=== PATIENT | male | born 1970 | race Caucasian/White ===

== ENCOUNTER 2017-04-02 14:18 | Inpatient (IN) | payer MEDICARE, OTHER ==
[~2017-04-02] VITALS: Ht 190.5 cm; Wt 115.1 kg
--- NOTE | ~2017-04-02 | HEMODYNAMI ---
PATIENT:FLO KAMARA MEDICAL RECORD: [id number] : 72 LOCATION:[address] ADMISSION DATE: 04/02/17 Generatedon:04/04/201712:53 Patient name: FLO KAMARA Patient #: [id number] SSN: : 1970 Date of study: 04/04/2017 Page: Of Hemodynamic Procedure Report Patient Data Patient Demographics Procedure consent was obtained First Name: FLO Gender: Male Last Name: ASAD : 1970 Middle Initial: P Age: 46 year(s) Patient #: [id number] Race: Unknown Additional ID: [id number] Contact details Address: [address] [place] [address] State: [place] City: [place] Zip code: [address] Admission Admission Data Admission Date: 04/02/2017 Admission Time: 18:48 Room #: D.2136 Procedure Procedure Types Cath Procedure Peripheral Cath Diagnostic Procedure Miscellaneous Procedure Description Procedure Date Procedure Date: 04/04/2017 Procedure Start Time: 11:53 Procedure Staff Name Function Mukund Johnson MD Performing Physician Yusuf Mari RT Scrub Mahogany Barnett RN Nurse Keren Campos RT Monitor Procedure Medications Medication Administration Route Dosage Versed I.V. 1 mg Fentanyl I.V. 50 mcg Versed I.V. 1 mg Fentanyl I.V. 50 mcg Hemodynamics Rest Heart Rate: 85 (bpm) Snapshots Pre Cath Intra NCS Post Cath Vital Signs Time Heart Resp SPO2 etCO2 NIBP (mmHg) Rhythm Pain Sedation Rate (ipm) (%) (mmHg) Status Level (bpm) 11:39:57 84 19 98 33.4 145/75(100) NSR 0 (11) 10(A) , No pain 11:44:15 84 15 97 38 138/77(99) NSR 0 (11) 10(A) , No pain 11:48:35 83 15 98 37.2 131/71(99) NSR 0 (11) 10(A) , No pain 11:52:54 84 19 96 35.6 129/73(103) NSR 0 (11) 10(A) , No pain 11:57:12 85 17 95 37.2 141/76(101) NSR 0 (11) 10(A) , No pain 12:01:30 86 24 94 36.4 131/78(105) NSR 0 (11) 10(A) , No pain 12:05:50 83 14 97 19.7 136/68(99) NSR 0 (11) 10(A) , No pain 12:10:08 83 13 98 15.9 137/64(98) NSR 0 (11) 10(A) , No pain 12:14:24 81 14 98 15.1 127/65(95) NSR 0 (11) 10(A) , No pain 12:18:38 81 12 98 38.6 122/58(82) NSR 0 (11) 10(A) , No pain 12:22:52 82 11 98 34.1 115/58(84) NSR 0 (11) 10(A) , No pain 12:27:06 84 12 98 38.7 119/56(78) NSR 0 (11) 10(A) , No pain 12:31:20 85 13 99 39.4 119/54(82) NSR 0 (11) 10(A) , No pain 12:35:32 85 11 99 37.2 108/55(78) NSR 0 (11) 10(A) , No pain 12:39:46 86 13 99 26.5 112/53(80) NSR 0 (11) 10(A) , No pain 12:44:02 85 11 99 26.5 114/56(76) NSR 0 (11) 10(A) , No pain 12:48:16 85 16 99 22 112/54(83) NSR 0 (11) 10(A) , No pain 12:52:30 86 13 99 30.3 119/58(85) NSR 0 (11) 10(A) , No pain Medications Time Medication Route Dose Verified Delivered Reason Notes Effectivene ss by by 11:55:42 Versed I.V. 1 mg Mukund Vides for Anibal Johnson RN sedation 11:55:54 Fentanyl I.V. 50 Mukund Vides for Anibal Parra RN sedation 12:09:08 Versed I.V. 1 mg Mukund Vides for Anibal Johnson RN sedation 12:09:17 Fentanyl I.V. 50 Mukund Vides for Anibal Parra RN sedation Procedure Log Time Note 11:30:22 Yusuf Mari RT (R) (CV) sent for patient. Start room use. 11:30:34 Time tracking: Regular hours 11:30:38 Plan of Care:Hemodynamics will remain stable., Cardiac rhythm will remain stable., Comfort level will be maintained., Respiratory function will remain adequate., Patient/ family verbilizes understanding of procedure., Procedure tolerated without complication., Recovers from procedure without complications.. 11:30:46 Patient arrived from Med II to IR. Patient remains on bed/stretcher for procedure. 11:30:51 Correct patient and procedure confirmed by team. 11:30:52 Signed procedure consent form obtained from patient. 11:30:53 ECG and BP/O2 sat monitors applied to patient. 11:30:54 Full Disclosure recording started 11:30:56 - 11:30:59 H&P Date Dictated: 04/04/2017 Within 30 days and on chart.. 11:38:43 Vital chart was started 11:38:44 Baseline sample Acquired. 11:38:48 - 11:38:51 Pre-procedure instructions explained to patient. 11:38:52 Pre-op teaching completed and patient verbalized understanding. 11:38:56 Family unavailable. 11:38:59 Patient NPO since Midnight. 11:39:07 Is patient on blood thinner?No 11:39:14 Patient diabetic? No. 11:39:18 - 11:39:22 ----Pre-sedation anethsthesia assessment.---- 11:39:25 Previous problem with sedation/anesthesia? No ? 11:39:32 Snore? Yes 11:39:35 Sleep apnea? No 11:39:38 Deviated septum? No 11:39:44 Opens mouth fully? Yes 11:39:48 Sticks out tongue? Yes 11:39:53 Airway obstruction? No ? 11:39:57 Dentures? No ? 11:39:59 - 11:40:12 IV patent on arrival in right wrist with 0.9% NaCl at O. 11:40:24 Right abdomen area was prepped with chlora-prep and draped in sterile fashion 11:40:26 Alarms reviewed by Nanci Schmid 11:40:27 Sharps counted by scrub and verified by Lesli 11:40:28 - 11:42:18 CONNECTING TUBE FOR DRAINAGE BAG opened to sterile field. 11:42:19 [id number] 8FR CATH DRAIN TRAY opened to sterile field. 11:51:44 Physician arrived 11:52:10 --------ALL STOP TIME OUT------ 11:52:11 Final Timeout: patient, procedure, and site verified with staff and physician. All members of the team are in agreement. 11:52:19 Physical assessment completed. ASA score P 3 - A patient with severe systemic disease as per Mukund Johnson MD. 11:52:27 Sedation plan: IV Moderate Sedation Versed, Fentanyl 11:52:42 Procedure started. 11:53:18 Local anesthetic to Abdominal area with Lidocaine 1% by Mukund Johnson MD.INITIAL ACCESS ONLY 11:55:42 Versed 1 mg I.V. was administered by Mahogany Barnett RN; for sedation; 11:55:54 Fentanyl 50 mcg I.V. was administered by Mahogany Barnett RN; for sedation ; 12:09:08 Versed 1 mg I.V. was administered by Mahogany Barnett RN; for sedation; 12:09:17 Fentanyl 50 mcg I.V. was administered by Mahogany Barnett RN; for sedation ; 12:49:45 17.6 fluid drained from abdomen 12:50:40 Procedure ended.(Physican Out) 12:53:57 Vital chart was stopped Device Usage Item Name Manufacture Quantity Catalog Hospital Part Current Mini mal Lot# / Number Charge Number Stock Stock Serial# Code CONNECTING TUBE [place] 1 [id number] [id number] [id number] 5 FOR DRAINAGE Scientific BAG [id number] CareFusion 1 [id number] 242955 5 8FR CATH DRAIN TRAY Signature Audit [place] Stage Time Signature Unsigned Intra-Procedure 04/04/2017 Keren Campos 12:53:53 PM RT(R) Signatures Monitor : Keren Campos RT Signature : Date : Time : [address] [address]
--- NOTE | ~2017-04-02 | HEMODYNAMI ---
PATIENT:FLO KAMARA MEDICAL RECORD: [id number] : 72 LOCATION:[place] [address] ADMISSION DATE: 04/02/17 Generatedon:04/07/201714:49 Patient name: FLO KAMARA Patient #: [id number] SSN: : 1970 Date of study: 04/07/2017 Page: Of Hemodynamic Procedure Report Patient Data Patient Demographics Procedure consent was obtained First Name: FLO Gender: Male Last Name: ASAD : 1970 Middle Initial: P Age: 46 year(s) Patient #: [id number] Race: Unknown Additional ID: [id number] Contact details Address: [address] [place] [address] State: [place] City: [place] Zip code: [address] Admission Admission Data Admission Date: 04/02/2017 Admission Time: 18:48 Room #: 2136 Height (in.): 75 BSA: 2.44 (m2) Height (cm.): 190.5 BMI: 32.22 (kg/m2) Weight (lbs.): 257.79 Weight (kg.): 116.93 Procedure Procedure Types Cath Procedure Diagnostic Procedure Right Heart RHC and LHC w/Coronaries Miscellaneous Procedures Moderate Sedation up to 45 minutes Procedure Description Procedure Date Procedure Date: 04/07/2017 Procedure Start Time: 14:00 Procedure End Time: 14:49 Procedure Staff Name Function Stanton Hollingsworth MD Performing Physician Nicanor Mckenna RN Nurse Gavin Griffiths RT Monitor Merry Graham RT Scrub Procedure Data Cath Procedure Fluoroscopy Diagnostic fluoroscopy Total fluoroscopy Time: time: 11.1 min 11.1 min Diagnostic fluoroscopy Total fluoroscopy dose: 835 dose: 835 mGy mGy Contrast Material Contrast Material Type Amount (ml) Isovue 300 59 Entry Location Entry Primary Successful Side Size Upsize Upsize Entry Closure Presley ccessful Closure Location (Fr) 1 (Fr) 2 (Fr) Remarks Device Remarks Femoral Right 5 Fr Exoseal artery Femoral Right 7 Fr Manual vein Short Compression Estimated blood loss: 10 ml Diagnostic catheters Device Type Used For End Catheter Placement Conti Lifesciences 7Fr Procedure Bartlett Thermodilution teresa Cordis 5Fr Pigtail Procedure Catheter (MP) Diagnostic Infinity 5Fr Procedure AL 1 catheter Cordis 5Fr Pigtail Procedure Catheter (MP) Cordis 5Fr JL 4.0 Procedure Catheter (MP) Cordis 5Fr 3DRC Catheter Procedure (MP) Procedure Complications No complications Procedure Medications Medication Administration Route Dosage 0.9% NaCl I.V. 100 ml/hr Heparin Flush Bag added to field 2 bags (1000units/500ml NS) Lidocaine 2% added to field 20 Versed I.V. 1 mg Fentanyl I.V. 25 mcg Hemodynamics Rest BSA: 2.44 (m2) O2 Consumption: Estimated: 314.43 (ml/min) O2 Consumption indexed : Estimated:128.86 (ml/min/m) Heart Rate: 91 (bpm) Oxygen Saturations Time Location Saturations Hgb (g/dl) O2 Content Use (%) (ml/L) 14:07 PCW 69.4 14:22 PA 73.7 14:23 AO 96.5 14:28 RV 73.9 14:29 RA 77.2 Pressure Samples Time Site Value (mmHg) Purpose Heart Use Rate(bpm) 14:07 PA (-6) Snapshot 90 14:07 PCW 24/25(23) Snapshot 90 14:19 LV 197/-9,17 Snapshot 92 14:19 PCW 35/36(29) Snapshot 92 14:19 LV 192/2,9 Snapshot 99 14:19 PCW 27/32(27) Snapshot 99 14:19 LV 200/-9,16 Snapshot 93 14:19 PCW 32/36(26) Snapshot 93 14:20 AO 164/70(106) Pullback 96 14:20 LV 223/-5,27 Pullback 96 14:21 PA 99/23(51) Snapshot 90 14:27 RV 93/21,20 Snapshot 91 14:28 RA 23/25(22) Snapshot 90 14:32 AO 161/77(112) Snapshot 89 Gradients Valve Time Site 1 Site 2 Mean SEP/DFP Peak To Heart Use (mmHg) (sec/min) Peak Rate (mmHg) (bpm) Aortic 14:20 LV AO 65 18 59 96 223/-5,27 164/70(106) Thermodilution Cardiac Output Time Cardiac Output (l/min) Use 14:25 11.02 l/m 14:26 13.83 l/m 14:27 12.73 l/m Calculations Vascular Value Indexed CO SV CO CI Resistance (dyne) values (ml/beat) (l/min) (l/(min*m)) TSVR 712.48 1738.45 Thermal 138.67 12.53 5.1 SVR 574.77 1402.44 TPVR 325.51 794.24 PVR 157.26 383.71 PVR/SVR 0.27 Systolic Diastolic Ejection Regurgitation SW SW I TPVR/TSVR 0.46 Vol. Vol. (%) (%) Source Thermal Left 16 3.88 67.16 Right 55.06 22.57 Source Thermal Valve P-P Mean Valve Index Valve Source Name Gradient Area Flow (cm2) Aortic 59 65 1.94 0.8 693.23 Thermal 59 65 Snapshots Thermal Samples Pre Cath Intra NCS Post Cath Vital Signs Time Heart Resp SPO2 etCO2 NIBP (mmHg) Rhythm Pain Sedation Rate (ipm) (%) (mmHg) Status Level (bpm) 13:32:57 89 20 95 30.9 175/89(127) NSR 0 (11) 10(A) , No pain 13:37:50 93 17 93 30.2 174/89(132) NSR 0 (11) 10(A) , No pain 13:42:46 91 20 95 29.4 169/90(126) NSR 0 (11) 10(A) , No pain 13:47:38 94 26 94 19.6 175/93(139) NSR 0 (11) 10(A) , No pain 13:52:35 92 22 93 18.1 165/81(124) NSR 0 (11) 10(A) , No pain 13:57:28 91 25 92 20.3 161/81(116) NSR 0 (11) 9(A) , No pain 14:02:17 91 21 91 16.6 151/82(117) NSR 0 (11) 9(A) , No pain 14:07:04 89 21 96 30 150/79(109) NSR 0 (11) 9(A) , No pain 14:11:50 90 22 96 20 147/75(113) NSR 0 (11) 9(A) , No pain 14:16:29 89 22 97 0 118/72(89) NSR 0 (11) 9(A) , No pain 14:21:55 90 21 97 0 162/80(118) NSR 0 (11) 9(A) , No pain 14:26:43 90 22 97 0 154/80(113) NSR 0 (11) 9(A) , No pain 14:31:34 92 22 97 0 162/80(120) NSR 0 (11) 10(A) , No pain 14:36:27 91 23 97 2.2 165/85(124) NSR 0 (11) 10(A) , No pain 14:41:18 91 22 98 3.7 168/82(112) NSR 0 (11) 10(A) , No pain 14:46:07 92 25 97 3 164/88(124) NSR 0 (11) 10(A) , No pain Medications Time Medication Route Dose Verified Delivered Reason Notes Effe ctiveness by by 13:26:03 0.9% NaCl I.V. 100 Nicanor Nicanor Per ml/hr Bala Mckenna physician RN RN 13:26:19 Heparin Flush added 2 Nicanor Nicanor used for Bag to bags Lorigan Lorigan procedure (1000units/500ml [facility] RN RN NS) 13:26:33 Lidocaine 2% added 20ml Nicanor Nicanor for local to vial Lorigan Lorigan anesthetic field RN RN 13:48:15 Versed I.V. 1 mg Nicanor Nicanor for Lorigan Lorigan sedation RN RN 13:48:37 Fentanyl I.V. 25 Nicanor Nicanor for mcg Lorigan Lorigan sedation RN esthetician Log Time Note 12:55:25 Gavin Griffiths RT(R) sent for patient. Start room use. 12:55:26 Time tracking: Regular hours 12:55:31 Plan of Care:Hemodynamics will remain stable., Cardiac rhythm will remain stable., Comfort level will be maintained., Respiratory function will remain adequate., Patient/ family verbilizes understanding of procedure., Procedure tolerated without complication., Recovers from procedure without complications.. 13:16:29 Patient received from PCU to CCL 1 Alert and oriented. Tansferred to table in Supine position. 13:16:30 Warm blankets applied, and theodora hugger turned on for patient comfort. 13:16:31 Correct patient and procedure confirmed by team. 13:16:32 Signed procedure consent form obtained from patient. 13:16:32 ECG and BP/O2 sat monitors applied to patient. 13:26:03 0.9% NaCl 100 ml/hr I.V. was administered by Nicanor Mckenna RN; Per physician; 13:26:19 Heparin Flush Bag (1000units/500ml NS) 2 bags added to field was administered by Nicanor Mckenna RN; used for procedure; 13:26:33 Lidocaine 2% 20ml vial added to field was administered by Nicanor Mckenna RN; for local anesthetic; 13:31:55 Vital chart was started 13:31:57 Baseline sample Acquired. 13:32:03 Rhythm: sinus rhythm 13:32:04 Full Disclosure recording started 13:32:11 H&P Date Dictated: 04/06/2017 Within 30 days and on chart.. 13:32:13 Pre-procedure instructions explained to patient. 13:32:13 Pre-op teaching completed and patient verbalized understanding. 13:32:18 Family in patients room. 13:32:19 Patient NPO since Midnight. 13:32:21 Is the patient allergic to Iodine/contrast media? No. 13:32:26 Is patient on blood thinner?No 13:32:31 Patient diabetic? No. 13:32:47 Previous problem with sedation/anesthesia? No ? 13:32:49 Snore? Yes 13:32:50 Sleep apnea? No 13:32:51 Deviated septum? No 13:32:52 Opens mouth fully? Yes 13:32:52 Sticks out tongue? Yes 13:32:54 Airway obstruction? No ? 13:32:55 Dentures? No ? 13:32:58 Pre procedure: right dorsailis pedis pulse 1+ Palpable, but thready & weak; easily obliterated 13:33:08 RESERVE LEFT ARM 13:33:16 Patient pain scale 0/10 ?. 13:33:20 IV patent on arrival in right forearm with 0.9% NaCl at KVO. 13:33:22 Lab results completed and on chart. 13:33:24 Right groin area was prepped with chlora-prep and draped in sterile fashion 13:33:25 Alarms reviewed by R. N. 13:33:25 Sharps counted by scrub and verified by R.N. 13:33:29 Use device set Femoral Dx 13:33:31 Tegaderm 4 x 4 opened to sterile field. 13:33:31 Acist Manifold opened to sterile field. 13:33:32 Acist Hand Control opened to sterile field. 13:33:34 Acist Syringe opened to sterile field. 13:33:34 Bag Decanter opened to sterile field. 13:33:35 Medline Cath Pack opened to sterile field. 13:33:35 Terumo 5Fr [place] Sheath opened to sterile field. 13:33:35 St [place] 260cm J .035 wire opened to sterile field. 13:33:36 Diagnostic Infinity 5Fr Multipack catheter opened to sterile field. 13:43:02 Cook 4Fr Micropuncture (L83339) opened to sterile field. 13:43:02 Terumo 7Fr [place] Sheath opened to sterile field. 13:48:15 Versed 1 mg I.V. was administered by Nicanor Mckenna RN; for sedation; 13:48:37 Fentanyl 25 mcg I.V. was administered by Nicanor Mckenna RN; for sedation; 13:49:27 Zero performed for pressure channel P1 13:49:27 Zero performed for pressure channel P2 13:52:33 Zero performed for pressure channel P2 13:52:33 Zero performed for pressure channel P1 13:52:37 Zero performed for pressure channel P1 13:52:37 Zero performed for pressure channel P2 13:55:59 Zero performed for pressure channel P1 13:55:59 Zero performed for pressure channel P2 13:56:00 Zero performed for pressure channel P1 13:56:00 Zero performed for pressure channel P2 13:56:12 Zero performed for pressure channel P2 13:56:15 Zero performed for pressure channel P2 13:59:01 Zero performed for pressure channel P2 13:59:03 Zero performed for pressure channel P2 13:59:06 Zero performed for pressure channel P2 13:59:09 Zero performed for pressure channel P2 13:59:45 Case delayed due to problem with secondary pressure transducer, problem resolved. 13:59:55 --------ALL STOP TIME OUT------ 13:59:55 Final Timeout: patient, procedure, and site verified with staff and physician. All members of the team are in agreement. 13:59:58 Right groin site verified by team. 14:00:01 Physical assessment completed. ASA score P 2 - A patient with mild systemic disease as per Stanton Hollingsworth MD. 14:00:04 Sedation plan: IV Moderate Sedation Versed, Fentanyl 14:00:21 Procedure started. 14:00:24 Local anesthetic to right femoral artery with Lidocaine 2% by Stanton Hollingsworth MD.INITIAL ACCESS ONLY 14:00:34 Access obtained with 4Fr micropunture. 14:00:45 A 5 Fr sheath was inserted into the Right Femoral artery 14:00:55 Zero performed for pressure channel P2 14:01:15 Access obtained with 4Fr micropunture. 14:01:26 A 7 Fr Short sheath was inserted into the Right Femoral vein 14:01:56 Acist Hand Control opened to sterile field. 14:02:54 Second Acist Hand Controls opened to use with second transducer to measure simultanious pressures. 14:03:28 A Conti [employer] International 7Fr Bartlett Thermodilution teresa was advanced over the wire and used for Procedure. 14:05:38 St [place] 150cm J .025 wire opened to sterile field. 14:05:54 Wire used to advance swan. 14:07:14 PCW saturation: 69.4% 14:07:41 A Cordis 5Fr Pigtail Catheter (MP) was advanced over the wire and used for Procedure. 14:09:38 Terumo ANGLE 260cm glide wire opened to sterile field. 14:10:01 [place] wire advanced to assist in crossing the aortic valve. 14:13:15 [place] [address] 260 .035 glide wire opened to sterile field. 14:13:26 Catheter exchanged over wire. 14:13:38 A Diagnostic Infinity 5Fr AL 1 catheter was advanced over the wire and used for Procedure. 14:14:20 [place] exchange for [place]. 14:14:55 Wire advanced across valve. 14:15:04 Catheter exchanged over wire. 14:15:12 A Cordis 5Fr Pigtail Catheter (MP) was advanced over the wire and used for Procedure. 14:20:26 LV hemodynamics recorded. 14:21:11 Catheter removed. 14:22:38 PA saturation: 73.7% 14:23:32 AO saturation: 96.5% 14:25:48 Thermodilution performed using a Conti 131F7 7.0 Fr 19-22C 10.00 mL. Injectate temperature was 15.95 C, CO: 11.02 L/min, average CO: 12.53 L/min 14:26:31 Thermodilution performed using a Conti 131F7 7.0 Fr 19-22C 10.00 mL. Injectate temperature was 15.81 C, CO: 13.83 L/min, average CO: 12.53 L/min 14:27:05 Thermodilution performed using a Conti 131F7 7.0 Fr 19-22C 10.00 mL. Injectate temperature was 15.73 C, CO: 12.73 L/min, average CO: 12.53 L/min 14:28:26 RV saturation: 73.9% 14:29:00 RA saturation: 77.2% 14:31:07 Bartlett-Lakshmi removed. 14:31:33 A Cordis 5Fr JL 4.0 Catheter (MP) was advanced over the wire and used for Procedure. 14:32:15 LCA angiography performed. 14:34:50 Catheter exchanged over wire. 14:35:08 A Cordis 5Fr 3DRC Catheter (MP) was advanced over the wire and used for Procedure. 14:36:13 RCA angiography performed. 14:36:37 Catheter removed. 14:36:54 Cordis 5Fr Exoseal opened to sterile field. 14:37:11 Sheath removed intact; hemostasis achieved with Exoseal to the Right Femoral artery. 14:37:34 Procedure ended.(Physican Out) 14:39:25 Patient Height : 75 inches 14:39:28 Patient Weight : 257.79 lbs 14:41:01 Sheath removed intact; hemostasis achieved with Manual Compression to the Right Femoral vein. 14:45:24 Fluoroscopy time 11.10 minutes. 14:45:28 Fluoroscopy dose: 835 mGy 14:45:28 Flurop Dose total: 835 14:45:32 Contrast amount:Isovue 300 59ml. 14:45:34 Sharps counted by scrub and verified by R.N. 14:45:35 Insertion/operative site no bleeding no hematoma. 14:45:39 Post-op/insertion site Right Femoral artery dressed using a 4 x 4 and Tegaderm. 14:45:47 Post Procedure Pulses reassessed and unchanged 14:45:51 Post-procedure physical assessment completed. ASA score P 2 - A patient with mild systemic disease as per Stanton Hollingsworth MD. 14:45:54 Post procedure rhythm: unchanged. 14:46:00 Estimated blood loss: 10 ml 14:46:02 Post procedure instruction explained to patient.Patient verbalizes understanding. 14:46:03 Patient needs reinforcement of post procedure teaching. 14:46:18 Procedure type changed to Cath procedure, Diagnostic procedure, Right Heart, RHC and LHC w/Coronaries, Miscellaneous Procedures, Moderate Sedation up to 45 minutes 14:46:19 Procedure and supply charges have been captured, reviewed, submitted and are correct. 14:46:22 Procedure Complication : No complications 14:49:09 Vital chart was stopped 14:49:09 See physician's report for complete and final results. 14:49:16 Report given to PCU. 14:49:19 Patient transfered to PCU with Bed. 14:49:22 Procedure ended. 14:49:22 Full Disclosure recording stopped 14:49:28 End room use (Document Last) Device Usage Item Name Manufacture Quantity Catalog Hospital Part Current Minima l Lot# / Number Charge Number Stock Stock Serial# Code Tegaderm 4 x 4 3M 1 [id number] 908924 079495 5 Acist Manifold Acist 1 19908 551264 757055 589639 5 [employer] Inc Acist Hand Acist 2 80051 229992 231330 887148 5 Control Medical Systems Inc Acist Syringe Acist 1 06960 627902 068842 295390 20 Medical Systems Inc Bag Decanter Microtek 1 2002S 645190 24487 165270 5 Medical Inc. Medline Cath Cardinal 1 [id number] 875417 75838 831711 5 Pack Health Terumo 5Fr Terumo 1 [id number] 827147 436910 188973 [address] [place] [address] [place] 1 984390 972474 727759 379996 30 J .035 wire Diagnostic Cardinal 1 DE1353 217241 69428 445364 30 Infinity 5Fr Health Multipack catheter Cook 4Fr Screen 1 O59668 579829 471955 543110 5 Micropuncture (P66137) Terumo 7Fr Terumo 1 JRG062 599057 682683 882722 5 [place] Sheath Conti Cnoti 1 131F7P 691465 21214 394252 3 Lifesciences Lifesciences 7Fr Bartlett Thermodilution teresa [facility] [place] 150cm [facility] [place] 1 609194 172605 389960 120140 2 J .025 wire Cordis 5Fr Cardinal 1 239446 5 Pigtail Health Catheter (MP) Terumo ANGLE Terumo 1 KG1459 621740 836003 221689 5 260cm glide wire [facility] 1 H98837 850601 279384 397840 5 [address] 260 .035 glide wire Diagnostic Cardinal 1 [id number] 843267 672900 162203 15 Infinity 5Fr Health AL 1 catheter Cordis 5Fr JL Cardinal 1 796323 5 4.0 Catheter Health (MP) Cordis 5Fr Cardinal 1 026357 5 3DRC Catheter Health (MP) Cordis 5Fr Cardinal 1 EX500 202424 863545 931909 10 [facility] Health Signature Audit [place] Stage Time Signature Unsigned Intra-Procedure 04/07/2017 Gavin Griffiths 2:49:45 PM RT(R) Signatures Monitor : Gavin Griffiths RT Signature : Date : Time : [facility] [address] [place] [address]
[~2017-04-02 14:18] MED LIST: CATAPRES0.2 MG PO; COZAAR50 MG PO; FISH OIL 1,0001 CA1 PO; LASIX80 MG PO; LEVAQUIN250 MG PO; ZOFRAN4 MG PO
[2017-04-02 16:21] LABS: BASOPHILS 0.6 % (0-2); EOSINOPHILS 2.7 % (0-7); HEMATOCRIT 24.8 % (42.0-54.0); HEMOGLOBIN 8.7 g/dL (13.5-17.5); IMMATURE GRANULOCYTES 0.2 % (0-5); LYMPHOCYTES 7.8 % (15-50); MCH 29.3 pg (26.0-34.0); MCHC 35.1 g/dL (31.0-37.0); MCV 83.5 fL (80.0-100.0); MEAN PLATELET VOLUME 9.3 fL (7.4-10.4); MONOCYTES 8.2 % (2-11); NEUTROPHILS 80.5 % (40-80); PLATELET COUNT 189 10x3/uL (130-400); RBC 2.97 10x6/uL (4.20-6.10); RDW 12.3 % (11.5-14.5); WBC 5.2 10x3/uL (4.8-10.8)
[2017-04-02 16:26] LABS: ANION GAP 19.9 mmol/L (8-16); CALCIUM 9.2 mg/dL (8.5-10.1); CARBON DIOXIDE 23.7 mmol/L (21.0-32.0); CREATININE - SERUM 10.6 mg/dL (0.6-1.3); POTASSIUM - SERUM 4.6 mmol/L (3.5-5.1)
[2017-04-02 17:05] LABS: INR 1.21 (0.85-1.17); PROTIME 15.2 SECONDS (11.6-15.0)
[2017-04-02 17:11] LABS: ALBUMIN 3.2 g/dL (3.4-5.0); BILIRUBIN - DIRECT 0.2 mg/dL (0.00-0.30); BILIRUBIN - INDIRECT 0.48 mg/dL (0.00-1.00); BILIRUBIN - TOTAL 0.68 mg/dL (0.2-1.3); PROTEIN - SERUM 7.8 g/dL (6.4-8.2)
[2017-04-02 19:00] VITALS: BP 114/63
[2017-04-02] MEDS ORDERED: LONITEN10 MG PO (20:06)
[2017-04-02] MEDS ORDERED: LOPRESSOR25 MG PO (20:07)
[2017-04-02] MEDS ORDERED: NORMODYNE / TR200 MG PO (20:08)
[2017-04-03] VITALS: BP 102/47
--- NOTE | 2017-04-03 00:19 | NUR ---
PT SLEEPING, BED IS LOW, SRX2, CALL LIGHT IN REACH, WILL CONTINUE PLAN OF CARE
[2017-04-03 04:03] VITALS: BP 112/47
[2017-04-03 06:19] VITALS: BMI 36.9
--- NOTE | 2017-04-03 07:45 | NUR ---
AM ROUNDS COMPLETED AND SHIFT ASSESSMENT DONE. PT A&O SITTING UP IN BED RESTING QUIETLY. PTS ABDOMEN VERY TIGHT AND DISTENDED, BOWEL SOUNDS VERY DISTANT BUT HEARD OR COULD BE FLUID MOVING. PT ALSO HAS SWELLING TO HIS LOWER BACK AND A KNOT THAT IS RED AND PAINFUL, PT DENIES FALLING OR KNOWING SOURCE BUT STATES IT STARTED THUMBSIZE AND IS NOW ABOUT 10CM BIG DID NOT MEASURE THOUGH. CT DID NOT SHOW A HEMATOMA OR ANY OTHER ISSUE THOUGH. WILL NOTIFY DOCTOR OF IT. BILAT LE SWOLLEN, RIGHT CALF IS BIGGER THOUGH AND HAS REDDNESS TO THE INTERIOR SIDE THAT APPEARS TO BE CELLULITIS HOWEVER PT DOES STATE HE HAS HX OF STAPH INFECTION AT THAT LOCATION. PERIPHERAL PULSES WNL BILAT LE AND PT STATES HIS R.LEG WAS DOPPLERED FOR POSSIBLE CLOT BUT RESULT WAS NEGATIVE AT [facility], WILL TRY TO GET REPORT. PT DENIES ANY CURRENT NEEDS WILL CONTACT PRIMARY ABOUT HOME MEDS AND FURTHER ORDERS. CL IN REACH, BED IN LOWEST, SIDE RAILS X2. WILL CPOC.
[2017-04-03 08:00] VITALS: BP 128/58
--- NOTE | 2017-04-03 09:20 | NUR ---
CALLED RADIOLOGY ABOUT CONSULT FOR POSSIBLE PARACENTESIS AND THEY ARE AWARE OF CONSULT AND WILL CONTACT ON-CALL PHYSICIAN.
--- NOTE | 2017-04-03 11:30 | NUR ---
CRISTIAN WITH RADIOLOGY CALLED TO MAKE SURE PT IS NPO AFTER MIDNIGHT AND ORDERS TO OBTAIN CONSENT FOR CT GUIDED PARACENTESIS TOMORROW MORNING HOPEFULLY ABLE TO PLAN AND SCHEDULE. RENAL STEAM BOX HAND AT BEDSIDE ASSESSING PT NO CURRENT NEEDS AT THIS TIME. WILL CPOC.
[2017-04-03 12:00] VITALS: BP 131/57
[2017-04-03] MEDS ORDERED: SENSIPAR90 MG PO (12:07)
[2017-04-03] MEDS ORDERED: FERRIC CITRATE210 MG PO (12:08)
[2017-04-03] MEDS ORDERED: PEPCID20 MG PO (12:09)
[2017-04-03] MEDS ORDERED: NEPHRO-VITE RX1 TAB PO (12:10)
--- NOTE | 2017-04-03 13:32 | NUR ---
PROVIDED PT WITH PRN PAIN MEDICATION AND ORDERED MEDICATIONS. PT RESTING WITH FAMILY AT BEDSIDE AND DENIES ANY FURTHER NEEDS AT THIS TIME. STOOL SPECIMEN NEEDED FOR OCCULT PT STATES HX OF GI BLEED AND LOW BLOOD LEVELS, WILL COLLECT WHEN AVAILABLE.
--- NOTE | 2017-04-03 14:45 | NUR ---
INTIATED PTS IV IRON NOW THAT PHARMACY BROUGHT IT UP. PT STATES BUPRENEX DID HELP RELIEVE SOME PAIN AND VOICED THANKS. PT SITTING UP IN BED RESTING QUIETLY AND DENIES ANY CURRENT NEEDS. CL IN REACH, BED IN LOWEST, SIDE RAILS X2. WILL CPOC.
[2017-04-03 16:00] VITALS: BP 128/59
--- NOTE | 2017-04-03 16:12 | NUR ---
IRON INFUSION COMPLETED. FLUSHED PIV AND SL.
--- NOTE | 2017-04-03 17:11 | NUR ---
PT REFUSED HIS RENAGEL AND STATES HE IS WORRIED ABOUT BEING CONSTIPATED AND THAT HE RARELY TAKES IT AT HOME FOR THAT REASON BUT HE WATCHES HOW MUCH PHOSPHORUS HE EATS CLOSELY. PT SITTING UP IN BED EATING DINNER, DENIES ANY FURTHER NEEDS AT THIS TIME. CL IN REACH, BED IN LOWEST, SIDE RAILS X2, WILL CPOC.
--- NOTE | 2017-04-03 19:10 | NUR ---
RECEIVED REPORT, WILL ASSUME CARE OF PT, PT ALERT & ORIENTATED, WATCHING TV, DENIES ANY NEEDS AT THIS TIME, BED IS LOW, SR2, CALL LIGHT IN REACH, WILL CONTINUE PLAN OF CARE
--- NOTE | 2017-04-03 19:23 | NUR ---
CALLED [facility]EN TO GET MIRALAX AND PROTONIX THAT IS TO BE GIVEN AT 191
--- NOTE | 2017-04-03 20:15 | NUR ---
PT PULLED IV OUT
[2017-04-03 20:26] VITALS: BP 141/60
[2017-04-04] VITALS (13 sets, daily range): BP systolic 105–197; BP diastolic 38–86
--- NOTE | 2017-04-04 03:53 | NUR ---
ASSESSMENT COMPLETE, SEE FLOW SHEET, IV -RESITED TO RFA, CONSENT SIGNED, BEEN NPO SINCE MIDNIGHT, PT NOW SLEEPING, BED IS LOW, SR2, CALL LIGHT IN REACH, WILL CONTINUE PLAN OF CARE
[2017-04-04 05:12] LABS: BASOPHILS 0.8 % (0-2); EOSINOPHILS 2.4 % (0-7); HEMATOCRIT 22.3 % (42.0-54.0); HEMOGLOBIN 7.8 g/dL (13.5-17.5); IMMATURE GRANULOCYTES 0.2 % (0-5); LYMPHOCYTES 10.3 % (15-50); MCH 29.5 pg (26.0-34.0); MCV 84.5 fL (80.0-100.0); MEAN PLATELET VOLUME 8.7 fL (7.4-10.4); MONOCYTES 7.7 % (2-11); NEUTROPHILS 78.6 % (40-80); PLATELET COUNT 179 10x3/uL (130-400); RBC 2.64 10x6/uL (4.20-6.10); RDW 12.6 % (11.5-14.5)
[2017-04-04 05:23] LABS: INR 1.2 (0.85-1.17); PROTIME 15.1 SECONDS (11.6-15.0)
[2017-04-04 05:31] LABS: % SATURATION 28 % (15-55); IRON 67 ug/dl (35-150); TOTAL IRON BIND CAPACITY 232 ug/dl (260-445); UNSAT IRON BIND CAPACITY 165 ug/dl (150-375)
[2017-04-04 05:48] LABS: ALBUMIN 3.3 g/dL (3.4-5.0); ANION GAP 22.3 mmol/L (8-16); BILIRUBIN - DIRECT 0.19 mg/dL (0.00-0.30); BILIRUBIN - TOTAL 0.7 mg/dL (0.2-1.3); CALCIUM 9.1 mg/dL (8.5-10.1); CARBON DIOXIDE 20.3 mmol/L (21.0-32.0); CHOL - HDL RATIO 3.4 ratio (2.3-4.9); CREATININE - SERUM 11.9 mg/dL (0.6-1.3); LDL-HDL RATIO 2.2 ratio (1.5-3.5); PRE-ALBUMIN 12.1 mg/dL (18.0-35.7); PROTEIN - SERUM 7.3 g/dL (6.4-8.2)
[2017-04-04 05:49] LABS: PHOSPHOROUS 11.4 mg/dL (2.5-4.9)
[2017-04-04 05:50] LABS: POTASSIUM - SERUM 5.6 mmol/L (3.5-5.1)
--- NOTE | 2017-04-04 07:38 | NUR ---
AM ROUNDS - PT IS IN BED AND AWAKE AT THIS TIME. PT IS HAVING AN U/S OF ABD AT BEDSIDE. PT IS A LEFT ARM RESERVE. IV TO RIGHT FA, SL. UP AD ELLIS. NON SKID SOCKS ON. CALL RAINES IN USE/REACH. SIDE RAILS UP 2. NO NEEDS AT THIS TIME. WILL CONTINUE TO MONITOR
--- NOTE | 2017-04-04 11:15 | NUR ---
PT LEFT FLOOR VIA BED WITH STAFF MEMBER FOR PROCEDURE
--- NOTE | 2017-04-04 14:13 | NUR ---
UNABLE TO HANG FERRLECIT AT THIS TIME. DO NOT HAVE IT ON THE FLOOR. PHARMACY AWARE.
--- NOTE | 2017-04-04 15:14 | NUR ---
PT IN BED WITH NO NEEDS AT THIS TIME. FAMILY AT BEDSIDE. WILL CONTINUE TO MONITOR
[2017-04-04 17:18] LABS: NEUT - BF 3 %
[2017-04-04 17:19] LABS: MACROPHAGES BF 2 %; MESOTHELIALS BF 19 %
--- NOTE | 2017-04-04 19:45 | NUR ---
PT RESTING IN BED. FAMILY AT BEDSIDE. DIALYSIS CALLED FOR PT. PT TAKING DOWN TO DIALYSIS. VS STABLE. PT DENIES ANY NEEDS. NO S/S OF DISTRESS. WILL CPOC
--- NOTE | 2017-04-04 23:44 | NUR ---
PT BACK TO ROOM. C/O LOWER BACK PAIN 11/27. PRN PAIN MED GIVEN. PT RESTING IN BED. DENIES ANY NEEDS. WILL CPOC
--- NOTE | 2017-04-05 02:59 | NUR ---
PT ASLEEP, AROUSES TO VERBAL STIMULI. PT STATES PAIN IN BACK IS STILL THERE BUT NO BAD. DENIES ANY NEEDS AT THIS TIME. NO S/S OF DISTRESS. BED LOW AND CALL LIGHT IN REACH. WILL CPOC
[2017-04-05 05:07] VITALS: BP 104/33
[2017-04-05 05:09] LABS: BASOPHILS 0.7 % (0-2); HEMOGLOBIN 7.6 g/dL (13.5-17.5); IMMATURE GRANULOCYTES 0.2 % (0-5); LYMPHOCYTES 7.7 % (15-50); MCH 29.2 pg (26.0-34.0); MCHC 34.5 g/dL (31.0-37.0); MCV 84.6 fL (80.0-100.0); MEAN PLATELET VOLUME 9.2 fL (7.4-10.4); MONOCYTES 8.9 % (2-11); NEUTROPHILS 80.5 % (40-80); PLATELET COUNT 175 10x3/uL (130-400); RDW 12.6 % (11.5-14.5); WBC 4.4 10x3/uL (4.8-10.8)
[2017-04-05 05:49] LABS: ALBUMIN 3.1 g/dL (3.4-5.0); BILIRUBIN - DIRECT 0.21 mg/dL (0.00-0.30); BILIRUBIN - INDIRECT 0.49 mg/dL (0.00-1.00); BILIRUBIN - TOTAL 0.7 mg/dL (0.2-1.3); CARBON DIOXIDE 24.4 mmol/L (21.0-32.0); PROTEIN - SERUM 6.6 g/dL (6.4-8.2)
[2017-04-05 05:51] LABS: CREATININE - SERUM 8.4 mg/dL (0.6-1.3); PHOSPHOROUS 8.1 mg/dL (2.5-4.9); POTASSIUM - SERUM 4.4 mmol/L (3.5-5.1)
--- NOTE | 2017-04-05 06:50 | NUR ---
PT RESTING IN BED. DENIES ANY NEEDS STATES HE IS WAITING FOR BREAKFAST NETTIED JAIDEN THE MEDICAL APPOINTMENT SCHEDULER LOAN SERVICING SPECIALIST REGARDING HIS H&H, AND ORDERS PUT IN TO HAVE PRBC WITH DIALYSIS TODAY BUT ALSO AN ORDER IN FOR DIALYSIS ,. PT DENIES ANY PAIN, DENIES ANY NEEDS. WILL CPOC
[2017-04-05 08:13] VITALS: BP 115/45
[2017-04-05 08:20] LABS: FOLATE (FOLIC ACID) - SERUM 10.2 ng/mL (>3.0)
[2017-04-05 10:36] VITALS: Ht 190.5 cm; Wt 115.1 kg
[2017-04-05 11:16] LABS: HEPATITIS C ANTIBODY <0.1 (0.0-0.9)
[2017-04-05 12:14] VITALS: BP 125/46
[2017-04-05 12:18] LABS: ALPHA FETOPROTEIN -(TUMOR MRK) 2.3 ng/mL (0.0-8.3); ANA REFLEX - DIRECT Negative (Negative)
[2017-04-05 13:14] LABS: EBV - EARLY ANTIGEN AB IGG <9.0 U/mL (0.0-8.9); EBV VIRAL CAPSID AB IGG <18.0 U/mL (0.0-17.9); EBV VIRAL CAPSID AB IGM <36.0 U/mL (0.0-35.9)
[2017-04-05 17:13] VITALS: BP 134/52
--- NOTE | 2017-04-05 19:03 | NUR ---
ALERT AND ORIENTED X4. SITTING UP IN BED. WAITING FOR DIALYSIS. CONSENTS FOR FABRICATION MIG WELDER SIGNED ON CHART. DENIES ANY NEEDS. CONTINUE PLAN OF CARE AND SAFETY PRECAUTIONS.
[2017-04-05 20:47] VITALS: BP 147/61
--- NOTE | 2017-04-05 23:09 | NUR ---
PT SITTING ON SIDE OF BED WITH HIS BACK GUNNER'S MATE G, SPEAKING WITH HIS NURSE, HEATHER. PT IS ASKING ABOUT TAKING A SHOWER IN THE MORNING PRIOR TO HIS PROCEDURE. PT DENIES ANY NEEDS. CONTINUE TO MONITOR CLOSELY.
[2017-04-06 00:52] VITALS: BP 166/70
[2017-04-06 04:37] VITALS: BP 179/71
[2017-04-06 05:51] LABS: BASOPHILS 0.7 % (0-2); EOSINOPHILS 5.8 % (0-7); HEMATOCRIT 25.7 % (42.0-54.0); HEMOGLOBIN 8.7 g/dL (13.5-17.5); LYMPHOCYTES 11.4 % (15-50); MCH 29.2 pg (26.0-34.0); MCHC 33.9 g/dL (31.0-37.0); MCV 86.2 fL (80.0-100.0); MEAN PLATELET VOLUME 9.3 fL (7.4-10.4); MONOCYTES 9.1 % (2-11); PLATELET COUNT 188 10x3/uL (130-400); RBC 2.98 10x6/uL (4.20-6.10); RDW 12.7 % (11.5-14.5); WBC 4.3 10x3/uL (4.8-10.8)
[2017-04-06 06:11] LABS: ANION GAP 17.9 mmol/L (8-16); BILIRUBIN - TOTAL 1.04 mg/dL (0.2-1.3); CALCIUM 8.9 mg/dL (8.5-10.1); CARBON DIOXIDE 24.3 mmol/L (21.0-32.0); CREATININE - SERUM 8.1 mg/dL (0.6-1.3); POTASSIUM - SERUM 4.2 mmol/L (3.5-5.1); PROTEIN - SERUM 6.9 g/dL (6.4-8.2)
--- NOTE | 2017-04-06 08:00 | NUR ---
JEFF BARTHOLOMEW APN FOR CARDIO IN ROOM AND NOT WANTING TO DO CATH WITH HGB LOW AT 8.7 AND WOULD LIKE IT AT 9 OR HIGHER BEFORE CATH. WILL ORDER PT A TRAY AND CONTACT RENAL TO SEE IF PT NEEDS ANY PRBCS SO CATH CAN BE DONE TOMORROW. WAITING GASTROINTESTINAL TECHNICIAN BACK.
[2017-04-06 08:19] VITALS: BP 132/64
--- NOTE | 2017-04-06 11:19 | NUR ---
CALLED [facility] AND WAITING ON PTS KPAD TO APPLY TO R.LEG ORDERED BY RENAL. PT CURRENTLY AMBULATING AROUND THE NURSES STATION WITH SAFE GAIT. DENIES ANY CURRENT PAIN OR NEEDS. WILL CPOC.
[2017-04-06 12:10] VITALS: BP 137/56
[2017-04-06 14:22] LABS: MITOCHONDRIAL ANTIBODY 6.4 Units (0.0-20.0); SMOOTH MUSCLE ABS (ACTIN) 11 Units (0-19)
--- NOTE | 2017-04-06 14:39 | NUR ---
JUST INFORMED PER OFFICE HELPER CLERICAL MITCHELL THAT RENAL CHIEF CONTROLLER STATION IS NOT SECURITIES RESEARCH ANALYST TODAY. SPOKE TO ROUNDING RENAL DOCTOR AND HE IS AWARE CATH WILL NOT BE DONE R/T HGB OF 8.7 AND DOES NOT WISH TO TRANSFUSE AT THIS TIME, WILL WAIT FOR PRIMARY RENAL IN AM.
[2017-04-06 15:43] VITALS: BP 121/53
[2017-04-06 19:00] VITALS: BP 148/61
--- NOTE | 2017-04-06 20:02 | NUR ---
RESUMED CARE OF PT, LYING IN BED WITH EYES CLOSED RESPIRATIONS EVEN AND UNLABORED ON ROOM AIR. RIGHT FOREARM SALINE LOCKED. PLACED ON TELEMETRY 73 SR. CALL LIGHT INR EACH. WILL CONTINUE TO MONITOR. SEE NURSE ASSESSMENT.
[2017-04-07] VITALS (11 sets, daily range): BP systolic 122–178; BP diastolic 50–83
[2017-04-07 05:09] LABS: BASOPHILS 0.4 % (0-2); EOSINOPHILS 6.9 % (0-7); HEMATOCRIT 24.1 % (42.0-54.0); HEMOGLOBIN 8.3 g/dL (13.5-17.5); IMMATURE GRANULOCYTES 0.2 % (0-5); LYMPHOCYTES 10.1 % (15-50); MCH 29.6 pg (26.0-34.0); MCHC 34.4 g/dL (31.0-37.0); MCV 86.1 fL (80.0-100.0); MONOCYTES 8.9 % (2-11); NEUTROPHILS 73.5 % (40-80); PLATELET COUNT 185 10x3/uL (130-400); RDW 12.6 % (11.5-14.5)
[2017-04-07 05:30] LABS: ALBUMIN 2.7 g/dL (3.4-5.0); BILIRUBIN - TOTAL 0.59 mg/dL (0.2-1.3); CALCIUM 8.5 mg/dL (8.5-10.1); CARBON DIOXIDE 23.6 mmol/L (21.0-32.0); CREATININE - SERUM 9.5 mg/dL (0.6-1.3); POTASSIUM - SERUM 4.6 mmol/L (3.5-5.1); PROTEIN - SERUM 6.4 g/dL (6.4-8.2)
[2017-04-07 05:31] LABS: PHOSPHOROUS 9.2 mg/dL (2.5-4.9)
--- NOTE | 2017-04-07 06:44 | NUR ---
NO CHANGES FROM PREVIOUS ASSESSMENT, CALL LIGHT IN REACH.
--- NOTE | 2017-04-07 07:48 | NUR ---
PTS HGB STILL BELOW 9 TODAY. CURRENTLY 8.3, CATH TEAM STILL PLANNING ON CATH LATER TODAY, PT CURRENTLY NPO AND VERBALIZED UNDERSTANDING. CL IN REACH, BED IN LOWEST, SIDE RAILS X2 NO CURRENT NEEDS AT THIS TIME. WILL CPOC.
--- NOTE | 2017-04-07 09:35 | NUR ---
KPAD REORDERED IT NEVER ARRIVED YESTERDAY AND IS TO BE APPLIED TO R.CALF AT ALL TIMES.
--- NOTE | 2017-04-07 11:58 | NUR ---
PT ASKING ABOUT WHEN HEART CATH WILL BE. CALLED CATH AND HAS 3 IN FRONT OF PT. DISCUSSED WITH PT AND FAMILY AND THEY VERBALIZED UNDERSTANDING AND WILL CONTINUE TO WAIT. CL IN REACH, NO FURTHER NEEDS AT THIS TIME.
--- NOTE | 2017-04-07 12:38 | NUR ---
* Is the patient Alert and Oriented? Yes 0 * How many steps to enter\exit or inside your home? 0 0 * PCP Dr. Italo Hays Anderstayo Winters 0 * Pharmacy [facility] in [facility] in [place] 0 * Preadmission Environment Home with Family 0 * ADLs Independent 0 * Equipment Other 0 * Other Equipment Home HD supplies 0 * List name and contact numbers for known caregivers / representatives who currently or will assist patient after discharge: Spouse - Vickie [phone] 0 * Additional services required to return to the preadmission environment? No 0 * Can the patient safely return to the preadmission environment? Yes Patient Name: FLO KAMARA Admission Status: ER Accout number: [id number] Admission Date: 04-02-2017 : 1970 Admission Diagnosis:OTHER ASCITES Attending: SYLWIA GONZALES Current LOS: 5 Planned Disposition: Home Primary Insurance: MEDICARE A & B Discharge Planning Comments: CM met with patient to assess dc plans/needs. Patient states he lives at home with his , Vickie. He reports he is independent with all ADL's & AIDL's. He does his own HD at home. He denies using any assistive devices for mobility. At dc, he will return home with his . He does not think he will need home health at this time. CM will follow. Tan Room Supervisor: Ritika Ferreira
--- NOTE | 2017-04-07 12:42 | NUR ---
CATH CALLED TO PRE-OP PT. PRE-OP MEDS GIVEN AND PT WAITING WITH FAMILY AT BEDSIDE. WILL CPOC.
--- NOTE | 2017-04-07 13:14 | NUR ---
PT LEAVING FOR CATH NOW.
--- NOTE | 2017-04-07 14:19 | NUR ---
Nutrition Follow Up: Pt is eating 96% meal avg on a renal diet. No BM since admit. Wt loss noted - likely r/t fluid loss. Meds and labs reviewed. Rec continue current diet. RD following.
--- NOTE | 2017-04-07 15:23 | NUR ---
PT BACK FROM REBAR WORKER. VSS AND BEING MONITERED [id number] PER POST PROCEDURE PROTOCOL. PT AWAKE AND ALERT AND STATES "IM HUNGRY" WILL GET TRAY ORDERED. PT IS TO LAY FLAT X2 HOURS AND VERBALIZED UNDERSTANDING. HORACIO SCHWARZG CDI NO S/S OF BLEEDING OR HEMATOMA NOTED. PERIPHERAL PULSES INTACT. FAMILY AT BEDSIDE AND IN ROOM DISCUSSING PROCEDURE WITH FAMILY AND PT. NO FURTHER NEEDS AT THIS TIME, CL IN REACH, BED IN LOWEST, SIDE RAILS X2. WILL CPOC.
--- NOTE | 2017-04-07 17:07 | NUR ---
PTS 2 HOUR LAY COMPLETED. ASSISTED PT UP IN BED AND WITH HIS FOOD TRAY. VSS AND STILL BEING MONITERED. R.JAIRON DRSG CDI NO S/S OF BLEEDING OR HEMATOMA NOTED. PERIPHERAL PULSES INTACT AND NORMAL. WILL CTM.
--- NOTE | 2017-04-07 17:58 | NUR ---
PT FINALLY ABLE TO HAVE A BOWEL MOVEMENT. SPECIMEN COLLECTED AND SENT TO LAB. PT SITTING UP IN BED RESTING QUIETLY AND DENIES ANY FURTHER NEEDS AT THIS TIME. CL IN REACH. WILL CPOC.
--- NOTE | 2017-04-07 20:29 | NUR ---
EGD CANCELLED. DISCUSSED WITH PT. PT VERBALIZED UNDERSTANDING. WILL CPOC.
[2017-04-08 01:53] VITALS: BP 130/56
--- NOTE | 2017-04-08 02:51 | NUR ---
NURSE ROUNDS 23:00 04/07/17 - PT LYING IN BED, AWAKE, ALERT, ORIENTED, HOB 35-40 DEGREES. DURING IV PUSH ADMINISTRATION OF PROTONIX, PTS IV INFILTRATED, THEREFORE PTS IVP PROTONIX AND IV ROCEPHIN WERE UNABLE TO BE GIVEN AT THIS TIME. BREE LUCIO RESITED PTS IV TO HIS RIGHT OUTER FOREARM. IVP PROTONIX GIVEN AT 01:45 04/08/17, THEN IV WAS FLUSHED, AND IV ROCEPHIN WAS INFUSED WITHOUT DIFFICULTY. I HAVE RETIMED THESE MEDICATIONS TO REFLECT THE LATEST ADMINISTRATIONS. PT IS NOW CURRENTLY RESTING COMFORTABLY, K-PAD IS WRAPPED AROUND PTS RLE ORDERED. PT DENIES ANY NEEDS. CONTINUE TO MONITOR CLOSELY.
[2017-04-08 04:16] VITALS: BP 143/66
[2017-04-08 05:37] LABS: BASOPHILS 0.7 % (0-2); EOSINOPHILS 7.1 % (0-7); HEMATOCRIT 25.4 % (42.0-54.0); HEMOGLOBIN 8.7 g/dL (13.5-17.5); IMMATURE GRANULOCYTES 0.2 % (0-5); LYMPHOCYTES 10.6 % (15-50); MCH 29.6 pg (26.0-34.0); MCHC 34.3 g/dL (31.0-37.0); MCV 86.4 fL (80.0-100.0); MEAN PLATELET VOLUME 9.1 fL (7.4-10.4); MONOCYTES 9.3 % (2-11); NEUTROPHILS 72.1 % (40-80); PLATELET COUNT 209 10x3/uL (130-400); RBC 2.94 10x6/uL (4.20-6.10); RDW 12.5 % (11.5-14.5); WBC 5.4 10x3/uL (4.8-10.8)
[2017-04-08 05:47] LABS: INR 1.26 (0.85-1.17); PROTIME 15.7 SECONDS (11.6-15.0)
[2017-04-08 05:56] LABS: ALBUMIN 2.8 g/dL (3.4-5.0); ANION GAP 17.9 mmol/L (8-16); BILIRUBIN - TOTAL 0.6 mg/dL (0.2-1.3); CALCIUM 8.8 mg/dL (8.5-10.1); CARBON DIOXIDE 22.1 mmol/L (21.0-32.0); CREATININE - SERUM 10.5 mg/dL (0.6-1.3); PROTEIN - SERUM 6.7 g/dL (6.4-8.2)
[2017-04-08 05:57] LABS: PHOSPHOROUS 9.6 mg/dL (2.5-4.9)
--- NOTE | 2017-04-08 07:33 | NUR ---
AM ROUNDS - PT IS IN BED AND AWAKE AT THIS TIME. NON SKID SOCKS ON. NO YELLOW BAND. MONITOR SHOWING SR, HR 86. RESERVE LEFT ARM, AVF. IV TO RIGHT FA, SL. BED AT LOWEST POSITION. CALL RAINES IN USE/REACH. SIDE RAILS UP X2. NO NEEDS AT THIS TIME. WILL CONTINUE TO MONITOR
[2017-04-08 08:46] VITALS: BP 141/61
[2017-04-08 11:59] VITALS: BP 145/64
--- NOTE | 2017-04-08 16:44 | NUR ---
PT IN BED WITH NO NEEDS AT THIS TIME. BED AT LOWEST POSITION. CALL RAINES IN USE/REACH. SIDE RAILS UP X2. WILL CONTINUE TO MONITOR
[2017-04-08 19:00] VITALS: BP 168/72
--- NOTE | 2017-04-08 19:41 | NUR ---
ALERT/AWAKE READING PAPER. DENIES ANY NEEDS. IV IN RT FA INTACT SL. LEFT AVF HAS POSITIVE BRUIT/THRILL. RT LOWER LEG ON KPAD. REDNESS ASSESSED BELOW LINES DRAWN. ORIENTED TO CALL LIGHT FOR ANY NEEDS.
[2017-04-09] VITALS: BP 167/70
--- NOTE | 2017-04-09 00:30 | NUR ---
STAFF ATTORNEY TAKING VS. DENIES ANY NEEDS.
--- NOTE | 2017-04-09 03:44 | NUR ---
RESTING ON RIGHT SIDE WITH EYES CLOSED. RR EVEN U/L. NO S/S OF DISCOMFORT. RIGHT LEG ON KPAD. CALL LIGHT IN REACH.
[2017-04-09 04:00] VITALS: BP 172/79
[2017-04-09 04:39] LABS: BASOPHILS 0.5 % (0-2); EOSINOPHILS 4.6 % (0-7); HEMATOCRIT 29.8 % (42.0-54.0); HEMOGLOBIN 10.1 g/dL (13.5-17.5); IMMATURE GRANULOCYTES 0.4 % (0-5); LYMPHOCYTES 8.7 % (15-50); MCH 29.3 pg (26.0-34.0); MCHC 33.9 g/dL (31.0-37.0); MCV 86.4 fL (80.0-100.0); MEAN PLATELET VOLUME 8.9 fL (7.4-10.4); MONOCYTES 9.6 % (2-11); NEUTROPHILS 76.2 % (40-80); PLATELET COUNT 179 10x3/uL (130-400); RBC 3.45 10x6/uL (4.20-6.10); WBC 5.6 10x3/uL (4.8-10.8)
[2017-04-09 04:53] LABS: ALBUMIN 2.9 g/dL (3.4-5.0); ANION GAP 18.8 mmol/L (8-16); BILIRUBIN - TOTAL 0.74 mg/dL (0.2-1.3); CALCIUM 9.2 mg/dL (8.5-10.1); CARBON DIOXIDE 24.5 mmol/L (21.0-32.0); CREATININE - SERUM 9.1 mg/dL (0.6-1.3); PHOSPHOROUS 7.7 mg/dL (2.5-4.9); POTASSIUM - SERUM 4.3 mmol/L (3.5-5.1); PROTEIN - SERUM 7.1 g/dL (6.4-8.2)
[2017-04-09 04:55] LABS: INR 1.27 (0.85-1.17); PROTIME 15.8 SECONDS (11.6-15.0)
[2017-04-09 08:00] VITALS: BP 160/74
--- NOTE | 2017-04-09 08:15 | NUR ---
AM ROUNDS - PT IS IN BED AND AWAKE AT THIS TIME. MONITOR SHOWING SR, HR 97. IV TO RIGHT FA, SL. LEFT AVF. PT IS A&O. K PAD TO RIGHT LEG. BED AT LOWEST POSITION. CALL RAINES IN USE/REACH. SIDE RAILS UP X2. NO NEEDS AT THIS TIME. WILL CONTINUE TO MONITOR
--- NOTE | 2017-04-09 19:28 | NUR ---
PT RESTING IN BED. AAO SITTING WITH HOB AT 45. PT VERBALIZES UNDERSTANDING ABOUT FLUID RESTRICTION. PT HAS CALL LIGHT IN REACH. BED LOW. PT DENIES ANY NEEDS. NO S/S OF DISTRESS. WILL CPOC
[2017-04-09 23:08] VITALS: BP 163/76
--- NOTE | 2017-04-10 00:37 | NUR ---
PT ASLEEP. LAYING ON RIGHT SIDE. RESPIRATIONS EVEN AND UNLABORED. NO S/S OF DISTRESS. WILL CPOC
[2017-04-10 01:46] VITALS: BP 155/69
--- NOTE | 2017-04-10 01:46 | NUR ---
PT ASLEEP LAYING ON LEFT SIDE. AROUSES TO VERBAL STIMULI. PT DENIES ANY NEEDS. NO S/S OF DISTRESS. WILL CPOC
[2017-04-10 05:34] LABS: ALBUMIN 2.8 g/dL (3.4-5.0); ANION GAP 15.6 mmol/L (8-16); BILIRUBIN - TOTAL 0.5 mg/dL (0.2-1.3); CALCIUM 8.9 mg/dL (8.5-10.1); CARBON DIOXIDE 23.3 mmol/L (21.0-32.0); CREATININE - SERUM 9.9 mg/dL (0.6-1.3); POTASSIUM - SERUM 3.9 mmol/L (3.5-5.1); PROTEIN - SERUM 6.3 g/dL (6.4-8.2)
[2017-04-10 05:56] VITALS: BP 154/66
[2017-04-10 08:00] VITALS: BP 167/82
--- NOTE | 2017-04-10 08:13 | NUR ---
DUE TO RETAINED BARIUM FROM UGI AND NO PREP WE WERE UNABLE TO PERFORM THE BE STUDY WITH AIR PER DR. DELATORRE. ANKITA RT(R)
[2017-04-10 12:00] VITALS: BP 154/72
[2017-04-10 16:00] VITALS: BP 167/73
--- NOTE | 2017-04-10 18:00 | NUR ---
ALERT AND ORIENTED X4. SITTING UP IN BED. DRINKING PREP FOR ABDOMINAL SCAN 04/11/17. KPAD ON RT LEG PER ORDER. DENIES SOB OR PAIN. SINUS RHTHYM ON TELEMETY. CONTINUE PLAN OF CARE AND SAFETY PRECAUTIONS.
[2017-04-10 20:25] VITALS: BP 142/65
[2017-04-11 00:51] VITALS: BP 134/61
[2017-04-11 05:13] LABS: BASOPHILS 0.6 % (0-2); EOSINOPHILS 7.2 % (0-7); HEMATOCRIT 28.7 % (42.0-54.0); HEMOGLOBIN 9.6 g/dL (13.5-17.5); IMMATURE GRANULOCYTES 0.2 % (0-5); MCH 29.4 pg (26.0-34.0); MCHC 33.4 g/dL (31.0-37.0); MCV 87.8 fL (80.0-100.0); MEAN PLATELET VOLUME 9.1 fL (7.4-10.4); MONOCYTES 9.5 % (2-11); NEUTROPHILS 70.5 % (40-80); PLATELET COUNT 186 10x3/uL (130-400); RBC 3.27 10x6/uL (4.20-6.10); WBC 5.2 10x3/uL (4.8-10.8)
[2017-04-11 05:19] VITALS: BP 117/50
--- NOTE | 2017-04-11 05:56 | NUR ---
PT COMPLETED HIS GOLYTELY PREPARATION BY 0100, HE RECEIVED HIS SCHEDULED ANTIBIOTICS AT 0200, & HE HAS BEEN SLEEPING THE REST OF THE SHIFT. PT DENIED ANY NEEDS. WILL CONT TO MONITOR.
[2017-04-11 08:21] VITALS: BP 131/68
--- NOTE | 2017-04-11 10:00 | NUR ---
ALERT AND ORIENTED X4. KUB SHOWS BARIUM IN ASCENDING COLON AND CECUM. UNABLE TO DO BARIUM ENEMA TODAY. PLAN TO DO TOMORROW. CALL TO INFORM. MALOU PLAN OF CARE AND SAFETY PRECAUTIONS.
[2017-04-11 12:09] LABS: % SATURATION 18 % (15-55); IRON 55 ug/dl (35-150); TOTAL IRON BIND CAPACITY 300 ug/dl (260-445); UNSAT IRON BIND CAPACITY 245 ug/dl (150-375)
[2017-04-11 15:58] VITALS: BP 169/79
[2017-04-11 19:32] VITALS: BP 149/71
--- NOTE | 2017-04-11 19:39 | NUR ---
PT AMBULATING AROUND ROOM. BREATHING EVEN AND UNLABORED. DENIES ANY PAIN OR NEEDS AT THIS TIME.
[2017-04-12] VITALS: BP 117/50
--- NOTE | 2017-04-12 02:51 | NUR ---
PT IN BED RESTING QUIETLY. DENIES ANY PAIN OR NEEDS AT THIS TIME. BED RAILS UP X2. BED IN LOW POSITION, CALL LIGHT WITHIN REACH. WILL CTM.
[2017-04-12 04:04] VITALS: BP 151/64
[2017-04-12 04:23] LABS: BASOPHILS 0.8 % (0-2); EOSINOPHILS 7.1 % (0-7); HEMATOCRIT 29.7 % (42.0-54.0); HEMOGLOBIN 9.9 g/dL (13.5-17.5); LYMPHOCYTES 13.3 % (15-50); MCH 29.4 pg (26.0-34.0); MCHC 33.3 g/dL (31.0-37.0); MCV 88.1 fL (80.0-100.0); MEAN PLATELET VOLUME 9.1 fL (7.4-10.4); MONOCYTES 9.3 % (2-11); NEUTROPHILS 69.5 % (40-80); PLATELET COUNT 178 10x3/uL (130-400); RBC 3.37 10x6/uL (4.20-6.10); RDW 13.3 % (11.5-14.5)
[2017-04-12 04:54] LABS: ALBUMIN 2.8 g/dL (3.4-5.0); ANION GAP 16.6 mmol/L (8-16); BILIRUBIN - TOTAL 0.5 mg/dL (0.2-1.3); CARBON DIOXIDE 25.1 mmol/L (21.0-32.0); CREATININE - SERUM 7.2 mg/dL (0.6-1.3); PHOSPHOROUS 6.2 mg/dL (2.5-4.9); POTASSIUM - SERUM 3.7 mmol/L (3.5-5.1); PROTEIN - SERUM 6.8 g/dL (6.4-8.2)
--- NOTE | 2017-04-12 06:41 | NUR ---
IV INFILTRATED. NEW IV STARTED. R LOWER FOREARM. 20G. SALINE LOCKED. 2 ATTEMPTS.
--- NOTE | 2017-04-12 07:26 | NUR ---
AM ROUNDING- RECEIVED REPORT FROM VARNISH INSPECTOR NURSE. PT IS CURRENTLY IN BATHROOM. PT COMES OUT AND STATES HE IS AWAITING TO HAVE A BARIUM ENEMA. I INFORMED PT THAT I WILL LOOK AT PTS CHART AND SEE WHAT PLAN OF CARE HE HAS TODAY. PT IS ALERT AND ORIENTED. UP AD ELLIS. ON ROOM AIR. ON MONITOR SHOWING ST, HR 104. IV SEEN TO RIGHT FOREARM THAT IS CURRENTLY SALINE LOCKED. RESERVE LEFT ARM FOR AVF. KPAD SEEN PLACED TO PTS RIGHT LOWER LEG AREA WHERE PT PLACED ON AFTER GETTING BACK IN BED. PT IS ON 1,000CC FLUID RESTRICTION AND IS AWARE OF THIS. NO FURTHER NEED AT THIS TIME. WILL CONTINUE TO MONITOR AND CONTINUE WITH PLAN OF CARE.
--- NOTE | 2017-04-12 07:48 | NUR ---
PT TO XRAY VIA WHEELCHAIR.
[2017-04-12 08:11] VITALS: BP 133/61
--- NOTE | 2017-04-12 08:25 | NUR ---
THE BARIUM ENEMA WAS NOT PERFORMED DUE TO THE FACT THAT PATIENT STILL HAS CONTRAST IN HIS COLON.
--- NOTE | 2017-04-12 08:53 | NUR ---
RECEIVED CALL FROM DR. ANDERS. DR. ANDERS STATES TO ORDER PT 4L OF GOLYTELY TO HELP SECRETE CONTRAST. DR. ANDERS STATES TO MAKE SURE PT ATLEAST DRINKS 2L BUT ORDER 4L AND ENCOURAGE IT TOLERATED.
--- NOTE | 2017-04-12 10:39 | NUR ---
Nutrition Follow Up: Chart reviewed. Pt is now on renal clear liquid diet. Prior to this pt was eating 100% meal avg on a renal diet. +BM 04/11/17. Wt stable. Meds and labs noted. Rec resuming renal diet as tolerated when medically feasible. RD following.
[2017-04-12 11:55] VITALS: BP 142/70
--- NOTE | 2017-04-12 12:49 | NUR ---
PT IS SITTING UP IN BED WITH EYES OPEN RESTING. PT IS CONTINUING AND IS BEING ENCOURAGED TO DRINK GOLYTELY. PT STATES HE HAS HAD APPROX 5 BMS THAT ARE CLEAR IN COLOR WITH BROWN RESIDUE. NO NEED AT THIS CURRENT TIME. WILL CONTINUE TO MONITOR.
--- NOTE | 2017-04-12 13:37 | NUR ---
PT HAS DRANK 4L OF GOLPomogatelLY ORDERED.
--- NOTE | 2017-04-12 16:16 | NUR ---
PT IS CURRENTLY SITTING UP IN BED WITH EYES OPEN RESTING. PT GIVEN SCHEDULED MEDICATION ORDERED. PT GIVEN CUP OF ICE REQUESTED. NO FURTHER NEED AT THIS TIME. WILL CONTINUE TO MONITOR.
--- NOTE | 2017-04-12 17:59 | NUR ---
I WAS CHECKING ON PT AND GATHERING I&O'S. PT SPOKE TO ME ABOUT HIS CONCERNS REGARDING BEING IN THE HOSPITAL AND HIM SITTING FOR A FEW DAYS HARDLY EATING AND DRINKING GOLYLETY TO GET RID OF CONTRAST THAT IS STILL IN HIS BODY. PT STATES "THEY COULD HAVE SENT ME HOME FOR A FEW DAYS AND I COULD HAVE DRANK GOLYLETY AT HOME AND THEN CAME BACK FOR THE BARIUM ENEMA". PT IS UPSET AND DOES NOT UNDERSTAND WHY "TIME IS BEING WASTED". SHARDA, PAINT ROLLER COVER MACHINE SETTER IS PAGING DR. GUEVARA NOW. WILL AWAIT CALLBACK AND VOICE CONCERNS PER PT TO DR. GUEVARA.
--- NOTE | 2017-04-12 18:14 | NUR ---
RECEIVED CALLBACK FROM DR. GUEVARA. VOICED CONCERNS TO DR. GUEVARA PER PT. DR. GUEVARA STATES SHE WILL SEE PT LUIZA. WILL RELAY THIS TO PT.
[2017-04-12 19:00] VITALS: BP 170/76
--- NOTE | 2017-04-12 19:42 | NUR ---
PT IN BED AT BEDSIDE. DENIES NEEDS AT THIS TIME.
[2017-04-13] VITALS: BP 143/71
[2017-04-13 04:00] VITALS: BP 164/83
--- NOTE | 2017-04-13 05:11 | NUR ---
PT AWAKE, ALERT, ORIENTED, LYING IN BED LOOKING AT TV. PT DENIES ANY NEEDS, STATES HE IS NPO FOR UPCOMING GI PROCEDURE LATER THIS AM. PT TO CALL WITH ANY NEEDS. CONTINUE TO MONITOR CLOSELY.
[2017-04-13 05:47] LABS: BASOPHILS 1.2 % (0-2); EOSINOPHILS 6.4 % (0-7); HEMATOCRIT 31.6 % (42.0-54.0); HEMOGLOBIN 10.7 g/dL (13.5-17.5); IMMATURE GRANULOCYTES 0.2 % (0-5); MCHC 33.9 g/dL (31.0-37.0); MCV 88.5 fL (80.0-100.0); MEAN PLATELET VOLUME 9.3 fL (7.4-10.4); MONOCYTES 8.7 % (2-11); NEUTROPHILS 69.5 % (40-80); RBC 3.57 10x6/uL (4.20-6.10); RDW 13.3 % (11.5-14.5); WBC 4.8 10x3/uL (4.8-10.8)
[2017-04-13 05:49] LABS: PLATELET COUNT 222 10x3/uL (130-400)
--- NOTE | 2017-04-13 05:59 | NUR ---
PT IN BED WATCHING TELEVISION. INFORMED PT THAT HE IS NPO FOR HIS PROCEDURE. PT SIGNED CONSENTS. DENIES NEEDS AT THIS TIME.
[2017-04-13 06:08] LABS: ANION GAP 17.4 mmol/L (8-16); BILIRUBIN - TOTAL 0.5 mg/dL (0.2-1.3); CALCIUM 9.2 mg/dL (8.5-10.1); CARBON DIOXIDE 25.4 mmol/L (21.0-32.0); CREATININE - SERUM 7.9 mg/dL (0.6-1.3); POTASSIUM - SERUM 3.8 mmol/L (3.5-5.1); PROTEIN - SERUM 7.3 g/dL (6.4-8.2)
[2017-04-13 06:38] LABS: INR 1.22 (0.85-1.17); PROTIME 15.3 SECONDS (11.6-15.0)
[2017-04-13 07:45] VITALS: BP 117/79
--- NOTE | 2017-04-13 07:45 | NUR ---
AM ROUNDING- RECEIVED REPORT FROM DELINQUENT TAX COLLECTOR ASSISTANT NURSE HEATHER. PT IS CURRENTLY LAYING IN BED ON RIGHT SIDE WITH EYES OPEN RESTING. PT IS NPO ORDERED FOR EGD WITH TIVA THIS MORNING. CONSENTS ARE SIGNED AND IN CHART. JEREMY IN DIALYSIS IS AWARE THAT PT CANNOT GO TO DIALYSIS UNTIL PT HAS EGD DONE (SPOKE WITH JEREMY HE WAS PASSING THROUGH UNIT). ON ROOM AIR. ON MONITOR SHOWING SR, HR 80. IV SEEN TO RIGHT FOREARM THAT IS CURRENTLY SALINE LOCKED. RESERVE LEFT ARM FOR AVF. NO NEED AT THIS CURRENT TIME. PT STATES HIS ARM IS SORE FROM WHERE HE HAD PREVIOUS IV. IV IS NOW OUT. WILL CONTINUE TO MONITOR AND CONTINUE WITH PLAN OF CARE.
--- NOTE | 2017-04-13 09:27 | NUR ---
AM MEDICATION (EPOGEN VIA SUB-Q) GIVEN. PT IS NPO SO PO MEDICATIONS WERE NOT GIVEN. PT IS AWAITING COLONOSCOPY THIS AM. WILL AWAIT FOR GI TO CALL TO PRE-OP PT. WILL CONTINUE TO MONITOR.
--- NOTE | 2017-04-13 11:09 | NUR ---
I WAS WALKING INTO HALLWAY, I NOTICED GI LAB WAS GETTING PT. I INFORMED GI THAT I WAS NOT CALLED TO GIVE PT PRE-OP MEDICATIONS. GI STATES HE DIDN'T KNOW THEY DIDN'T CALL ME. THIS NURSE WENT AND GOT PRE-OP MEDICATIONS ORDERED AND GAVE THEM TO PT. IV FLUIDS HUNG AND TUBING PRIMED. THIS NURSE INFORMED GI THAT EKG HAS NOT BEEN DONE ON PT YET. PT TO GI LAB VIA BED.
--- NOTE | 2017-04-13 11:37 | NUR ---
ABLATED RECTAL POLYP.
--- NOTE | 2017-04-13 11:43 | NUR ---
DR. GUEVARA ADDED AN EGD .
--- NOTE | 2017-04-13 12:10 | NUR ---
RECEIVED REPORT FROM JOSE LUIS VILLALOBOS RN IN GI LAB. KHADIJAH AMAYA GAVE REPORT. AWAITING PT ARRIVAL TO FLOOR.
--- NOTE | 2017-04-13 12:17 | NUR ---
JEREMY WITH DIALYSIS CALLED AND STATES PT WILL HAVE DIALYSIS TOMORROW.
--- NOTE | 2017-04-13 13:02 | NUR ---
PT BACK FROM PROCEDURE VIA BED. PT IS ALERT AND ORIENTED. PT IS ANXIOUSLY AWAITING TO BE D/C.
[2017-04-13 16:07] VITALS: BP 159/82
[2017-04-13 19:00] VITALS: BP 158/74
--- NOTE | 2017-04-13 19:40 | NUR ---
PT IN BED WITH HOB UP FOR COMFORT. WATCHING TV. NO O2. RIGHT FA SL. TELEMETRY. RESERVE LEFT ARM. UP ADLIB. RIGHT LEG CELLULITIS. BED IN LOWEST POSITION AND CALL LIGHT WITHIN REACH.
--- NOTE | 2017-04-13 19:48 | NUR ---
PT IS CURRENTLY LAYING IN BED ON RIGHT SIDE WITH EYES OPEN RESTING. PT DENIES ANY NEED AT THIS TIME.
--- NOTE | 2017-04-13 23:50 | NUR ---
PT IN BED WITH HOB UP FOR COMFORT. WATCHING TV. BED IN LOWEST POSITION AND CALL LIGHT WITHIN REACH.
[2017-04-14] VITALS: BP 146/64
--- NOTE | 2017-04-14 02:49 | NUR ---
PT LYING IN BED WITH HOB UP FOR COMFORT. EYES CLOSED. CHEST RISING AND FALLING. BED IN LOWEST POSITION AND CALL LIGHT WITHIN REACH.
--- NOTE | 2017-04-14 05:18 | NUR ---
CALL LIGHT IN REACH, WILL CONTINUE WITH PLAN OF CARE.
[2017-04-14 05:24] VITALS: BP 151/76
--- NOTE | 2017-04-14 06:00 | NUR ---
PT IN BED WITH HOB UP FOR COMFORT. WATCHING TV. BED IN LOWEST POSITION AND CALL LIGHT WITHIN REACH.
[2017-04-14 06:01] LABS: BASOPHILS 1.2 % (0-2); EOSINOPHILS 4.8 % (0-7); HEMATOCRIT 30.9 % (42.0-54.0); HEMOGLOBIN 10.2 g/dL (13.5-17.5); IMMATURE GRANULOCYTES 0.2 % (0-5); MCH 29.2 pg (26.0-34.0); MCV 88.5 fL (80.0-100.0); MEAN PLATELET VOLUME 9.3 fL (7.4-10.4); MONOCYTES 10.1 % (2-11); NEUTROPHILS 69.7 % (40-80); PLATELET COUNT 189 10x3/uL (130-400); RBC 3.49 10x6/uL (4.20-6.10); RDW 13.5 % (11.5-14.5); WBC 4.8 10x3/uL (4.8-10.8)
[2017-04-14 06:18] LABS: ANION GAP 18.6 mmol/L (8-16); CALCIUM 8.7 mg/dL (8.5-10.1); CARBON DIOXIDE 24.3 mmol/L (21.0-32.0); CREATININE - SERUM 8.7 mg/dL (0.6-1.3); PHOSPHOROUS 6.3 mg/dL (2.5-4.9); POTASSIUM - SERUM 3.9 mmol/L (3.5-5.1)
--- NOTE | 2017-04-14 07:46 | NUR ---
SITTING UP IN BED EATING BREAKFAST. DENIES NEEDS EXCEPT WANTING TO GO HOME. AT THIS TIME THERE ARE NO D/C ORDERS. RIGHT FA WITH SALINE LOCK SEEN. ON HEART MONITOR SHOWING SR, HR 79. RESERVE LEFT ARM WITH AVF. WILLMONITOR.
[2017-04-14 08:07] VITALS: BP 160/76
--- NOTE | 2017-04-14 08:48 | NUR ---
INFORMED PATIENT THAT DIALYSIS IS READY FOR THE PATIENT AND HE SAYS THAT HE WILL NOT HAVE IT DONE UNTIL HE IS HOME. THIS IS CALLED TO TOBIN IN DIALYSIS.
[2017-04-14] MEDS ORDERED: KEFLEX250 MG PO (09:37)
[2017-04-14] MEDS ORDERED: LONITEN2.5 MG PO (09:41)
[2017-04-14] MEDS ORDERED: PROTONIX40 MG PO (09:41)
--- NOTE | 2017-04-14 10:58 | NUR ---
SALINE LOCK REMOVED WITH CATH TIP INTACT.
--- NOTE | 2017-04-14 11:43 | NUR ---
VERBAL AND WRITTEN DISCHARGE INSTRUCTIONS GIVEN TO PATIENT AND . DISCHARGED HOME VIA WHEELCHAIR.
--- NOTE | 2017-04-14 16:50 | NUR ---
Patient Name: FLO KAMARA Encounter No: [id number] : 1970 Primary Insurance: MEDICARE A & B Anticipated DC Date: 04-14-2017 Planned Disposition: Home DCP follow-up note: CM MET WITH PT IN ROOM TO DISCUSS DISCHARGE NEEDS AND PLANNING. CM DISCUSSED AVAILABILITY OF HOME HEALTH, REHAB SERVICES AND MEDICAL EQUIPMENT. PT DENIES DISCHARGE NEEDS. SPOUSE TO TRANSPORT HOME AT DISCHARGE. IMPORTANT MESSAGE FROM MEDICARE PROVIDED AND EXPLAINED. Michael Wong, CASE MANAGEMENT
--- NOTE | 2017-04-15 07:25 | DS ---
PATIENT:FLO CAT :[birth year] MEDICAL RECORD: [id number] DISCHARGE SUMMARY ADMISSION DATE: 04/02/17 DISCHARGE DATE: 04/14/17 HISTORY OF PRESENT ILLNESS: Mr. Cat is a 46-year-old white male with end-stage renal disease, on home hemodialysis. He has been stable with no hospitalization, seen by me monthly and has been stable. Admitted with the development of increasing abdominal girth and shortness of breath and found to have ascites on examination in the Emergency Room. I admitted for the above. HOSPITAL COURSE: The patient was found to have multiple problems during his hospitalization. On initial examination, he was found to have cellulitis of his right calf and Doppler had been negative as an outpatient CT revealed no evidence of abscess. He was begun on Rocephin therapy and received a full course of that and will be discharged on Keflex with improvement in the leg. His ascites was a new onset, had a paracentesis done of 17 liters and this revealed primarily a transudate with no infectious etiology noted, cultures were negative. He had an echocardiogram done that revealed possible severe valvular disease. Consequently, he was taken to clinical laboratory aides teacher by Dr. Rivas with the finding of severe aortic stenosis, mitral regurg, pulmonary artery hypertension, and 80% LAD lesion. Seen by Dr. Bermeo who agreed that he would need surgery when his overall condition improved. During this time, he required intermittent transfusion, had positive stools for blood, eventually underwent endoscopy by Dr. Delgado after CT abdomen was negative and small bowel follow-through was negative. Colonoscopy revealed some rectal polyps and hemorrhoids, otherwise negative. His EGD revealed gastritis, otherwise negative. He was treated with intensive PPI and antihistamine antagonist therapy, and his hemoglobin was stable at the time of discharge. At the time of discharge, he was to resume his home dialysis and follow up with Dr. Bermeo in the office. DISCHARGE DIAGNOSES: 1. Severe valvular heart disease with chronic aortic stenosis, mitral regurgitation. 2. Coronary artery disease with 80% LAD lesion, on catheterization. 3. Pulmonary artery hypertension resulting in recurrent ascites. 4. Cellulitis, right leg, resolved on antibiotic therapy. 5. Gastrointestinal bleed due to chronic gastritis, improved. 6. End-stage renal disease, chronic dialysis. 7. Chronic smoking. 8. Erythropoietin-dependent anemia. PLAN: The patient will be discharged today. He will see Dr. Bermeo in 1-2 weeks. He will see me in 2-3 weeks. We will plan his surgery sometime in April or May. He will resume his home hemodialysis schedule. He will refrain from smoking. DISCHARGE MEDICATIONS: Will be Nephro-Josefina 1 daily, Cozaar 25 b.i.d., minoxidil 2.5 b.i.d., Protonix 40 b.i.d. p.o., Renvela 3200 q.i.d., Colace 100 b.i.d., MiraLax p.r.n., clonidine 0.2 t.i.d., metoprolol 25 daily, nicotine patch 14 mg daily, and Epogen 6000 on a t.i.w. basis. TRANSINT:[id number] Voice Confirmation ID: [id number] DOCUMENT ID: [id number] DISCHARGE SUMMARY REPORT [id number] FLO CAT, ERICK FLYNN at 0725 CC: [id number] DICTATION DATE: 04/14/17808 CRATE OPENER: 04/14/17 09 DIS IN 04/14/17 [id number] [place] [id number]
--- NOTE | 2017-04-15 16:56 | EC ---
PATIENT:FLO KAMARA DATE OF SERVICE: 04/02/17 SEX: M MEDICAL RECORD: [id number] DATE OF : 72 LOCATION:D. D.213 AGE OF PATIENT: 46 ADMISSION DATE: 04/02/17 REFERRING PHYSICIAN: INTERPRETING PHYSICIAN: NEEL RIVAS MD ECHOCARDIOGRAM REPORT ECHO CHARGES 4 ECHO COMPLETE CLINICAL DIAGNOSIS: MURMUR,ACITES ON MINOXIDIL ECHOCARDIOGRAPHIC MEASUREMENTS (adult normal given) AC root (d.<3.7cm) 3.7 cm LV Septum d (<1.2 cm> 1.4 cm Valve Excursion 1.6 cm LV Septum (systole) 1.6 cm Left Atria (s.<4.0cm> 5.4 cm LVPW d(<1.2cm) 1.4 cm RV (d.<2.3cm) 7.4 cm LVPW (sytole) 1.8 cm LV diastole(<5.6CM) 6.6 cm MV E-F(>70mm/sec) cm LV systole 4.6 cm LVOT Diameter 1.4 cm MV exc.(>10mm) 1.7 cm Est.ejection fraction (50-75%) % Pericardial Effusion N DOPPLER: LVIT cm/sec A 160 cm/sec E 157 cm/sec LA cm/sec RVSP 77 mmHg LVOT 149 cm/sec AOP1/2T m/s Asc. Ao 335 cm/sec RVOT 84 cm/sec RA cm/sec PA 189 cm/sec AV Gradient Peak 44.82mmHg AV Mean 23.81mmHg AV Area 0.80 cm MV Gradient Peak 16.92mmHg MV Mean 7.18 mmHg MV Area cm COMMENTS: Ware Cleaner: 2 KITTY CORDON Diesel Engine Specialist: 1 Dr. Rivas TAPE# PACS DATE OF SERVICE: 04/03/2017 Echocardiogram FINDINGS: 1. Left ventricular chamber size is dilated. Left ventricular systolic function is preserved. Overall ejection fraction estimated at 50%. 2. Left atrium, right atrium, and right ventricular chamber sizes are moderately dilated. Left atrium measures 5.4 cm. 3. Valvular structures: Aortic valve demonstrates arhbiiru-gs-ryppvo aortic ECHOCARDIOGRAM REPORT [id number] FLO KAMARA stenosis, valve area calculates to 0.8 cm-squared and there is a gradient of 45 mm across the valve. The mitral valve as well is stenotic with a gradient of 17 mm across the mitral valve. Both valves are heavily calcified. 4. Doppler interrogation elsewise reveals mild mitral regurgitation, severe tricuspid regurgitation, no other valvular insufficiency or stenosis. Pulmonary systolic pressure is markedly elevated, estimated at 77 mmHg. 5. No evidence of pericardial effusion or left ventricular thrombus. TRANSINT:[id number] Voice Confirmation ID: [id number] DOCUMENT ID: [id number] 04/11/2017 Edited to correct date of service, dm. NEEL RIVAS MD at 1656 CC: [id number] DICTATION DATE: 04/04/17 0924 BRUSH MATERIAL PREPARER: 04/04/17 1136 DIS IN 04/14/17 [facility] [address] [place] [address]
--- NOTE | 2017-05-09 09:15 | EC ---
PATIENT:FLO KAMARA DATE OF SERVICE: 04/02/17 SEX: M MEDICAL RECORD: [id number] DATE OF : 72 LOCATION:D. D.213 AGE OF PATIENT: 46 ADMISSION DATE: 04/02/17 REFERRING PHYSICIAN: INTERPRETING PHYSICIAN: PARUL CHAN MD ECHOCARDIOGRAM REPORT ECHO CHARGES 4 ECHO COMPLETE CLINICAL DIAGNOSIS: MURMUR,ACITES ON MINOXIDIL ECHOCARDIOGRAPHIC MEASUREMENTS (adult normal given) AC root (d.<3.7cm) 3.9 cm LV Septum d (<1.2 cm> 3.2 cm Valve Excursion 0.8 cm LV Septum (systole) 3.7 cm Left Atria (s.<4.0cm> 5.4 cm LVPW d(<1.2cm) 2.1 cm RV (d.<2.3cm) 3.9 cm LVPW (sytole) 3.1 cm LV diastole(<5.6CM) 5.5 cm MV E-F(>70mm/sec) cm LV systole 2.8 cm LVOT Diameter 2.1 cm MV exc.(>10mm) 1.7 cm Est.ejection fraction (50-75%) % Pericardial Effusion N DOPPLER: LVIT cm/sec A 181 cm/sec E 230 cm/sec LA cm/sec RVSP 71.0 mmHg LVOT 109 cm/sec AOP1/2T m/s Asc. Ao 355 cm/sec RVOT 74.0 cm/sec RA cm/sec PA 167 cm/sec AV Gradient Peak 51.0 mmHg AV Mean 27.3 mmHg AV Area 1.1 cm MV Gradient Peak 22.0 mmHg MV Mean 9.8 mmHg MV Area 1.5 cm COMMENTS: Stove Cleaner: Shade STILLOE Aircraft Air Conditioning Mechanic: Valentine Chan TAPE# PACS DATE OF SERVICE: 04/13/2017 PROCEDURE: Transthoracic echocardiogram. FINDINGS: 1. Left ventricle shows severe concentric left ventricular hypertrophy. Inflow characteristics show an early restrictive pattern. The overall ejection fraction is 55%. There are no distinct regional wall motion abnormalities. 2. The left atrium is severely dilated. 3. The tricuspid valve is shown to have qogtpfbl-ym-tnxgya tricuspid ECHOCARDIOGRAM REPORT [id number] FLO KAMARA regurgitation. Right ventricular systolic pressures are estimated at 70-75 mmHg. 4. The aortic valve is trileaflet and heavy thickening seen on all leaflets. There is restrictive opening. There is an elevated pressure gradient and the valve surface area appears to be in the 1 to 1.1 cm-squared range. 5. The mitral valve is shown to be thickened with inflow characteristics across the valve demonstrating elevated pressures; however, the pressure half-time places the valve area at 1.9 to 2 cm-squared indicating ytjv-om-ximexoob mitral stenosis. There is no pericardial effusion. There is mild pulmonic insufficiency. CONCLUSIONS: In comparison to the previous study, the patient has lower pulmonary pressures and the pressure half-time across the mitral valve demonstrates at this time that is more in the moderate than in the severe range of mitral stenosis and a valve surface area of 1.9 to 2.0 cm-squared. The aortic stenosis appears to be severe in the 1.1 cm-squared, peak gradient of 51 mmHg. The patient does have severe concentric left ventricular hypertrophy that appears to be in the range of restrictive physiology with preserved LV systolic function. TRANSINT:[id number] Voice Confirmation ID: [id number] DOCUMENT ID: [id number] 04/20/2017 Edited to correct date of service, dm. PARUL CHAN MD at 0915 CC: [id number] DICTATION DATE: 04/14/17 0950 BOOK CUTTER: 04/14/17 1009 DIS IN 04/14/17 [facility] [address] [place] [address]
--- NOTE | 2017-06-04 08:18 | OP ---
PATIENT NAME: FLO KAMARA MEDICAL RECORD: [id number] :72 LOCATION:D. D.2136 ADMISSION DATE:04/02/17 SURGEON: PARUL CHAN MD DATE OF OPERATION: 04/07/2017 PROCEDURE: Left and right heart catheterization. PROCEDURE IN DETAIL: The patient was brought into cardiac catheterization lab in stable condition. Both groins were sterilely prepped and draped. The patient had a 7-Bahamian sheath placed in the right common femoral vein and a 5-Bahamian sheath placed in the right common femoral artery, both using modified Seldinger technique without difficulties. The patient then had an S-shaped balloon tipped [place]-Lakshmi catheter utilized to get into the pulmonary artery, placed in a wedge position where we were able to get sats and simultaneous measurements from the wedge position and the left ventricle. We were then further able to gather saturations across the pulmonary vasculature. We were able to do a thermodilution cardiac output as well as selective angiography in the left coronary system and the right coronary system and the left ventricular cavity. FINDINGS: 1. Left main has mild calcified plaquing. 2. The LAD has a mid 80% stenosis with moderate diffuse calcification. 3. The circumflex is a nondominant vessel and normal with mild calcified plaquing. 4. The RCA is a large, dominant vessel with mid 30% stenosis. 5. Hemodynamics: The patient's saturations showed a PA sat of 73.7% and RV sat of 73.9% and mixed venous sat in the right atrium was 77.2%. 6. The pulmonary pressures showed a PA systolic pressure of 99, PA diastolic pressure of 23, and RV systolic pressure of 93 and diastolic of 21, and RA pressure of 23/25 and mean of 22. The left ventricular pressures were 223 systolic and 27 diastolic. Pulmonary capillary wedge pressure was, mean of 26. Peripheral vascular resistance was 157.2. Systemic vascular resistance was 574. 7. Aortic valve gradient was 75 mmHg with a calculated valve area of 1.1 cm-squared. 8. The mitral valve area calculated at 1.2 cm-squared. 9. The patient's cardiac output was 11 liters per minute; however, the flow signature was blunted and may be because of significant tricuspid regurgitation. 10. Left ventricular ejection fraction was hyperdynamic at 65% to 70%. IMPRESSION: 1. The patient has multivalvular heart disease with mitral stenosis that is severe and aortic stenosis that is severe. 2. The patient has severe stenosis in the proximal LAD at 80%. 3. The patient has severe pulmonary hypertension and evidence of volume overload as well as contribution from aortic stenosis and mitral stenosis into the pulmonary hypertension. RECOMMENDATIONS: Coronary artery bypass grafting, and mitral valve and aortic valve replacement surgically. TRANSINT:[id number] Voice Confirmation ID: [id number] DOCUMENT ID: [id number] OPERATIVE REPORT [id number] FLO KAMARA TROY R MD at 0818 CC: [id number] DICTATION DATE: 06/01/17 0954 PANEL MONITOR: 06/01/17 1454 DIS IN 04/14/17 [place] [id number] [place] [address]
== END 2017-04-14 11:43 | disposition home or self-care (01) | DRG 286 ==
LOC: D.ER 14:18 → D.M2 18:48
PROVIDERS: General Practice; Internal Medicine Cardiovascular Disease; Internal Medicine Gastroenterology; Internal Medicine Nephrology; Nurse Practitioner Acute Care; ADMIT Internal Medicine
PROC: 5A1D70Z Performance of Urinary Filtration, Intermittent, Less than 6 Hours Per Day (ICD-10-PCS; 2017-04-04)
PROC: 0W9G3ZZ Drainage of Peritoneal Cavity, Percutaneous Approach (ICD-10-PCS; principal; 2017-04-04 11:30)
PROC: B2111ZZ Fluoroscopy of Multiple Coronary Arteries using Low Osmolar Contrast (ICD-10-PCS; 2017-04-07)
PROC: B2151ZZ Fluoroscopy of Left Heart using Low Osmolar Contrast (ICD-10-PCS; 2017-04-07)
PROC: 4A023N8 Measurement of Cardiac Sampling and Pressure, Bilateral, Percutaneous Approach (ICD-10-PCS; 2017-04-07 10:30)
PROC: 0DBP8ZZ Excision of Rectum, Via Natural or Artificial Opening Endoscopic (ICD-10-PCS; 2017-04-13)
PROC: 0DB78ZX Excision of Stomach, Pylorus, Via Natural or Artificial Opening Endoscopic, Diagnostic (ICD-10-PCS; 2017-04-13)
DX: I13.2 Hypertensive heart and chronic kidney disease with heart failure and with stage 5 chronic kidney disease, or end stage renal disease (principal); N18.6 End stage renal disease; K29.51 Unspecified chronic gastritis with bleeding; L03.115 Cellulitis of right lower limb; D62 Acute posthemorrhagic anemia; N25.81 Secondary hyperparathyroidism of renal origin; E87.1 Hypo-osmolality and hyponatremia; R18.8 Other ascites; I50.812 Chronic right heart failure; Z99.2 Dependence on renal dialysis; E83.39 Other disorders of phosphorus metabolism; E87.5 Hyperkalemia; I27.20 Pulmonary hypertension, unspecified; R16.1 Splenomegaly, not elsewhere classified; I08.0 Rheumatic disorders of both mitral and aortic valves; R16.2 Hepatomegaly with splenomegaly, not elsewhere classified; D50.9 Iron deficiency anemia, unspecified; K59.00 Constipation, unspecified; I25.10 Atherosclerotic heart disease of native coronary artery without angina pectoris; K62.1 Rectal polyp; K25.9 Gastric ulcer, unspecified as acute or chronic, without hemorrhage or perforation; K21.0 Gastro-esophageal reflux disease with esophagitis; K29.80 Duodenitis without bleeding; K57.90 Diverticulosis of intestine, part unspecified, without perforation or abscess without bleeding; K64.8 Other hemorrhoids; K64.4 Residual hemorrhoidal skin tags; Z72.0 Tobacco use

== ENCOUNTER 2017-05-04 08:00 | Outpatient (CLI) | payer MEDICARE, OTHER ==
[2017-04-05 10:36] VITALS: BMI 31.8
[~2017-05-04 08:00] MED LIST changes: +FERRIC CITRATE210 MG PO; +KEFLEX250 MG PO; +LONITEN10 MG PO; +LONITEN2.5 MG PO; +LOPRESSOR25 MG PO; +NEPHRO-VITE RX1 TAB PO; +NORMODYNE / TR200 MG PO; +PEPCID20 MG PO; +PROTONIX40 MG PO; +SENSIPAR90 MG PO
== END 2017-05-04 23:59 | disposition home or self-care (01) ==
LOC: D.OPS 08:00 → D.CT 10:00 → EDSTATUS 10:00 → D.OPS 11:30
DX: I35.0 Nonrheumatic aortic (valve) stenosis (principal); Z01.810 Encounter for preprocedural cardiovascular examination; Z01.811 Encounter for preprocedural respiratory examination; Z01.812 Encounter for preprocedural laboratory examination; Z53.9 Procedure and treatment not carried out, unspecified reason

== ENCOUNTER 2017-05-27 09:46 | Day surgery (SDC) | payer MEDICARE, OTHER ==
[~2017-05-27] VITALS: Ht 190.5 cm; Wt 113.6 kg
[2017-05-27 11:40] LABS: HEMATOCRIT 30.7 % (42.0-54.0); HEMOGLOBIN 10.5 g/dL (13.5-17.5); MCH 29.3 pg (26.0-34.0); MCHC 34.2 g/dL (31.0-37.0); MCV 85.8 fL (80.0-100.0); MEAN PLATELET VOLUME 9.4 fL (7.4-10.4); RBC 3.58 10x6/uL (4.20-6.10); RDW 13.7 % (11.5-14.5); WBC 4.3 10x3/uL (4.8-10.8)
[2017-05-27 11:51] LABS: ANION GAP 19.7 mmol/L (8-16); CALCIUM 8.7 mg/dL (8.5-10.1); CARBON DIOXIDE 25.8 mmol/L (21.0-32.0); CREATININE - SERUM 9.7 mg/dL (0.6-1.3); POTASSIUM - SERUM 4.5 mmol/L (3.5-5.1)
[2017-05-27] MEDS ORDERED: AMOXIL875 MG PO (11:57)
[2017-05-27 12:03] VITALS: BP 117/61; Ht 190.5 cm; Wt 113.6 kg
--- NOTE | 2017-05-27 14:51 | NUR ---
1430--IV DC'D, PT UP TO DRESS AT THIS TIME. NATALYA LUCIO 1450--DISCHARGE INSTRUCTIONS GIVEN, PT VERBALIZES UNDERSTANDING. PT OFF UNIT VIA WC. NATALYA LUCIO
--- NOTE | 2017-05-31 12:15 | TEE ---
PATIENT:FLO KAMARA MEDICAL RECORD: [id number] [facility] AGE OF PATIENT: 46 ADMISSION DATE: 05/27/17 SEX: M REFERRING PHYSICIAN: INTERPRETING PHYSICIAN: NEEL RIVAS MD TRANSESOPHAGEAL ECHOCARDIOGRAM CIARRA CHARGE Y INDICATIONS: ASSESS MITRAL AND AORTIC STENOSIS PREMEDICATIONS: PATIENT'S RESPONSE PROCEDURE DOPPLER MEASUREMENTS: LVIT LA PA RA LVOT RVOT Asc. Ao AV Gradient Peak AV Mean AV Area MV Gradient Peak MV Mean MV Area INTERPRETATION: Doppler: 2-D: SEVERE /MS COLOR FLOW DOPPLER NORMAL SALINE STUDY: MISCELLANOUS: DIAGNOSIS: PLAN: Sliver Handler:1 Dr. Rivas Baggage Checker: Jad CORDON COMMENTS: YAQUELIN PATIENT DATE OF SERVICE: 05/27/2017 PROCEDURE: Transesophageal echo evaluation of valvular structures. FINDINGS: 1. Left ventricular chamber size is within normal limits. Left ventricular systolic function is normal. Overall ejection fraction estimated at 55%. 2. Left atrium, right atrium, and right ventricle chamber size is mild to moderately dilated. TRANSESOPHAGEAL ECHOCARDIOGRAM REPORT [id number] FLO KAMARA 3. Valvular structures: Aortic valve demonstrates severe calcific aortic stenosis. The mitral valve as well demonstrates severe calcific mitral stenosis. The remaining valvular structures have normal structure and motion. 4. No evidence of pericardial effusion or left ventricular thrombus. TRANSINT:[id number] Voice Confirmation ID: [id number] DOCUMENT ID: [id number] at 1215 CC: [id number] DICTATION DATE: 05/27/17 1420 TEACHING SUPERVISOR: 05/28/17 0818 [facility] 05/27/17 [place] [id number]
--- NOTE | 2017-06-05 12:48 | OP ---
PATIENT NAME: FLO KAMARA MEDICAL RECORD: [id number] :72 LOCATION:[facility] ADMISSION DATE: SURGEON: VISHNU BERMEO MD DATE OF OPERATION: 05/27/2017 SURGEON: Vishnu Bermeo MD ANESTHESIA: General endotracheal, Dr. Quiroz. OPERATION PERFORMED: Transesophageal echo. PREOPERATIVE DIAGNOSES: Mitral and aortic valvular stenosis. POSTOPERATIVE DIAGNOSES: Mitral and aortic valvular stenosis. INDICATION FOR OPERATION: Mitral stenosis, aortic stenosis. FINDINGS AT OPERATION: The aortic valve was severely sclerotic and stenotic. The mitral valve was severely stenotic with mild mitral regurgitation. The tricuspid valve was thickened, but normal movement and no stenosis. The Pulmonary valve has trace stenosis. ESTIMATED BLOOD LOSS: None. DESCRIPTION OF PROCEDURE: After informed consent, adequate preoperative medication evaluation, the patient was brought to the operating room, placed on the table in the supine position. After induction of general anesthesia and application of appropriate monitoring devices, the patient underwent transesophageal echo by Dr. Quiroz interpreted by me at the time of the procedure. The director supply will review the recordings. The patient has severe aortic stenosis and severe mitral stenosis that will need valve replacements. The patient tolerated the procedure well and was transferred to the postanesthesia recovery in satisfactory condition. TRANSINT:[id number] Voice Confirmation ID: [id number] DOCUMENT ID: [id number] VISHNU BERMEO MD at 1248 CC: [id number] DICTATION DATE: 05/27/17 1322 GRAB HOOKER: 05/27/[address] [facility] 05/27/[address] [address]
== END 2017-05-27 14:50 | disposition home or self-care (01) ==
LOC: D.OPS 09:46 → D.CT 10:30 → D.OPS 10:30
PROVIDERS: Internal Medicine Cardiovascular Disease
DX: I35.0 Nonrheumatic aortic (valve) stenosis (principal); I05.2 Rheumatic mitral stenosis with insufficiency; F17.200 Nicotine dependence, unspecified, uncomplicated; I12.0 Hypertensive chronic kidney disease with stage 5 chronic kidney disease or end stage renal disease; N18.6 End stage renal disease; K21.9 Gastro-esophageal reflux disease without esophagitis; J44.9 Chronic obstructive pulmonary disease, unspecified; Z01.812 Encounter for preprocedural laboratory examination

== ENCOUNTER 2017-06-02 12:30 | Inpatient (IN) | payer MEDICARE, OTHER ==
[~2017-06-02] VITALS: Ht 190.5 cm; Wt 104.5 kg
[~2017-06-02 12:30] MED LIST changes: +AMOXIL875 MG PO
[2017-06-02 13:16] LABS: BASOPHILS 0.9 % (0-2); EOSINOPHILS 2.6 % (0-7); HEMOGLOBIN 9.4 g/dL (13.5-17.5); IMMATURE GRANULOCYTES 0.2 % (0-5); LYMPHOCYTES 17.7 % (15-50); MCH 29.7 pg (26.0-34.0); MCHC 34.8 g/dL (31.0-37.0); MCV 85.2 fL (80.0-100.0); MEAN PLATELET VOLUME 10.1 fL (7.4-10.4); MONOCYTES 6.6 % (2-11); PLATELET COUNT 130 10x3/uL (130-400); RBC 3.17 10x6/uL (4.20-6.10); RDW 13.6 % (11.5-14.5); WBC 4.6 10x3/uL (4.8-10.8)
[2017-06-02 13:25] LABS: INR 1.35 (0.85-1.17); PROTIME 16.2 SECONDS (11.6-15.0)
[2017-06-02 13:43] VITALS: BP 91/32; BMI 30.6
[2017-06-02 13:44] LABS: ALBUMIN 3.1 g/dL (3.4-5.0); ANION GAP 21.1 mmol/L (8-16); BILIRUBIN - TOTAL 0.33 mg/dL (0.2-1.3); CALCIUM 7.4 mg/dL (8.5-10.1); CARBON DIOXIDE 21.9 mmol/L (21.0-32.0); CREATININE - SERUM 11.6 mg/dL (0.6-1.3); PROTEIN - SERUM 6.9 g/dL (6.4-8.2)
[2017-06-02] MEDS ORDERED: LONITEN10 MG PO (15:04)
[2017-06-02] MEDS ORDERED: SENSIPAR90 MG PO (15:05)
[2017-06-02] MEDS ORDERED: TUMS500 MG PO (15:05)
[2017-06-02] MEDS ORDERED: VELPHORO500 MG PO (15:11)
[2017-06-02] MEDS ORDERED: NORMODYNE / TR200 MG PO (15:12)
[2017-06-02] MEDS ORDERED: FERRIC CITRATE210 MG PO (15:13)
[2017-06-02] MEDS ORDERED: FISH OIL 1,2001 CAP PO (15:15)
[2017-06-02 16:35] VITALS: BP 91/32
[2017-06-02 21:56] VITALS: BP 90/43
[2017-06-03 06:02] LABS: APPEARANCE TURBID (CLEAR); BILIRUBIN NEGATIVE (NEGATIVE); COLOR DK YELLOW (YELLOW); EPITHELIAL CELLS RARE /hpf (0-5); GLUCOSE NEGATIVE (NEGATIVE); KETONE NEGATIVE (NEGATIVE); NITRITE NEGATIVE (NEGATIVE); PROTEIN 1+ mg/dL (NEGATIVE); UROBILINOGEN NORMAL (NORMAL); WHITE CELLS - URINE 25-50 /hpf (0-5)
[2017-06-03 06:03] LABS: BACTERIA MODERATE /hpf (NONE SEEN); MUCUS >1+ /lpf (NONE SEEN)
[2017-06-03 06:09] VITALS: BP 119/60
[2017-06-03 06:46] LABS: EOSINOPHILS 2.9 % (0-7); HEMATOCRIT 28.3 % (42.0-54.0); HEMOGLOBIN 9.7 g/dL (13.5-17.5); LYMPHOCYTES 21.4 % (15-50); MCH 28.8 pg (26.0-34.0); MCHC 34.3 g/dL (31.0-37.0); MEAN PLATELET VOLUME 10.2 fL (7.4-10.4); MONOCYTES 9.6 % (2-11); NEUTROPHILS 65.1 % (40-80); PLATELET COUNT 130 10x3/uL (130-400); RBC 3.37 10x6/uL (4.20-6.10); RDW 13.7 % (11.5-14.5); WBC 4.1 10x3/uL (4.8-10.8)
[2017-06-03 07:13] LABS: ANION GAP 23.3 mmol/L (8-16); BILIRUBIN - TOTAL 0.4 mg/dL (0.2-1.3); CARBON DIOXIDE 18.8 mmol/L (21.0-32.0); CREATININE - SERUM 12.4 mg/dL (0.6-1.3); POTASSIUM - SERUM 5.1 mmol/L (3.5-5.1); PROTEIN - SERUM 7.1 g/dL (6.4-8.2)
[2017-06-03 08:43] VITALS: BP 135/75
[2017-06-03 13:29] VITALS: Ht 190.5 cm; Wt 104.5 kg
[2017-06-03 22:00] VITALS: BP 123/61
[2017-06-04 00:05] LABS: APPEARANCE HAZY (CLEAR); COLOR YELLOW (YELLOW)
[2017-06-04 00:06] LABS: BACTERIA FEW /hpf (NONE SEEN); BILIRUBIN NEGATIVE (NEGATIVE); EPITHELIAL CELLS RARE /hpf (0-5); GLUCOSE NEGATIVE (NEGATIVE); KETONE NEGATIVE (NEGATIVE); NITRITE NEGATIVE (NEGATIVE); PROTEIN 1+ mg/dL (NEGATIVE); UROBILINOGEN NORMAL (NORMAL)
[2017-06-04 00:36] VITALS: BP 102/55
[2017-06-04 05:11] VITALS: BP 138/57
[2017-06-04 05:13] LABS: BASOPHILS 0.9 % (0-2); EOSINOPHILS 2.1 % (0-7); HEMATOCRIT 29.3 % (42.0-54.0); LYMPHOCYTES 16.9 % (15-50); MCHC 34.1 g/dL (31.0-37.0); MCV 84.9 fL (80.0-100.0); MEAN PLATELET VOLUME 9.4 fL (7.4-10.4); MONOCYTES 14.5 % (2-11); NEUTROPHILS 65.6 % (40-80); PLATELET COUNT 119 10x3/uL (130-400); RBC 3.45 10x6/uL (4.20-6.10); RDW 13.9 % (11.5-14.5); WBC 3.4 10x3/uL (4.8-10.8)
[2017-06-04 05:41] LABS: ANION GAP 21.4 mmol/L (8-16); CALCIUM 8.7 mg/dL (8.5-10.1); CREATININE - SERUM 10.1 mg/dL (0.6-1.3); POTASSIUM - SERUM 4.4 mmol/L (3.5-5.1)
[2017-06-04 06:13] LABS: PHOSPHOROUS 10.1 mg/dL (2.5-4.9)
[2017-06-04 09:19] VITALS: BP 136/67
[2017-06-04 17:07] VITALS: BP 108/50
[2017-06-04 21:08] VITALS: BP 129/58
[2017-06-05] VITALS (17 sets, daily range): BP systolic 104–146; BP diastolic 53–74
[2017-06-05 06:46] LABS: BASOPHILS 0.9 % (0-2); EOSINOPHILS 3.1 % (0-7); HEMATOCRIT 30.5 % (42.0-54.0); HEMOGLOBIN 10.4 g/dL (13.5-17.5); LYMPHOCYTES 16.3 % (15-50); MCH 29.1 pg (26.0-34.0); MCHC 34.1 g/dL (31.0-37.0); MCV 85.4 fL (80.0-100.0); MEAN PLATELET VOLUME 10.4 fL (7.4-10.4); NEUTROPHILS 65.7 % (40-80); RBC 3.57 10x6/uL (4.20-6.10); RDW 13.9 % (11.5-14.5)
[2017-06-05 06:47] LABS: PLATELET COUNT 143 10x3/uL (130-400); WBC 4.5 10x3/uL (4.8-10.8)
[2017-06-05 06:52] LABS: HEMOGLOBIN A1C 5.5 % (4.8-6.0)
[2017-06-05 07:28] LABS: ALBUMIN 3.2 g/dL (3.4-5.0); ANION GAP 20.1 mmol/L (8-16); BILIRUBIN - TOTAL 0.6 mg/dL (0.2-1.3); CALCIUM 9.4 mg/dL (8.5-10.1); CARBON DIOXIDE 23.6 mmol/L (21.0-32.0); CREATININE - SERUM 8.3 mg/dL (0.6-1.3); PHOSPHOROUS 8.2 mg/dL (2.5-4.9); PROTEIN - SERUM 7.5 g/dL (6.4-8.2); T4 THYROXIN - FREE 0.97 ng/dL (0.76-1.46); THYROID STIMULATING HORMONE 3.08 uIU/mL (0.36-3.74); URIC ACID 4.6 mg/dL (2.6-7.2)
[2017-06-05 07:30] LABS: POTASSIUM - SERUM 3.7 mmol/L (3.5-5.1)
--- NOTE | 2017-06-05 12:48 | HP ---
PATIENT: FLO KAMARA MEDICAL RECORD: [id number] ACCOUNT: [id number] LOCATION:[address] : 72 ADMISSION DATE: 06/02/17 HISTORY AND PHYSICAL EXAMINATION FLO Barbour (46yo, M) ID# [id number]. Date/Time06/02/2017 10:36OTUQA21 1971[facility] Dept.[facility]_[place] [facility] ClinicProviNorthside Hospital DuluthTREVOR JAMISON MDInsuranceMed Primary: [place] Insurance # : [id number] Employer Name : DISABLED Med Secondary: [employer] Insurance # : [id number] Employer Name : DISABLED Prescription: CMX - Member is eligible. Chief Complaint None recorded. Vitals BP:88/40 sitting R arm 06/02/2017 11:44 amBP Cuff Size:adult 06/02/2017 11:44 amHR:72,reg 06/02/2017 11:45 amHt:6 ft 3 in 06/02/2017 11:45 amWt:245 lbs 06/02/2017 11:45 amNotes:low bp past week, feels really tired and gnyymf1208/03/2016 11:45 amBMI:30.6 06/02/2017 11:45 amAllergies Reviewed Allergies NKDAMedications Reviewed Medications cephALEXin 500 mg capsule TAKE ONE CAPSULE BY MOUTH TWO TIMES DAILY UNTIL ALL TAKEN02/03/17 filledsurescriptslabetalol 200 mg bsqull60/02/17 filledCaremarklosartan 50 mg hsdifk06/15/17 filledCaremarkmetoprolol tartrate 25 mg inzpcr83/15/17 filledCaremarkminoxidil 10 mg belgaq36/15/17 filledCaremarkSensipar 30 mg kpycoq93/05/17 filledCaremarkProblems Reviewed Problems Dependence on hemodialysis - Onset: 06/02/2017 Coronary atherosclerosis - Onset: 06/02/2017 Mitral valve stenosis - Onset: 06/02/2017 Aortic valve stenosis - Onset: 06/02/2017 preop, prep for direct admission Family History Discussed Family History Social History Discussed Social History Smoking Status: Unknown if ever smoked Surgical History Reviewed Surgical History Past Medical History Discussed Past Medical History High Blood Pressure: Y Kidney Disease: Y Kidney Failure: Y Documents for Discussion N/A Screening None recorded. HISTORY AND PHYSICAL [id number] FLO KAMARA [facility] Coronary Artery Disease F/U Reported by patient. Severity: symptoms are improving; no chest discomfort with daily activities; has not needed to use Nitroglycerin Context: non-smoker Associated Symptoms: no chest pain; no neck pain; no left arm pain; no dyspnea with exertion; no sweating; no nausea; no stress Valvular Heart Disease Reported by patient. Context: aortic stenosis; mitral stenosis Associated Symptoms: dyspnea ; wears out easy aortic valvular stenosis Mitral valvular stenosis Occlusive coronary artery disease left anterior descending ROS Patient reports exercise intolerance but reports no fever, no night sweats, no significant weight gain, and no significant weight loss. He reports jugular vein distension but reports no swollen glands. He reports shortness of breath when walking, shortness of breath when lying down, palpitations, and known heart murmur but reports no chest pain and no arm pain on exertion. He reports shortness of breath but reports no cough, no wheezing, and no coughing up blood. He reports no abdominal pain, no vomiting, normal appetite, no diarrhea, not vomiting blood, no nausea, and no constipation; ascites. He reports no dry eyes, no irritation, and no vision change. He reports no difficulty hearing and no ear pain. He reports no frequent nosebleeds and no nose/sinus problems. He reports no sore throat, no bleeding gums, no snoring, no dry mouth, no mouth ulcers, no oral abnormalities, and no teeth p r oblems. He reports no incontinence, no difficulty urinating, no hematuria, and no increased frequency. He reports no muscle aches, no muscle weakness, no arthralgias/joint pain, no back pain, and no swelling in the extremities. He reports no abnormal mole , no jaundice, and no rashes. He reports no loss of consciousness, no weakness, no numbness, no seizures, no dizziness, and no headaches. He reports no depression, no sleep disturbances, feeling safe in relationship, and no alcohol abuse. He reports no fat igue. He reports no swollen glands and no bruising. He reports no runny nose, no sinus pressure, no itching, no hives, and no frequent sneezing. ROS as noted in the HPI Physical Exam Patient is a 46-year-old male. Constitutional: General Appearance healthy-appearing, well developed, and overweight. Level of Distress chronically ill. Ambulation ambulating normally. Cardiovascular: Apical Impulse not displaced or no thrill. Heart Auscultation normal s1 and s2, no rubs or gallops, and RRR and murmur (mitral stenosis Aortic stenosis). Neck Vessels JVD. Arterial Pulses no abdominal aorta bruits, femoral bruits, or popliteal bruits and 2+ bilateral, carotid 2+ bilateral, femoral 2+ bilateral, popliteal 2+ bilateral, and dorsalis pedis 2+ bilateral. Edema no varicosities and edema. Lungs: Repiratory Effort no dyspnea. Percussion no hyperresonance and dullness or flatness (basins bilaterally). Auscultation no wheezing or rhonchi and breathing sounds normal, good air movement, and wet rales / crackles. HISTORY AND PHYSICAL [id number] FLO KAMARA Abdomen: Bowl Sounds normal. Inspection and Palpation no tenderness, guarding, masses, or rebound tenderness and soft and non-distended; fluid wave and ascites. Liver non-tender and no hepatomegaly. Spleen non-tender and no splenomegaly. Hernia none palpable. Musculoskeletal System: Gait And Stance normal gait and stance. Digits and Nails normal nails and no cyanosis. Neurologic: Cranial Nerves grossly intact. Reflexes DTRs 2+ bilaterally throughout. Sensation grossly intact. Lymph Nodes: Lymph Nodes no cervical LAD, supraclavicular LAD, axillary LAD, or inguinal LAD. Eyes: Lids and Conjunctivae no discharge or pallor and non-injected. Pupils PERRLA. Cornea grossly intact. EOM EOMI. Lens clear. Sclerae non-icteric. Neck: Neck no masses, enlarged lymph nodes, or carotid bruits and supple and trachea midline. Thyroid no enlargement or nodules and non-tender. Skin: Inspection and Palpation no rash, lesions, ulcers, jaundice, or abnormal nevi. Assessment / Plan aortic stenosis Mitral stenosis Coronary artery disease Chronic renal failure with hemodialysis 1. Mitral valve stenosis I05.0: Rheumatic mitral stenosis MITRAL VALVE STENOSIS: CARE INSTRUCTIONS 2. Aortic valve stenosis I35.0: Nonrheumatic aortic (valve) stenosis AORTIC VALVE STENOSIS: CARE INSTRUCTIONS 3. Coronary atherosclerosis I25.118: Atherosclerotic heart disease of [place] coronary artery with other forms of angina pectoris 4. Dependence on hemodialysis Z99.2: Dependence on renal dialysis Discussion Notes severe aortic valvular stenosis mitral [place] ve stenosis and coronary artery disease patient has recurrence of ascites and shortness of breath Plan admission for further workup and surgical intervention Congestive heart failure systolic diastolic acute on chronic I have discussed his disease process with him in detail as well as the alternative methods of treatment have discussed aortic valve replacement and mitral valve replacement coronary artery bypass including the expected benefits and risks which included bleeding, infection, stroke, and , and the imponderables. He understands all of the above and wishes to proceed with planned intervention Need CT abdomen and pelvis for ascites. HISTORY AND PHYSICAL [id number] FLO KAMARA EDWARD MD at 1248 CC: [id number] DICTATION DATE: 06/02/17 1030 STONECUTTER APPRENTICE HAND: YAMILKA 06/02/17 1510 ADM IN [facility] [address] [place] [address]
[2017-06-05 14:42] LABS: APTT 35.6 SECONDS (22.8-39.4); INR 1.28 (0.85-1.17); PROTIME 15.5 SECONDS (11.6-15.0)
[2017-06-05 16:38] LABS: COLD SCREEN ROOM TEMP NEGATIVE (NEGATIVE)
[2017-06-05 17:09] LABS: COLD SCREEN @ 4 DEGREES 1+ (NEGATIVE)
[2017-06-06] VITALS (33 sets, daily range): BP systolic 85–145; BP diastolic 26–71
[2017-06-06 06:00] LABS: BASOPHILS 0.9 % (0-2); IMMATURE GRANULOCYTES 0.2 % (0-5); LYMPHOCYTES 14.4 % (15-50); MCHC 33.3 g/dL (31.0-37.0); MCV 87.1 fL (80.0-100.0); MEAN PLATELET VOLUME 10.2 fL (7.4-10.4); MONOCYTES 8.6 % (2-11); NEUTROPHILS 72.9 % (40-80); PLATELET COUNT 140 10x3/uL (130-400); RBC 3.79 10x6/uL (4.20-6.10); WBC 4.7 10x3/uL (4.8-10.8)
[2017-06-06 06:33] LABS: ANION GAP 22.4 mmol/L (8-16); CALCIUM 9.4 mg/dL (8.5-10.1); CARBON DIOXIDE 22.5 mmol/L (21.0-32.0); CREATININE - SERUM 9.7 mg/dL (0.6-1.3); POTASSIUM - SERUM 3.9 mmol/L (3.5-5.1)
[2017-06-06 07:50] LABS: PLT FUNCT.(P2Y12) PLAVIX 303 PRU (194-418)
[2017-06-06 16:33] LABS: HEMOGLOBIN 10.4 g/dL (13.5-17.5); MCH 29.5 pg (26.0-34.0); MCHC 33.5 g/dL (31.0-37.0); MCV 87.8 fL (80.0-100.0); MEAN PLATELET VOLUME 9.3 fL (7.4-10.4); RBC 3.53 10x6/uL (4.20-6.10); RDW 14.1 % (11.5-14.5)
[2017-06-06 16:43] LABS: WBC 14.7 10x3/uL (4.8-10.8)
[2017-06-06 16:48] LABS: ANION GAP 21.9 mmol/L (8-16); CARBON DIOXIDE 24.5 mmol/L (21.0-32.0); CREATININE - SERUM 9.3 mg/dL (0.6-1.3); POTASSIUM - SERUM 4.4 mmol/L (3.5-5.1)
[2017-06-06 16:49] LABS: APTT 59.6 SECONDS (22.8-39.4); INR 1.8 (0.85-1.17); PROTIME 20.3 SECONDS (11.6-15.0)
[2017-06-06 21:29] LABS: INR 1.87 (0.85-1.17)
[2017-06-06 21:49] LABS: HEMATOCRIT 26.8 % (42.0-54.0); HEMOGLOBIN 9.2 g/dL (13.5-17.5); MCH 29.9 pg (26.0-34.0); MCHC 34.3 g/dL (31.0-37.0); MEAN PLATELET VOLUME 10.3 fL (7.4-10.4); RBC 3.08 10x6/uL (4.20-6.10); RDW 13.9 % (11.5-14.5)
[2017-06-06 21:55] LABS: PLATELET COUNT 82 10x3/uL (130-400); WBC 6.2 10x3/uL (4.8-10.8)
[2017-06-06 22:47] LABS: PLATELET ESTIMATE DECREASED
[2017-06-07] VITALS (97 sets, daily range): BP systolic 89–146; BP diastolic 27–49
[2017-06-07 00:31] LABS: INR 1.76 (0.85-1.17); PROTIME 19.9 SECONDS (11.6-15.0)
[2017-06-07 03:14] LABS: HEMOGLOBIN 8.7 g/dL (13.5-17.5); MCH 29.6 pg (26.0-34.0); MCHC 34.8 g/dL (31.0-37.0); MEAN PLATELET VOLUME 9.6 fL (7.4-10.4); RBC 2.94 10x6/uL (4.20-6.10); RDW 14.3 % (11.5-14.5); WBC 5.8 10x3/uL (4.8-10.8)
[2017-06-07 03:25] LABS: INR 1.71 (0.85-1.17); PROTIME 19.5 SECONDS (11.6-15.0)
[2017-06-07 06:53] LABS: ALBUMIN 3.7 g/dL (3.4-5.0); BILIRUBIN - TOTAL 1.8 mg/dL (0.2-1.3); CALCIUM 9.4 mg/dL (8.5-10.1); CARBON DIOXIDE 25.2 mmol/L (21.0-32.0); CREATININE - SERUM 9.6 mg/dL (0.6-1.3); POTASSIUM - SERUM 4.2 mmol/L (3.5-5.1); PROTEIN - SERUM 6.3 g/dL (6.4-8.2)
[2017-06-07 07:24] LABS: INR 1.73 (0.85-1.17); PROTIME 19.7 SECONDS (11.6-15.0)
[2017-06-07 07:33] LABS: BASOPHILS 0.1 % (0-2); EOSINOPHILS 0.1 % (0-7); HEMATOCRIT 25.2 % (42.0-54.0); HEMOGLOBIN 8.9 g/dL (13.5-17.5); IMMATURE GRANULOCYTES 0.1 % (0-5); MCHC 35.3 g/dL (31.0-37.0); MCV 84.8 fL (80.0-100.0); MEAN PLATELET VOLUME 11.1 fL (7.4-10.4); MONOCYTES 13.4 % (2-11); NEUTROPHILS 80.3 % (40-80); PLATELET COUNT 96 10x3/uL (130-400); RBC 2.97 10x6/uL (4.20-6.10); RDW 14.7 % (11.5-14.5); WBC 6.9 10x3/uL (4.8-10.8)
[2017-06-08] VITALS (80 sets, daily range): BP systolic 95–139; BP diastolic 26–70
[2017-06-08 06:09] LABS: BASOPHILS 0.4 % (0-2); EOSINOPHILS 0.9 % (0-7); HEMATOCRIT 24.5 % (42.0-54.0); HEMOGLOBIN 8.5 g/dL (13.5-17.5); IMMATURE GRANULOCYTES 0.1 % (0-5); LYMPHOCYTES 9.7 % (15-50); MCH 29.3 pg (26.0-34.0); MCHC 34.7 g/dL (31.0-37.0); MCV 84.5 fL (80.0-100.0); MONOCYTES 12.6 % (2-11); NEUTROPHILS 76.3 % (40-80); PLATELET COUNT 91 10x3/uL (130-400); RDW 14.8 % (11.5-14.5); WBC 8.1 10x3/uL (4.8-10.8)
[2017-06-08 06:47] LABS: ALBUMIN 3.6 g/dL (3.4-5.0); BILIRUBIN - TOTAL 1.99 mg/dL (0.2-1.3); CALCIUM 9.7 mg/dL (8.5-10.1); CARBON DIOXIDE 27.4 mmol/L (21.0-32.0); CREATININE - SERUM 7.8 mg/dL (0.6-1.3); PHOSPHOROUS 8.6 mg/dL (2.5-4.9); POTASSIUM - SERUM 4.4 mmol/L (3.5-5.1); PROTEIN - SERUM 6.7 g/dL (6.4-8.2)
--- NOTE | 2017-06-08 12:19 | CN ---
PATIENT NAME:FLO KAMARA MEDICAL RECORD: [id number] : 72 [facility] ADMIT DATE: 06/02/17 ACCOUNT: [id number] CONSULTING PHYSICIAN: SOURAV GUZMAN MD REFERRING PHYSICIAN: VISHNU JAMISON MD DATE OF CONSULTATION: 06/02/2017 HISTORY OF PRESENT ILLNESS: A 46-year-old gentleman with cardiac history who was seen on previous admission and found to have critical and mitral stenosis as well. He has single-vessel disease involving the LAD, quite symptomatic from this standpoint unfortunately. The pressures were reasonable. He is being admitted for bivalve CABG. We are asked to see him preoperatively. PAST MEDICAL HISTORY: Includes; 1. History of chronic renal insufficiency. 2. Hypertension. 3. Dyslipidemia. ALLERGIES: ADHESIVE TAPE. MEDICATIONS: Typically include losartan 50 mg p.o. daily, metoprolol 25 b.i.d., minoxidil 2.5 b.i.d., clonidine 0.2 b.i.d., Lasix 80 daily, and Zantac 20 b.i.d. SOCIAL HISTORY: He lives in [facility]. He is able to take care of all his ADLs, more problem with higher end activity due to underlying valvular disease and renal insufficiency. He smokes less than a pack a day. REVIEW OF SYSTEMS: The patient reports easy bruising but reports no swollen glands. The patient reports no fever, no night sweats, no significant weight gain, no significant weight loss. No significant exercise tolerance. The patient reports no dry eyes, no irritation, no vision change. Patient reports no difficulty hearing and no ear pain. Patient reports no frequent nose bleeds or nose and sinus problems. Patient reports on arm pain on exertion. No shortness of breath while lying down. No history of heart murmur. Patient reports no cough, no wheezing or coughing up blood. Patient reports no abdominal pain, no vomiting. Normal appetite. No diarrhea and not vomiting blood. No nausea and no constipation. Patient reports no incontinence. No difficulty urinating. No hematuria. No increased frequency. Patient reports no muscle aches. No weakness, no arthralgias, no back pain. No swelling of the extremities. Patient reports no abnormal mole, no jaundice, no rashes. Reports no loss of consciousness. No weakness and no numbness. No seizures, dizziness, or headaches. The patient reports no depression, no sleep disturbance, feeling safe in a relationship and no alcohol abuse. Patient reports on fatigue. Reports no runny nose or sinus pressure. No itching, no hives, and no frequent sneezing. PHYSICAL EXAMINATION: GENERAL: Middle-aged gentleman in no acute distress. VITAL SIGNS: Blood pressure 91/32, pulse 71 and regular. HEENT: Normocephalic, atraumatic. NECK: No bruits are noted. HEART: Regular, harsh II/ systolic ejection murmur heard throughout the entire precordium. LUNGS: Actually fairly good air excursion. ABDOMEN: Protuberant, nontender. CONSULT REPORT [id number] FLO KAMARA EXTREMITIES: Pulses are decreased 1+ with no edema. NEUROLOGIC: Grossly intact. IMPRESSION: Preop bivalve CABG, appears to be euvolemic on clinical examination. We will follow him perioperatively with you. Thank you for the consultation. TRANSINT:[id number] Voice Confirmation ID: [id number] DOCUMENT ID: [id number] SOURAV GUZMAN MD at 1219 CC: [id number] DICTATION DATE: 06/02/17 1452 ASSISTANT REAL ESTATE MANAGER: 06/02/17 1557 ADM IN [place] [address] [place] [address]
[2017-06-08 14:57] LABS: HEMATOCRIT 27.4 % (42.0-54.0); HEMOGLOBIN 9.3 g/dL (13.5-17.5)
[2017-06-08 23:13] LABS: HEMATOCRIT 25.6 % (42.0-54.0); HEMOGLOBIN 8.7 g/dL (13.5-17.5)
[2017-06-09] VITALS (57 sets, daily range): BP systolic 80–149; BP diastolic 27–94
[2017-06-09 06:33] LABS: BASOPHILS 0.4 % (0-2); HEMATOCRIT 25.6 % (42.0-54.0); HEMOGLOBIN 8.8 g/dL (13.5-17.5); IMMATURE GRANULOCYTES 0.3 % (0-5); LYMPHOCYTES 9.8 % (15-50); MCH 29.2 pg (26.0-34.0); MCHC 34.4 g/dL (31.0-37.0); MONOCYTES 9.8 % (2-11); NEUTROPHILS 78.7 % (40-80); PLATELET COUNT 98 10x3/uL (130-400); RBC 3.01 10x6/uL (4.20-6.10); RDW 14.9 % (11.5-14.5); WBC 7.9 10x3/uL (4.8-10.8)
[2017-06-09 06:56] LABS: ALBUMIN 3.4 g/dL (3.4-5.0); ANION GAP 18.1 mmol/L (8-16); CALCIUM 9.3 mg/dL (8.5-10.1); CARBON DIOXIDE 26.3 mmol/L (21.0-32.0); CREATININE - SERUM 9.2 mg/dL (0.6-1.3); POTASSIUM - SERUM 4.4 mmol/L (3.5-5.1); PROTEIN - SERUM 6.8 g/dL (6.4-8.2)
[2017-06-09 07:13] LABS: PHOSPHOROUS 9.4 mg/dL (2.5-4.9)
[2017-06-09 13:29] LABS: HEMATOCRIT 28.3 % (42.0-54.0); HEMOGLOBIN 9.8 g/dL (13.5-17.5)
[2017-06-10] VITALS (27 sets, daily range): BP systolic 82–131; BP diastolic 34–59
[2017-06-10 04:29] LABS: BASOPHILS 0.3 % (0-2); EOSINOPHILS 2.4 % (0-7); HEMOGLOBIN 10.2 g/dL (13.5-17.5); IMMATURE GRANULOCYTES 0.5 % (0-5); LYMPHOCYTES 7.6 % (15-50); MCH 29.4 pg (26.0-34.0); MCV 86.5 fL (80.0-100.0); MEAN PLATELET VOLUME 11.5 fL (7.4-10.4); NEUTROPHILS 77.2 % (40-80); PLATELET COUNT 94 10x3/uL (130-400); RBC 3.47 10x6/uL (4.20-6.10); RDW 14.6 % (11.5-14.5); WBC 6.6 10x3/uL (4.8-10.8)
[2017-06-10 04:47] LABS: ALBUMIN 3.3 g/dL (3.4-5.0); ANION GAP 18.5 mmol/L (8-16); BILIRUBIN - TOTAL 1.66 mg/dL (0.2-1.3); CALCIUM 9.1 mg/dL (8.5-10.1); CARBON DIOXIDE 27.4 mmol/L (21.0-32.0); PHOSPHOROUS 7.3 mg/dL (2.5-4.9); POTASSIUM - SERUM 3.9 mmol/L (3.5-5.1)
[2017-06-10 06:42] LABS: HEMATOCRIT 30.2 % (42.0-54.0); HEMOGLOBIN 10.3 g/dL (13.5-17.5); MCH 29.8 pg (26.0-34.0); MCHC 34.1 g/dL (31.0-37.0); MCV 87.3 fL (80.0-100.0); RBC 3.46 10x6/uL (4.20-6.10); RDW 14.7 % (11.5-14.5); WBC 5.6 10x3/uL (4.8-10.8)
[2017-06-10 19:25] LABS: ANION GAP 19.3 mmol/L (8-16); CARBON DIOXIDE 25.4 mmol/L (21.0-32.0); CREATININE - SERUM 9.1 mg/dL (0.6-1.3); POTASSIUM - SERUM 3.7 mmol/L (3.5-5.1)
[2017-06-11] VITALS (26 sets, daily range): BP systolic 100–142; BP diastolic 31–62
[2017-06-11 06:33] LABS: BASOPHILS 0.2 % (0-2); EOSINOPHILS 1.8 % (0-7); HEMATOCRIT 29.6 % (42.0-54.0); HEMOGLOBIN 10.2 g/dL (13.5-17.5); IMMATURE GRANULOCYTES 0.5 % (0-5); LYMPHOCYTES 9.3 % (15-50); MCH 29.7 pg (26.0-34.0); MCHC 34.5 g/dL (31.0-37.0); MONOCYTES 24.6 % (2-11); NEUTROPHILS 63.6 % (40-80); PLATELET COUNT 100 10x3/uL (130-400); RBC 3.44 10x6/uL (4.20-6.10); RDW 14.8 % (11.5-14.5); WBC 4.4 10x3/uL (4.8-10.8)
[2017-06-11 06:41] LABS: INR 3.2 (0.85-1.17)
[2017-06-11 06:58] LABS: ALBUMIN 3.1 g/dL (3.4-5.0); ANION GAP 23.6 mmol/L (8-16); BILIRUBIN - TOTAL 1.55 mg/dL (0.2-1.3); CALCIUM 9.1 mg/dL (8.5-10.1); CARBON DIOXIDE 21.3 mmol/L (21.0-32.0); CREATININE - SERUM 9.6 mg/dL (0.6-1.3); MAGNESIUM - SERUM 2.2 mg/dL (1.8-2.4); PHOSPHOROUS 5.8 mg/dL (2.5-4.9); POTASSIUM - SERUM 3.9 mmol/L (3.5-5.1); PROTEIN - SERUM 6.8 g/dL (6.4-8.2)
[2017-06-11 14:28] LABS: INR 2.26 (0.85-1.17); PROTIME 24.4 SECONDS (11.6-15.0)
[2017-06-11 19:28] LABS: ANION GAP 15.1 mmol/L (8-16); CALCIUM 9.2 mg/dL (8.5-10.1); POTASSIUM - SERUM 3.6 mmol/L (3.5-5.1)
[2017-06-11 19:35] LABS: CARBON DIOXIDE 28.5 mmol/L (21.0-32.0); CREATININE - SERUM 6.9 mg/dL (0.6-1.3)
[2017-06-12] VITALS (10 sets, daily range): BP systolic 102–132; BP diastolic 38–59
[2017-06-12 07:03] LABS: INR 3.94 (0.85-1.17); PROTIME 37.7 SECONDS (11.6-15.0)
[2017-06-12] MEDS ORDERED: COUMADIN2.5 MG PO (12:38)
[2017-06-12] MEDS ORDERED: CORDARONE200 MG PO (12:39)
[2017-06-12] MEDS ORDERED: ASPIRIN81 MG PO (12:40)
[2017-06-12] MEDS ORDERED: RENVELA2.4 GM PO (12:41)
--- NOTE | 2017-06-12 13:23 | OP ---
PATIENT NAME: FLO KAMARA MEDICAL RECORD: [id number] :72 [facility] AD[facility]ION DATE:06/02/17 SURGEON: CALIXTO BERMEO MD DATE OF OPERATION: 06/06/2017 SURGEON: Calixto Bermeo MD ANESTHESIA: General, Dr. Reese. OPERATION PERFORMED: 1. Coronary artery bypass utilizing left internal thoracic artery to the left anterior descending. 2. Aortic valve replacement utilizing a 23-mm mechanical [employer] aortic prosthesis. 3. Mitral valve replacement utilizing a 29-mm mechanical [employer] mitral valvular prosthesis. PREOPERATIVE DIAGNOSES: 1. Severe occlusive coronary artery disease with angina pectoris. 2. Aortic valvular stenosis. 3. Mitral valve stenosis. POSTOPERATIVE DIAGNOSES: Rheumatic mitral and aortic valvular stenosis, severe. INDICATION FOR OPERATION: Critical aortic stenosis and severe mitral valvular stenosis. Occlusive coronary artery disease, proximal left anterior descending. FINDINGS AT OPERATION: Rheumatic-appearing aortic stenosis, trileaflet valve. Rheumatic-appearing mitral valvular stenosis with severe valvular leaflet and annular calcification. ESTIMATED BLOOD LOSS: Cell Saver was used. The aortic valvular prosthesis, [employer], serial number [id number]. The mitral valvular prosthesis, [employer] serial number [id number]. DESCRIPTION OF PROCEDURE: After informed consent, adequate preoperative medication and evaluation, the patient was brought to the operating room and placed on the table in supine position. After induction of general endotracheal anesthesia and application of appropriate monitoring devices, the chest, neck, abdomen, and both legs were prepped and draped in a sterile field, utilizing Betadine scrub, alcohol, and Betadine solution. A Betadine-impregnated drape was also used. A median sternotomy incision was used and dissection carried down the fascia. Hemostasis maintained with electrocautery. The left internal thoracic was taken down and prepared for grafting. The patient was given a calculated dose of heparin, cannulated in the standard fashion utilizing 1 aortic and 2 venous cannulas with caval tapes and myocardial cooling. Temperature probes were also used. The patient was placed on cardiopulmonary bypass, cooled to 30 degrees centigrade. A cross clamp was placed just proximal to the aortic cannula and the patient was given cardioplegic solution through the aortic root. A retrograde cannula was also placed. The patient was given cold intermittent cardioplegic solution throughout the procedure, intermittently either through the root or through the retrograde cannula. The left anterior descending was exposed and the internal thoracic artery brought through the hole OPERATIVE REPORT [id number] ASADFLO Janet in pericardium, sutured left anterior descending end-to-side utilizing a running 8-0 Prolene suture. Pedicle was attached to epicardium with 6-0 Prolene suture. Next, the aorta was opened. The valve was examined and excised and the annulus underwent debridement. The valve sized to a 23 [employer] mechanical. The left atriotomy was then completed and the valve examined. The annulus was severely and heavily calcified. The anterior and posterior leaflets were severely calcified as well as the anterior annulus. The anterior leaflet was excised and the posterior chordae maintained. Calcium was removed from portions of the posterior leaflet to make it pliable enough to be able to imbricate. The sutures were placed circumferentially, then placed through the sewing ring of the valve. The valve lowered into position and secured. A vent was placed across the valve. The left atrium was partially closed utilizing 2 layers of running 3-0 Prolene suture. Circumferential valve sutures were placed in the aortic annulus and then passed through the sewing ring of the valve. The valve was lowered into position and secured. The valve was tested. There were no leaks. The aorta was closed in 2 layers utilizing running 4-0 Prolene suture. All maneuvers to remove trapped air for heart were performed. The patient was given retrograde cardioplegia, transitioned to antegrade cardioplegia and rewarmed to 37 degrees centigrade. Two atrial and 2 ventricular pacing wires were placed on the heart and brought through the epigastric area. After all air was removed by transesophageal echo, the atriotomy was closed with the remaining sutures. The patient was weaned from cardiopulmonary bypass. After being stable off bypass, he was given calculated dose of protamine to reverse the heparin. Hemostasis was achieved. A #40 right angle and #36 chest tubes were brought in through the epigastric area and placed in mediastinum. A separate left pleural tube was connected to underwater seal and suction. Chest was again irrigated. Instrument count and sponge count were correct times 2. Chest was closed in layers utilizing #7 wire on the sternum, #2 Vicryl in linea alba and pectoralis fascia. Subcutaneous tissue was approximated with 3-0 Vicryl and skin approximated with 3-0 subcuticular Vicryl. Sterile dressings were applied. The patient tolerated the procedure well and was transferred to cardiovascular recovery in critical, but stable condition. TRANSINT:[id number] Voice Confirmation ID: [id number] DOCUMENT ID: [id number] CALIXTO BERMEO MD at 1323 CC: [id number] DICTATION DATE: 06/06/17 172 MACHINE SIGN WRITER: 06/06/17 1842 ADM IN [place] [id number] [place] [address]
--- NOTE | 2017-06-15 15:46 | TEE ---
PATIENT:FLO KAMARA MEDICAL RECORD: [id number] LOCATION:[place] [address] AGE OF PATIENT: 46 ADMISSION DATE: 06/02/17 SEX: M REFERRING PHYSICIAN: INTERPRETING PHYSICIAN: NEEL RIVAS MD TRANSESOPHAGEAL ECHOCARDIOGRAM CIARRA CHARGE Y INDICATIONS: CABG/MVR/AVR PREMEDICATIONS: PATIENT'S RESPONSE PROCEDURE DOPPLER MEASUREMENTS: LVIT LA PA RA LVOT RVOT Asc. Ao AV Gradient Peak AV Mean AV Area MV Gradient Peak MV Mean MV Area INTERPRETATION: LVd: 5.7 cm LVs: 4.3 cm Doppler: 2-D: COLOR FLOW DOPPLER NORMAL SALINE STUDY: MISCELLANOUS: DIAGNOSIS: PLAN: Mobile Electronics Installer:1 Dr. Rivas Health Care Technician: Shade JOSHUA COMMENTS: DATE OF SERVICE: 06/06/2017 PROCEDURE: Transesophageal echo evaluation of valvular structures during bypass surgery, aortic valve and mitral valve replacement. FINDINGS: 1. Left ventricular chamber size is within normal limits. Left ventricular systolic function is normal. Overall ejection fraction estimated at 55%. 2. Left atrium, right atrium, and right ventricular chamber sizes are mildly TRANSESOPHAGEAL ECHOCARDIOGRAM REPORT [id number] FLO KAMARA dilated. 3. Valvular structures: Aortic valve demonstrates moderate calcific aortic stenosis. The mitral valve is overall structurally normal; however, there is [id number] mitral regurgitation. Tricuspid valve is normal. Mild tricuspid regurgitation. 4. No evidence of pericardial effusion or left ventricular thrombus. OVERALL IMPRESSION: Moderate aortic stenosis, severe mitral regurgitation for aortic and mitral valve replacement. TRANSINT:[id number] Voice Confirmation ID: [id number] DOCUMENT ID: [id number] at 1546 CC: [id number] DICTATION DATE: 06/06/17 1125 DIE MAKER: 06/06/17 1154 DIS IN 06/12/17 [place] [address] [place] [address]
== END 2017-06-12 14:03 | disposition home health service (06) | DRG 219 ==
LOC: D.SDCHOLD 12:30 → D.CVICU 12:31 → D.M2 12:31 → D.CVICU 06-05 16:26
PROVIDERS: Internal Medicine Nephrology; ADMIT Internal Medicine Cardiovascular Disease
PROC: 5A1D70Z Performance of Urinary Filtration, Intermittent, Less than 6 Hours Per Day (ICD-10-PCS; 2017-06-02)
PROC: 5A1221Z Performance of Cardiac Output, Continuous (ICD-10-PCS; 2017-06-06)
PROC: B245ZZ4 Ultrasonography of Left Heart, Transesophageal (ICD-10-PCS; 2017-06-06)
PROC: 02100ZC Bypass Coronary Artery, One Artery from Thoracic Artery, Open Approach (ICD-10-PCS; principal; 2017-06-06 07:30)
PROC: 02RF08Z Replacement of Aortic Valve with Zooplastic Tissue, Open Approach (ICD-10-PCS; 2017-06-06 07:30)
PROC: 02RG08Z Replacement of Mitral Valve with Zooplastic Tissue, Open Approach (ICD-10-PCS; 2017-06-06 07:30)
DX: I25.119 Atherosclerotic heart disease of native coronary artery with unspecified angina pectoris (principal); N18.6 End stage renal disease; R18.8 Other ascites; I12.0 Hypertensive chronic kidney disease with stage 5 chronic kidney disease or end stage renal disease; N39.0 Urinary tract infection, site not specified; E87.1 Hypo-osmolality and hyponatremia; N25.81 Secondary hyperparathyroidism of renal origin; I08.0 Rheumatic disorders of both mitral and aortic valves; D50.0 Iron deficiency anemia secondary to blood loss (chronic); Z99.2 Dependence on renal dialysis; I48.91 Unspecified atrial fibrillation

== ENCOUNTER 2017-06-14 17:43 | Inpatient (IN) | payer MEDICARE, OTHER ==
[~2017-06-14] VITALS: Ht 190.5 cm; Wt 102.3 kg
--- NOTE | ~2017-06-14 | OP ---
PATIENT NAME: FLO KAMARA MEDICAL RECORD: [id number] :72 LOCATION:[facility] D.CV05 ADMISSION DATE:06/14/17 SURGEON: ERICK SNOWDEN MD DATE OF OPERATION: 06/15/2017 PREOPERATIVE DIAGNOSES: 1. Septicemia. 2. Portal venous gas. POSTOPERATIVE DIAGNOSES: 1. Septicemia. 2. Portal venous gas with diffuse peritonitis. No evidence of bowel necrosis. 3. Six liters of foul-smelling dark ascites. 4. Scar over the right lobe of the liver, but no evidence of metastatic disease in the liver. 5. Normal-appearing gallbladder. 6. Normal-appearing stomach. PROCEDURES: Diagnostic laparoscopy with conversion to exploratory laparotomy, abdominal lavage, and placement of drain. SURGEON: Erick Snowden MD DITCH DIGGER: None. BLOOD LOSS: Minimal new blood loss. COMPLICATIONS: None. The risks, possible complications, and alternatives to the procedure were explained to the patient. He elects to proceed. OPERATIVE COURSE: The patient was conveyed to the operating room electively on 06/15/2017. General anesthesia was induced by the anesthesia staff. The abdomen was sterilely prepped and draped. A small skin yefri was accomplished in the left upper quadrant. A Veress needle was inserted through the skin yefri into the peritoneal cavity. CO2 insufflation was begun. Once a sufficient pneumoperitoneum had been achieved, a 5-mm trocar was inserted. Through the 5-mm trocar, a laparoscope was inserted. I examined the abdomen. I saw a lot of very dark, almost black-appearing ascites. This made me very concerned that there was a necrotic focus within the abdomen. The trocar was removed. I entered the abdomen through the midline. A generous midline incision was accomplished. Retractors were placed. I aspirated ascites. I then irrigated and aspirated. I examined the entire colon and rectum. I noted no evidence of necrosis. The gallbladder was not necrotic. It was not inflamed either. Liver findings are listed above. I ran the small bowel from ligament of Treitz to the ileocecal valve and then back. There was no evidence of bowel injury. No evidence of bowel necrosis. There was exudate on the small bowel as well as diffuse peritonitis throughout the abdomen, which was more concentrated in the proximal small bowel. I lavaged the abdomen some more. I brought out two 19-Swiss fully fluted drains, one on the right side of the abdomen and one on the left side of the abdomen. There were several hernia defects in the midline. The attenuated fascia around these were excised. I then approximated the fascia in the midline with a running horizontal mattress looped #1 PDS from cephalad and caudad directions. I then overran the fascial closure with a #1 OPERATIVE REPORT [id number] FLO KAMARA Vicryl. The subdermis was approximated with interrupted 3-0 Vicryls. The skin was approximated with metallic clips. The drains were sutured to the skin with 3-0 Prolenes. One staple was used at the trocar site. The patient was then conveyed back to the intensive care unit while being mechanically ventilated. TRANSINT:[id number] Voice Confirmation ID: [id number] DOCUMENT ID: [id number] ERICK SNOWDEN MD at 1327 CC: VISHNU JAMISON MD [id number] DICTATION DATE: 06/16/17 0947 DECKHAND TUNA BOAT: 06/16/17 [address] [facility] [address] [place] [address]
--- NOTE | ~2017-06-14 | CN ---
PATIENT NAME:FLO CAT MEDICAL RECORD: [id number] : 72 LOCATION:[facility] ADMIT DATE: 06/14/17 ACCOUNT: [id number] CONSULTING PHYSICIAN: JOHNY MARIANO MD REFERRING PHYSICIAN: ERICK GAUTHIER MD DATE OF CONSULTATION: 06/15/2017 CONSULT REQUESTING PHYSICIAN: Erick Snowden MD REASON FOR CONSULTATION: Vent management. HISTORY OF PRESENT ILLNESS: Mr. Cat is a 46-year-old gentleman who has a history of end-stage disease, renal failure, was just discharged home last week after mitral valve replacement and aortic valve replacement. The patient came in with hematemesis and the radiologic workup showed possibly the patient has ischemic bowel. The patient underwent laparotomy today by Dr. Snowden. Now, the patient was brought into the ICU on the ventilator. REVIEW OF SYSTEMS: As in history of present illness. PAST MEDICAL HISTORY: 1. CHF. 2. Hypertension. 3. End-stage renal disease. PAST SURGICAL HISTORY: 1. He has a dialysis placement. 2. Status post CABG, MVR, AVR in May 2017. ALLERGIES: HE IS ALLERGIC TO ADHESIVE. MEDICATIONS: In [employer] was reviewed. PERSONAL AND SOCIAL HISTORY: The patient is an ex-smoker. He is a nondrinker. FAMILY HISTORY: Significant for cardiovascular disease. PHYSICAL EXAMINATION: GENERAL: Now, the patient is orally intubated and sedated. VITAL SIGNS: The blood pressure is 127/42, pulse is 75, respiration is 22, temperature is 99.9, SpO2 is 98% on assist control mechanical ventilation. HEENT: Conjunctivae is pink, sclerae nonicteric. NECK: Supple. No JVD. CHEST: Excursion is minimal on both sides. There is no wheeze, no rales. HEART: Rhythm regular, normal sound, no murmur. ABDOMEN: Soft. No hepatosplenomegaly. There are no bowel sounds. RECTAL: Deferred. EXTREMITIES: No cyanosis, no clubbing, no pedal edema. SKIN: Warm, normal turgor. CENTRAL NERVOUS SYSTEM: The patient is orally intubated and sedated. IMAGING: Chest radiograph on the 14 of June, there is right subclavian central line, stable cardiomegaly, the prominent central pulmonary vasculature. OTHER LABORATORY DATA: CBC: WBC 11,000, hemoglobin 9.4, hematocrit 28.6, CONSULT REPORT [id number] FLO CAT platelet count 154. Sodium 124, potassium is 4.2, BUN is 102, creatinine 10.9. IMPRESSION: 1. Acute hypoxic respiratory failure post-procedure. 2. Status post laparotomy. 3. Hematemesis. 4. Questionable ischemic bowel. 5. Status post aortic valve replacement and mitral valve replacement. 6. End-stage renal disease. 7. Anemia. RECOMMENDATION: We will continue mechanical ventilation, GI and DVT prophylaxis, IV fluid, hemodialysis per nephrology, followup labs and chest radiograph. Discussed with RN and RT, discussed with the family. If the patient is stable, we will start weaning him in a.m. Follow up labs and chest radiograph. Dr. Snowden, thank you for involving me in the care of Mr. Cat. TRANSINT:[id number] Voice Confirmation ID: [id number] DOCUMENT ID: [id number] JOHNY MARIANO MD at 1406 CC: ERICK SNOWDEN MD [id number] DICTATION DATE: 06/15/17 1435 DIRECTOR OF PROPERTY MANAGEMENT: 06/15/17 1546 ADM IN [facility] [address] [place] [address]
--- NOTE | ~2017-06-14 | CN ---
PATIENT NAME:FLO KAMARA MEDICAL RECORD: [id number] : 72 LOCATION:[facility]CV05 ADMIT DATE: 06/14/17 ACCOUNT: [id number] CONSULTING PHYSICIAN: ERICK SNOWDEN MD REFERRING PHYSICIAN: ERICK GAUTHIER MD DATE OF CONSULTATION: 06/15/2017 This is a consultation note addendum. CHIEF COMPLAINT: Pain. HISTORY OF PRESENT ILLNESS: I was asked to see this patient in consultation. I spoke to the CVICU nurses last evening and the patient still had a significant amount of Coumadin effect with an elevated INR and elevated PT. The patient was given fresh frozen plasma. This morning, his INR is still elevated. He is receiving more fresh frozen plasma as well as vitamin K. The patient underwent a CT scan last evening. I have personally reviewed the CT images. I personally reviewed the CT report. It reveals portal venous gas. The patient does have a tender abdomen. This is very concerning for intestinal necrosis. I am going to plan for a diagnostic laparoscopy, probable exploratory laparotomy and possible bowel resection. Palpation aggravates. Nothing alleviates. His symptoms are moderate to severe in intensity. This is a consultation note addendum. For the typed portion of the consult note, please see the chart. This would include the past medical and surgical history, current medications, allergies, social history as well as family history. REVIEW OF SYSTEMS: Positive for chest pain. Positive for shortness of breath. Positive for abdominal pain. Review of systems is negative other than as is described above. PHYSICAL EXAMINATION: GENERAL: The patient appears acutely ill. Also appears chronically ill. VITAL SIGNS: Reviewed. EARS: External ears appear normal. EYES: Extraocular movements are intact. NECK: Trachea is midline. CHEST: No intercostal retractions. PULMONARY: Mildly labored. No stridor. ABDOMEN: Diffusely tender. There is peritonitis to percussion. EXTREMITIES: He has pitting edema at the ankles. BACK: No thoracic kyphosis. LYMPHATICS: No lymphangitic streaking of the exposed extremities. PSYCHIATRIC: Anxious affect. NEUROLOGIC: Answers questions appropriately. IMPRESSION: 1. Portal venous gas. 2. Septicemia. 3. Peritonitis. PLAN: IV antibiotics. Operative intervention as described above. CONSULT REPORT [id number] FLO KAMARA TRANSINT:[id number] Voice Confirmation ID: [id number] DOCUMENT ID: [id number] ERICK SNOWDEN MD at 1327 CC: [id number] DICTATION DATE: 06/15/17 183 OCCUPATIONAL THER: 06/15/17 2308 ADM IN [place] [id number] [place] [id number]
--- NOTE | ~2017-06-14 | DS ---
PATIENT:FLO CAT :72 MEDICAL RECORD: [id number] DISCHARGE SUMMARY ADMISSION DATE: 06/14/17 DISCHARGE DATE: 06/27/17 HISTORY OF PRESENT ILLNESS: Mr. Cat is a 46-year-old white male who has had recent aortic and mitral valve surgery, discharged on Coumadin, was stable until approximately 1 day prior to admission with the onset of nausea, comes to the Emergency Room after an episode of hematemesis and noted to have abdominal pain and admitted for the above. HOSPITAL COURSE: The patient's INR was elevated and his GI bleeding was felt secondary to that. His abdominal pain continued to worsen. CT scan revealed a possible gas in the biliary system. With the possibility of ischemic bowel, was taken to surgery and had exploratory lap by Dr. Lainez that was essentially negative with a suspicion, but he did have evidence of peritonitis that eventually grew and enterococcus, seen by Dr. Sheridan, and he had a complete 2-week course of vancomycin, Flagyl and Merrem and did well with this. The enterococcus was sensitive to the antibiotics. He had a mesenteric arteriogram that was negative for ischemia. He was able to have his Coumadin restarted for his atrial fib. He underwent acute dialysis with recurrent transfusion. At the time of discharge, he had a controlled atrial fib, had restarted on his Coumadin and was basically back to baseline. DISCHARGE DIAGNOSES: 1. Acute abdomen due to bacterial peritonitis with negative exploratory lap and mesenteric arteriogram, status post antibiotic therapy. 2. Hematemesis secondary to a prolonged INR, which is now resolved. 3. Atrial fibrillation, on chronic medical therapy. 4. End-stage renal disease, chronic dialysis. 5. Chronic anemia. 6. Chronic obstructive pulmonary disease with smoking within the last 3 months. DISCHARGE PLANS: The patient will be discharged today. He will resume home hemo. He will have home dialysis. He will see me in the office in 1 to 2 weeks. We will monitor his INR on a regular basis. DISCHARGE MEDICATIONS: Will be his inhaler of Brovana 15 mcg b.i.d., Cordarone 200 b.i.d., Coumadin 2 mg daily, Epogen as prescribed, Colace 1 b.i.d. He will take PhosLo 2 t.i.d., Nephro-Josefina 1 daily, Protonix 40 b.i.d. and continue his updrafts at home. TRANSINT:[id number] Voice Confirmation ID: [id number] DOCUMENT ID: [id number] ERICK GAUTHIER MD at 0707 CC: [id number] DICTATION DATE: 06/27/17 0737 PANTOGRAPH MACHINE OPERATOR: 06/27/17 1323 DIS IN 06/27/17 [facility] [address] [place] [id number]
--- NOTE | ~2017-06-14 | EC ---
PATIENT:FLO KAMARA DATE OF SERVICE: 06/14/17 SEX: M MEDICAL RECORD: [id number] DATE OF : 72 LOCATION:[place] [address] AGE OF PATIENT: 46 ADMISSION DATE: 06/14/17 REFERRING PHYSICIAN: INTERPRETING PHYSICIAN: PARUL CHAN MD ECHOCARDIOGRAM REPORT ECHO CHARGES 4 ECHO COMPLETE CLINICAL DIAGNOSIS: CP - S/P CABG/MVR/AVR ECHOCARDIOGRAPHIC MEASUREMENTS (adult normal given) AC root (d.<3.7cm) 3.6 cm LV Septum d (<1.2 cm> 1.7 cm Valve Excursion 1.3 cm LV Septum (systole) 2.7 cm Left Atria (s.<4.0cm> 5.7 cm LVPW d(<1.2cm) 1.8 cm RV (d.<2.3cm) 3.5 cm LVPW (sytole) 2.7 cm LV diastole(<5.6CM) 5.9 cm MV E-F(>70mm/sec) cm LV systole 3.2 cm LVOT Diameter 2.0 cm MV exc.(>10mm) cm Est.ejection fraction (50-75%) % Pericardial Effusion Y DOPPLER: LVIT cm/sec A cm/sec E 268 cm/sec LA cm/sec RVSP 55.0 mmHg LVOT 131 cm/sec AOP1/2T m/s Asc. Ao 269 cm/sec RVOT 93.0 cm/sec RA cm/sec PA 195 cm/sec AV Gradient Peak 29.0 mmHg AV Mean 14.4 mmHg AV Area 1.3 cm MV Gradient Peak 31.0 mmHg MV Mean 7.8 mmHg MV Area cm COMMENTS: Alternative Energy Technician: Shade STILLOE Manager Merchandising: 4 Dr. Chan TAPE# PACS DATE OF SERVICE: 06/14/2017 PROCEDURE: Transthoracic echocardiogram. FINDINGS: 1. Left ventricle has severe concentric left ventricular hypertrophy. The ejection fraction is 55% to 60%. There are no noted regional wall motion abnormalities. The patient is in atrial fibrillation. Cannot comment on diastolic function. 2. Aortic valve is a mechanical valve reportedly. The peak pressure gradient ECHOCARDIOGRAM REPORT [id number] FLO KAMARA across that mechanical valve is 29, which may be appropriate depending on the annulus size and type of valve. 3. The mitral valve is grossly functioning appropriately for being a mechanical valve. 4. There is trace pericardial effusion. 5. The tricuspid valve has trace tricuspid regurgitation. The RVSP is 55 mmHg. 6. The right ventricle shows right ventricular enlargement and right ventricular hypertrophy with normal function. 7. The right atrium is severely dilated. 8. The IVC is dilated and does not collapse. CONCLUSION: The patient has left ventricular hypertrophy and hypertensive heart disease with mechanical valve replacement in the mitral and aortic valve showing gross normal function. There is evidence of moderate pulmonary hypertension. TRANSINT:[id number] Voice Confirmation ID: [id number] DOCUMENT ID: [id number] 06/23/2017 Edited to correct date of service, dmm. PARUL CHAN MD at 1000 CC: [id number] DICTATION DATE: 06/16/17 0740 STAFF REGISTERED NURSE: 06/16/17 1103 ADM IN [facility] [address] [place] [address]
--- NOTE | ~2017-06-14 | HEMODYNAMI ---
PATIENT:FLO KAMARA MEDICAL RECORD: [id number] : 72 LOCATION:[facility] ADMISSION DATE: 06/14/17 Generatedon:06/20/201717:07 Patient name: FLO KAMARA Patient #: [id number] SSN: : 1970 Date of study: 06/20/2017 Page: Of Hemodynamic Procedure Report Patient Data Patient Demographics Procedure consent was obtained First Name: FLO Gender: Male Last Name: ASAD : 1970 Middle Initial: P Age: 46 year(s) Patient #: [id number] Race: Unknown Additional ID: [id number] Contact details Address: [address] [place] [address] State: [place] City: [place] Zip code: [address] Admission Admission Data Admission Date: 06/14/2017 Admission Time: 21:11 Room #: [facility] Procedure Procedure Types Cath Procedure Peripheral Cath Diagnostic Procedure Miscellaneous Procedure Description Procedure Date Procedure Date: 06/20/2017 Procedure Start Time: 15:50 Procedure Staff Name Function Keren Campos RT Monitor Yusuf Mari RT Scrub Mukund Johnson MD Performing Physician Mahogany Barnett RN Nurse Procedure Data Cath Procedure Fluoroscopy Diagnostic fluoroscopy Total fluoroscopy Time: 8.8 time: 8.8 min min Diagnostic fluoroscopy Total fluoroscopy dose: dose: 4275 mGy 4275 mGy Contrast Material Contrast Material Type Amount (ml) Isovue 300 260 Entry Location Entry Primary Successful Side Size Upsize Upsize Entry Closure Succes sful Closure Location (Fr) 1 (Fr) 2 (Fr) Remarks Device Remarks Femoral Left Exoseal artery Diagnostic catheters Device Type Used For End Catheter Placement Merit ULTRA BOLUS FLUSH 5Fr 65CM catheter ([id number]) Procedure Medications Medication Administration Route Dosage Fentanyl I.V. 50 mcg Versed I.V. 1 mg Versed I.V. 1 mg Fentanyl I.V. 50 mcg Lidocaine 1% added to field 20 Heparin Flush Bag added to field 4 bags (1000units/500ml NS) Oxygen NC 3 l/min Hemodynamics Rest Heart Rate: 128 (bpm) Pressure Samples Time Site Value (mmHg) Purpose Heart Use Rate(bpm) 16:30 Anupama 56/49(49) Snapshot 121 16:33 Anupama 60/50(52) Snapshot 122 16:35 Anupama 65/51(56) Snapshot 122 16:35 Anupama 65/51(56) Snapshot 121 Snapshots Pre Cath Intra NCS Post Cath Vital Signs Time Heart Resp SPO2 etCO2 NIBP (mmHg) Rhythm Pain Sedation Rate (ipm) (%) (mmHg) Status Level (bpm) 14:52:14 115 20 28.3 Measuring NSR 0 (11) 10(A) , No pain 14:52:53 112 19 29.8 144/73(99) NSR 0 (11) 10(A) , No pain 14:57:16 125 19 30.6 137/77(101) NSR 0 (11) 10(A) , No pain 15:01:34 128 20 27.5 136/79(111) NSR 0 (11) 10(A) , No pain 15:05:56 117 20 27.5 144/70(102) NSR 0 (11) 10(A) , No pain 15:10:55 126 21 96 26.7 Measuring NSR 0 (11) 10(A) , No pain 15:11:08 106 19 30.6 146/73(111) NSR 0 (11) 10(A) , No pain 15:15:26 118 21 95 30.6 147/75(98) NSR 0 (11) 10(A) , No pain 15:19:46 110 22 28.3 135/65(97) NSR 0 (11) 10(A) , No pain 15:24:45 145 23 96 29.8 Measuring NSR 0 (11) 10(A) , No pain 15:25:05 129 29 29 125/67(108) NSR 0 (11) 10(A) , No pain 15:29:21 130 20 97 32.1 130/70(92) NSR 0 (11) 10(A) , No pain 15:33:37 124 21 96 29.8 139/71(106) NSR 0 (11) 10(A) , No pain 15:37:45 117 16 96 29 109/64(86) NSR 0 (11) 10(A) , No pain 15:42:44 120 6 94 29.8 Measuring NSR 0 (11) 10(A) , No pain 15:42:54 124 5 94 29.8 120/63(89) NSR 0 (11) 10(A) , No pain 15:47:10 130 95 30.6 122/67(101) NSR 0 (11) 10(A) , No pain 15:51:25 113 25 95 26 120/69(93) NSR 0 (11) 10(A) , No pain 15:55:42 111 15 96 30.6 123/61(82) NSR 0 (11) 10(A) , No pain 16:00:00 118 20 97 18.3 123/60(98) NSR 0 (11) 10(A) , No pain 16:04:16 121 9 96 29.8 128/68(85) NSR 0 (11) 10(A) , No pain 16:08:28 126 18 98 26 115/69(98) NSR 0 (11) 10(A) , No pain 16:13:27 110 25 96 32.1 Measuring NSR 0 (11) 10(A) , No pain 16:14:47 115 27 98 28.3 125/61(88) NSR 0 (11) 10(A) , No pain 16:19:04 123 23 97 23.7 141/70(89) NSR 0 (11) 10(A) , No pain 16:23:28 122 20 97 32.1 143/71(95) NSR 0 (11) 10(A) , No pain 16:27:46 123 23 97 32.1 141/70(90) NSR 0 (11) 10(A) , No pain 16:32:45 115 19 97 32.1 Measuring NSR 0 (11) 10(A) , No pain 16:33:09 125 20 96 34.4 122/65(80) NSR 0 (11) 10(A) , No pain 16:37:25 135 12 96 33.6 122/71(90) NSR 0 (11) 10(A) , No pain 16:41:43 120 19 96 30.6 127/68(104) NSR 0 (11) 10(A) , No pain 16:45:57 108 10 96 31.4 124/67(108) NSR 0 (11) 10(A) , No pain 16:50:16 119 23 96 29.8 117/68(92) NSR 0 (11) 10(A) , No pain Medications Time Medication Route Dose Verified Delivered Reason Notes Effe ctiveness by by 15:30:11 Heparin Flush added 4 Mahogany Mukund used for Bag to bags Anibal Johnson MD procedure (1000units/500ml RN NS) 15:30:30 Oxygen NC 3 Mahogany Mahogany used for l/min Anibal Barnett RN [employer] 15:30:48 Lidocaine 1% added 20ml Mahogany Mukund for local to vial Anibal Johnson MD anesthetic [facility] RN 15:50:36 Fentanyl I.V. 50 Mukund Mahogany for mcg Anibal Johnson RN sedation 15:50:47 Versed I.V. 1 mg Mukund Mahogany for Anibal Johnson RN sedation 15:55:23 Versed I.V. 1 mg Mukund Vides for Anibal Johnson RN sedation 15:55:30 Fentanyl I.V. 50 Mukund Mahogany for mcg Anibal Johnson RN sedation Procedure Log Time Note 14:46:04 Yusuf Mari RT (R) (CV) sent for patient. Start room use. 14:46:13 Time tracking: Regular hours 14:46:20 Plan of Care:Hemodynamics will remain stable., Cardiac rhythm will remain stable., Comfort level will be maintained., Respiratory function will remain adequate., Patient/ family verbilizes understanding of procedure., Procedure tolerated without complication., Recovers from procedure without complications.. 14:50:25 Vital chart was started 14:50:28 Baseline sample Acquired. 14:50:35 Patient received from CVICU to IR Alert and oriented. Tansferred to table in Supine position. 14:50:37 Correct patient and procedure confirmed by team. 14:50:39 Signed procedure consent form obtained from patient. 14:50:40 ECG and BP/O2 sat monitors applied to patient. 14:50:43 Full Disclosure recording started 14:50:45 - 14:50:51 H&P Date Dictated: 06/20/2017 Within 30 days and on chart.. 14:50:53 Pre-procedure instructions explained to patient. 14:50:54 Pre-op teaching completed and patient verbalized understanding. 14:50:56 Family in waiting room. 14:50:59 Patient NPO since Midnight. 14:51:07 Is the patient allergic to Iodine/contrast media? No. 14:51:09 Is patient on blood thinner?No 14:51:16 - 14:51:18 ----Pre-sedation anethsthesia assessment.---- 14:51:27 Previous problem with sedation/anesthesia? No ? 14:51:38 Snore? Yes 14:51:39 Sleep apnea? Yes 14:51:41 Deviated septum? No 14:51:42 Opens mouth fully? Yes 14:51:44 Sticks out tongue? Yes 14:51:51 Dentures? No ? 14:52:06 Airway obstruction? No copd 14:57:29 Use device set IR Diagnostic 14:57:31 Sterile Angiographic Pack opened to sterile field. 14:57:32 Bag Decanter (2002S) opened to sterile field. 14:57:33 ACIST Manifold (05377) opened to sterile field. 14:57:34 ACIST Hand Control (13770) opened to sterile field. 14:57:35 ACIST Syringe (24304) opened to sterile field. 14:57:47 SHEATH 5FR [place] (MEY548) opened to sterile field. 14:57:48 Micropuncture VSI 4FR kit opened to sterile field. 14:57:49 DOC .035 wire (Z46574) opened to sterile field. 14:58:10 - 14:59:33 Pre procedure: right dorsailis pedis pulse Doppler 14:59:39 Pre procedure: left dorsailis pedis pulse Doppler 14:59:51 Left groin area was prepped with chlora-prep and draped in sterile fashion 15:30:11 Heparin Flush Bag (1000units/500ml NS) 4 bags added to field was administered by Mukund Johnson MD; used for procedure; 15:30:30 Oxygen 3 l/min NC was administered by Mahogany Barnett RN; used for procedure; 15:30:48 Lidocaine 1% 20ml vial added to field was administered by Mukund Johnson MD; for local anesthetic; 15:34:44 - 15:34:53 GLIDE WIRE ANGLE 180cm (CP5581) opened to sterile field. 15:35:25 TORQUE DEVICE PLASTIC .038 ( TD01) opened to sterile field. 15:35:28 A Picomize ULTRA BOLUS FLUSH 5Fr 65CM catheter ([id number]) was advanced over the wire and used for . 15:35:47 TUBING Contrast Injection High Pressure (CEX224W) opened to sterile field. 15:35:57 GLIDE CATHETER 5FR COBRA 65cm (CG502) opened to sterile field. 15:49:55 Physician arrived 15:49:56 --------ALL STOP TIME OUT------ 15:50:20 Final Timeout: patient, procedure, and site verified with staff and physician. All members of the team are in agreement. 15:50:25 Left groin site verified by team. 15:50:32 Sedation plan: IV Moderate Sedation Medication:Versed, Fentanyl 15:50:36 Fentanyl 50 mcg I.V. was administered by Mahogany Anibal RN; for sedation ; 15:50:40 Procedure started. 15:50:47 Versed 1 mg I.V. was administered by Mahogany Barnett RN; for sedation; 15:50:52 Local anesthetic to left femerol artery with Lidocaine 1% by Mukund Johnson MD.INITIAL ACCESS ONLY 15:55:23 Versed 1 mg I.V. was administered by Mahogany Barnett RN; for sedation; 15:55:30 Fentanyl 50 mcg I.V. was administered by Mahogany Barnett RN; for sedation ; 15:56:09 AMPLATZ Super Stiff 75cm wire ([id number]) opened to sterile field. 16:00:16 Arterial access obtained using ultrasound guidance. 16:30:26 Zero performed for pressure channel P1 16:33:12 Zero performed for pressure channel P1 16:43:37 EXOSEAL 5Fr (EX500) opened to sterile field. 16:44:03 Sheath removed intact; hemostasis achieved with Exoseal to the Left Femoral artery. 16:44:03 A sheath was inserted into the Left Femoral artery 16:45:36 Procedure ended.(Physican Out) 16:47:40 Fluoroscopy time 08.80 minutes. 16:47:50 Fluoroscopy dose: 4275 mGy 16:47:50 Flurop Dose total: 4275 16:47:56 Contrast amount:Isovue 300 260ml. 16:48:06 Procedure and supply charges have been captured, reviewed, submitted an d are correct. 16:52:21 Report given to CVICU. 16:52:27 Patient transfered to CVICU with Bed. 16:52:43 End room use (Document Last) 16:53:19 Vital chart was stopped 16:53:24 Full Disclosure recording stopped Device Usage Item Name Manufacture Quantity Catalog Number Hospital Part Current [facility] Lot# / Charge Number Stock Stock Serial# Code Sterile Cardinal 1 [id number] 059319 5 Angiographic Health Pack Bag Decanter Microtek 1 [id number] 19083 762563 5 () Medical Inc. ACIST Manifold Acist 1 90735 357060 181610 267626 5 (63995) Medical Systems Inc ACIST Hand Acist 1 56090 410445 209235 791798 5 Control Medical (61273) Systems Inc ACIST Syringe Acist 1 99254 305022 397915 670001 20 (46577) Medical Systems Inc SHEATH 5FR Terumo 1 OXN354 015924 369347 326329 40 [place] (ZTW040) Micropuncture VSI VASCULAR 1 7266V 524042 598813 5 VSI 4FR kit SOLUTIONS DOC .035 wire Cook Medical 1 D53064 295380 206661 5 7148351 (T80656) GLIDE WIRE Terumo 1 XJ0673 735895 632700 059821 5 ANGLE 180cm (UA5609) TORQUE DEVICE [place] 1 TD01 658190 800787 784716 5 PLASTIC .038 ( Scientific TD01) Merit ULTRA Merit 1 [id number] 131151 972437 5 BOLUS FLUSH Medical 5Fr 65CM catheter ([id number]) TUBING Merit 1 [id number] 429836 251199 997820 5 Contrast Medical Injection High Pressure (VPC205U) GLIDE CATHETER Terumo 1 CG502 458342 427195 5 5FR COBRA 65cm (CG502) AMPLATZ Super [place] 1 [id number] 681426 393879 266463 5 Stiff 75cm Scientific wire ([id number]) EXOSEAL 5Fr Cardinal 1 EX500 519252 007967 903527 10 (EX500) Health Signature Audit Parker Stage Time Signature Unsigned Intra-Procedure 06/20/[address] [facility] RT 4:53:15 PM RT(R) (R) (CV) 06/20/2017 5:06:36 PM Intra-Procedure 06/20/2017 Keren Campos 5:07:31 PM RT(R) Signatures Monitor : Keren Campos RT Signature : Date : Time : [facility] [address] [place] [address]
--- NOTE | ~2017-06-14 | OP ---
PATIENT NAME: FLO KAMARA MEDICAL RECORD: [id number] :72 LOCATION:D.CVI D.CV05 ADMISSION DATE:06/14/17 SURGEON: ERICK SNOWDEN MD DATE OF OPERATION: 06/14/2017 PREOPERATIVE DIAGNOSES: 1. Respiratory insufficiency. 2. Chest pain. 3. Lack of peripheral IV access. 4. Central venous line placement for central venous pressures. POSTOPERATIVE DIAGNOSES: 1. Respiratory insufficiency 2. Chest pain. 3. Lack of peripheral IV access. 4. Central venous line placement for central venous pressures. PROCEDURE: Emergent placement of right subclavian infraclavicular central venous line placement, triple lumen. I was asked to come to the Emergency Room. The Emergency Room physician had already attempted central venous line placement several times at the right infraclavicular site. He spoke to Dr. Bermeo by phone. Dr. Bermeo recommended that I place a right infraclavicular subclavian line. The risks, possible complications and alternatives to procedure were explained to the patient. The right chest was sterilely prepped and draped. Local anesthetic was used to infiltrate the skin and subcutaneous tissues inferior to the right clavicle. I then percutaneously accessed the right subclavian vein in an antegrade fashion utilizing an infraclavicular approach. Guidewire was passed easily. A small skin yefri was accomplished. A vessel dilator was used to dilate the subcutaneous tract. A 16-cm triple lumen central venous catheter was inserted to the hub. It was sutured in place times 3. All lumens flushed easily and aspirated dark, nonpulsatile blood. The site was sterilely dressed. Chest x-ray is pending. TRANSINT:[id number] Voice Confirmation ID: [id number] DOCUMENT ID: [id number] ERICK SNOWDEN MD at 1327 CC: [id number] DICTATION DATE: 06/15/171830 DISPATCHER MAINTENANCE SERVICE: 06/15/17 2259 ADM IN [place] [id number] [place] [address]
[~2017-06-14 17:43] MED LIST changes: +ASPIRIN81 MG PO; +CORDARONE200 MG PO; +COUMADIN2.5 MG PO; +FISH OIL 1,2001 CAP PO; +RENVELA2.4 GM PO; +TUMS500 MG PO; +VELPHORO500 MG PO
[2017-06-14 18:22] LABS: BASOPHILS 0.3 % (0-2); EOSINOPHILS 2.1 % (0-7); HEMATOCRIT 28.8 % (42.0-54.0); HEMOGLOBIN 9.9 g/dL (13.5-17.5); IMMATURE GRANULOCYTES 0.7 % (0-5); LYMPHOCYTES 10.6 % (15-50); MCH 29.6 pg (26.0-34.0); MCHC 34.4 g/dL (31.0-37.0); MEAN PLATELET VOLUME 11.2 fL (7.4-10.4); MONOCYTES 8.2 % (2-11); NEUTROPHILS 78.1 % (40-80); RBC 3.35 10x6/uL (4.20-6.10); RDW 16.2 % (11.5-14.5); WBC 7.6 10x3/uL (4.8-10.8)
[2017-06-14 18:29] LABS: PLATELET COUNT 128 10x3/uL (130-400)
[2017-06-14 18:53] LABS: ALBUMIN 2.8 g/dL (3.4-5.0); ALKALINE PHOSPHATASE 147 U/L (46-116); ALT (SGPT) 199 U/L (10-68); BILIRUBIN - TOTAL 1.11 mg/dL (0.2-1.3); CALC OSMOLALITY 282 mosm/kg (275-300); CARBON DIOXIDE 21.9 mmol/L (21.0-32.0); CHOL - HDL RATIO 7.4 ratio (2.3-4.9); CHOLESTEROL, TOTAL 89 mg/dL (0-200); CKMB 2.7 U/L (0.0-3.6); CREATINE KINASE 96 UL (21-232); CREATININE - SERUM 10.9 mg/dL (0.6-1.3); GLUCOSE 124 mg/dL (74-106); HDL CHOLESTEROL 12 mg/dL (32-96); LDL CHOLESTEROL 47 mg/dL (0-100); LDL-HDL RATIO 3.9 ratio (1.5-3.5); POTASSIUM - SERUM 4.2 mmol/L (3.5-5.1); PROTEIN - SERUM 6.2 g/dL (6.4-8.2); SODIUM 124 mmol/L (136-145); TRIGLYCERIDE 152 mg/dL (30-200); UREA NITROGEN 102 mg/dL (7-18); eGFR NON AFRICAN AMERICAN 5 mL/min (90-120)
[2017-06-14 18:55] LABS: CHLORIDE - SERUM 85 mmol/L (98-107)
[2017-06-14 18:56] LABS: TROPONIN-I 1.105 ng/mL (0.000-0.060)
[2017-06-14 19:41] LABS: APTT 78.4 SECONDS (22.8-39.4); INR 4.93 (0.85-1.17); PROTIME 44.9 SECONDS (11.6-15.0)
[2017-06-14 21:24] LABS: HEMATOCRIT 28.6 % (42.0-54.0); HEMOGLOBIN 9.8 g/dL (13.5-17.5)
[2017-06-14 21:33] LABS: INR 4.71 (0.85-1.17); PROTIME 43.4 SECONDS (11.6-15.0)
[2017-06-14 23:59] LABS: BASOPHILS 0.3 % (0-2); EOSINOPHILS 0.8 % (0-7); HEMATOCRIT 28.6 % (42.0-54.0); HEMOGLOBIN 9.5 g/dL (13.5-17.5); IMMATURE GRANULOCYTES 0.5 % (0-5); LYMPHOCYTES 4.9 % (15-50); MCH 29.1 pg (26.0-34.0); MCHC 33.2 g/dL (31.0-37.0); MCV 87.7 fL (80.0-100.0); MONOCYTES 6.6 % (2-11); NEUTROPHILS 86.9 % (40-80); RBC 3.26 10x6/uL (4.20-6.10); RDW 16.9 % (11.5-14.5)
[2017-06-15] VITALS (55 sets, daily range): BP systolic 95–144; BP diastolic 18–56; BMI 30.3
[2017-06-15 00:03] LABS: PLATELET COUNT 154 10x3/uL (130-400)
[2017-06-15 01:43] LABS: INR 3.38 (0.85-1.17); PROTIME 33.4 SECONDS (11.6-15.0)
[2017-06-15 04:35] LABS: HEMATOCRIT 27.8 % (42.0-54.0); HEMOGLOBIN 9.5 g/dL (13.5-17.5)
[2017-06-15 04:50] LABS: INR 3.2 (0.85-1.17)
[2017-06-15 04:52] LABS: ANION GAP 21.3 mmol/L (8-16); BILIRUBIN - TOTAL 1.34 mg/dL (0.2-1.3); CALCIUM 8.1 mg/dL (8.5-10.1); POTASSIUM - SERUM 4.3 mmol/L (3.5-5.1); PROTEIN - SERUM 6.4 g/dL (6.4-8.2)
[2017-06-15 07:41] LABS: HEMATOCRIT 28.9 % (42.0-54.0)
[2017-06-15 08:45] LABS: INR 2.97 (0.85-1.17); PROTIME 30.2 SECONDS (11.6-15.0)
[2017-06-15 08:46] LABS: APTT 79.1 SECONDS (22.8-39.4)
[2017-06-15 11:03] LABS: HEMATOCRIT 29.3 % (42.0-54.0)
[2017-06-15 15:27] LABS: HEMOGLOBIN 8.6 g/dL (13.5-17.5)
[2017-06-15 15:44] LABS: APTT 70.8 SECONDS (22.8-39.4); INR 3.1 (0.85-1.17); PROTIME 31.2 SECONDS (11.6-15.0)
[2017-06-15 19:04] LABS: HEMATOCRIT 27.2 % (42.0-54.0); HEMOGLOBIN 9.5 g/dL (13.5-17.5)
[2017-06-15 19:14] LABS: APTT 58.5 SECONDS (22.8-39.4)
[2017-06-15 19:29] LABS: INR 2.27 (0.85-1.17); PROTIME 24.4 SECONDS (11.6-15.0)
[2017-06-15 23:20] LABS: HEMATOCRIT 25.4 % (42.0-54.0); HEMOGLOBIN 8.7 g/dL (13.5-17.5)
[2017-06-15 23:29] LABS: APTT 58.3 SECONDS (22.8-39.4); INR 2.09 (0.85-1.17); PROTIME 22.8 SECONDS (11.6-15.0)
[2017-06-16] VITALS (39 sets, daily range): BP systolic 93–119; BP diastolic 26–40; Ht 190.5 cm; Wt 102.3 kg
[2017-06-16 06:19] LABS: BASOPHILS 0.1 % (0-2); EOSINOPHILS 0.2 % (0-7); HEMATOCRIT 26.1 % (42.0-54.0); HEMOGLOBIN 8.8 g/dL (13.5-17.5); IMMATURE GRANULOCYTES 0.5 % (0-5); LYMPHOCYTES 7.6 % (15-50); MCH 29.6 pg (26.0-34.0); MCHC 33.7 g/dL (31.0-37.0); MCV 87.9 fL (80.0-100.0); MEAN PLATELET VOLUME 11.3 fL (7.4-10.4); MONOCYTES 8.8 % (2-11); NEUTROPHILS 82.8 % (40-80); PLATELET COUNT 164 10x3/uL (130-400); RBC 2.97 10x6/uL (4.20-6.10); RDW 16.7 % (11.5-14.5); WBC 12.2 10x3/uL (4.8-10.8)
[2017-06-16 06:40] LABS: INR 1.87 (0.85-1.17); PROTIME 20.9 SECONDS (11.6-15.0)
[2017-06-16 06:50] LABS: ALBUMIN 2.3 g/dL (3.4-5.0); ANION GAP 17.8 mmol/L (8-16); BILIRUBIN - TOTAL 1.46 mg/dL (0.2-1.3); CALCIUM 8.1 mg/dL (8.5-10.1); CARBON DIOXIDE 25.6 mmol/L (21.0-32.0); PHOSPHOROUS 7.1 mg/dL (2.5-4.9); POTASSIUM - SERUM 4.4 mmol/L (3.5-5.1); PROTEIN - SERUM 5.5 g/dL (6.4-8.2)
[2017-06-16 07:19] LABS: APTT 54.2 SECONDS (22.8-39.4)
[2017-06-16 11:05] LABS: HEMATOCRIT 27.5 % (42.0-54.0); HEMOGLOBIN 9.5 g/dL (13.5-17.5)
[2017-06-16 11:16] LABS: APTT 49.5 SECONDS (22.8-39.4); INR 1.85 (0.85-1.17); PROTIME 20.8 SECONDS (11.6-15.0)
[2017-06-16 15:16] LABS: HEMATOCRIT 26.6 % (42.0-54.0); HEMOGLOBIN 9.1 g/dL (13.5-17.5)
[2017-06-16 15:20] LABS: APTT 45.6 SECONDS (22.8-39.4); INR 1.88 (0.85-1.17); PROTIME 21.1 SECONDS (11.6-15.0)
[2017-06-16 18:50] LABS: HEMATOCRIT 26.3 % (42.0-54.0); HEMOGLOBIN 9.1 g/dL (13.5-17.5)
[2017-06-16 19:02] LABS: APTT 46.9 SECONDS (22.8-39.4); INR 1.87 (0.85-1.17); PROTIME 20.9 SECONDS (11.6-15.0)
[2017-06-16 23:02] LABS: HEMATOCRIT 26.7 % (42.0-54.0)
[2017-06-16 23:07] LABS: INR 1.87 (0.85-1.17); PROTIME 20.9 SECONDS (11.6-15.0)
[2017-06-16 23:08] LABS: APTT 42.6 SECONDS (22.8-39.4)
[2017-06-17] VITALS (50 sets, daily range): BP systolic 87–134; BP diastolic 26–58
[2017-06-17 03:31] LABS: BASOPHILS 0.2 % (0-2); EOSINOPHILS 0.8 % (0-7); HEMATOCRIT 26.2 % (42.0-54.0); IMMATURE GRANULOCYTES 0.6 % (0-5); LYMPHOCYTES 7.7 % (15-50); MCH 29.9 pg (26.0-34.0); MCHC 34.4 g/dL (31.0-37.0); MONOCYTES 6.9 % (2-11); NEUTROPHILS 83.8 % (40-80); PLATELET COUNT 158 10x3/uL (130-400); RBC 3.01 10x6/uL (4.20-6.10); RDW 16.7 % (11.5-14.5); WBC 12.7 10x3/uL (4.8-10.8)
[2017-06-17 03:38] LABS: INR 1.83 (0.85-1.17); PROTIME 20.6 SECONDS (11.6-15.0)
[2017-06-17 03:47] LABS: ALBUMIN 2.3 g/dL (3.4-5.0); ANION GAP 18.3 mmol/L (8-16); BILIRUBIN - DIRECT 1.03 mg/dL (0.00-0.30); BILIRUBIN - INDIRECT 0.61 mg/dL (0.00-1.00); BILIRUBIN - TOTAL 1.64 mg/dL (0.2-1.3); CALCIUM 8.3 mg/dL (8.5-10.1); CARBON DIOXIDE 24.5 mmol/L (21.0-32.0); CREATININE - SERUM 10.2 mg/dL (0.6-1.3); MAGNESIUM - SERUM 2.1 mg/dL (1.8-2.4); PHOSPHOROUS 9.1 mg/dL (2.5-4.9); POTASSIUM - SERUM 4.8 mmol/L (3.5-5.1); PROTEIN - SERUM 5.6 g/dL (6.4-8.2)
[2017-06-17 08:24] LABS: HEMATOCRIT 26.7 % (42.0-54.0); HEMOGLOBIN 9.1 g/dL (13.5-17.5)
[2017-06-17 08:36] LABS: APTT 43.4 SECONDS (22.8-39.4); INR 1.75 (0.85-1.17); PROTIME 19.9 SECONDS (11.6-15.0)
[2017-06-17 12:05] LABS: HEMATOCRIT 26.5 % (42.0-54.0); HEMOGLOBIN 9.1 g/dL (13.5-17.5)
[2017-06-17 12:14] LABS: APTT 42.5 SECONDS (22.8-39.4); INR 1.66 (0.85-1.17)
[2017-06-17 15:50] LABS: HEMATOCRIT 25.1 % (42.0-54.0); HEMOGLOBIN 8.6 g/dL (13.5-17.5)
[2017-06-17 16:08] LABS: APTT 42.9 SECONDS (22.8-39.4); INR 1.64 (0.85-1.17); PROTIME 18.9 SECONDS (11.6-15.0)
[2017-06-17 20:07] LABS: HEMATOCRIT 25.3 % (42.0-54.0); HEMOGLOBIN 8.7 g/dL (13.5-17.5)
[2017-06-17 20:41] LABS: APTT 43.4 SECONDS (22.8-39.4); INR 1.58 (0.85-1.17); PROTIME 18.4 SECONDS (11.6-15.0)
[2017-06-18] VITALS (59 sets, daily range): BP systolic 78–140; BP diastolic 33–59
[2017-06-18 00:23] LABS: HEMATOCRIT 26.4 % (42.0-54.0); HEMOGLOBIN 8.9 g/dL (13.5-17.5)
[2017-06-18 00:30] LABS: APTT 41.6 SECONDS (22.8-39.4); INR 1.56 (0.85-1.17); PROTIME 18.2 SECONDS (11.6-15.0)
[2017-06-18 05:21] LABS: HEMATOCRIT 26.7 % (42.0-54.0); MCH 29.9 pg (26.0-34.0); MCHC 33.7 g/dL (31.0-37.0); MCV 88.7 fL (80.0-100.0); MEAN PLATELET VOLUME 11.6 fL (7.4-10.4); RBC 3.01 10x6/uL (4.20-6.10); RDW 17.4 % (11.5-14.5); WBC 10.7 10x3/uL (4.8-10.8)
[2017-06-18 05:39] LABS: ALBUMIN 2.4 g/dL (3.4-5.0); ANION GAP 18.6 mmol/L (8-16); BILIRUBIN - TOTAL 2.03 mg/dL (0.2-1.3); CALCIUM 8.7 mg/dL (8.5-10.1); CARBON DIOXIDE 24.8 mmol/L (21.0-32.0); POTASSIUM - SERUM 4.4 mmol/L (3.5-5.1); PROTEIN - SERUM 5.8 g/dL (6.4-8.2)
[2017-06-18 05:42] LABS: CREATININE - SERUM 7.3 mg/dL (0.6-1.3)
[2017-06-18 06:05] LABS: APTT 43.3 SECONDS (22.8-39.4); INR 1.5 (0.85-1.17); PROTIME 17.7 SECONDS (11.6-15.0)
[2017-06-18 08:48] LABS: HEMATOCRIT 28.5 % (42.0-54.0); HEMOGLOBIN 9.6 g/dL (13.5-17.5)
[2017-06-18 08:56] LABS: INR 1.49 (0.85-1.17); PROTIME 17.5 SECONDS (11.6-15.0)
[2017-06-18 08:57] LABS: APTT 45.5 SECONDS (22.8-39.4)
[2017-06-19] VITALS (61 sets, daily range): BP systolic 71–126; BP diastolic 33–58
[2017-06-19 05:23] LABS: BASOPHILS 0.1 % (0-2); EOSINOPHILS 1.5 % (0-7); HEMATOCRIT 30.2 % (42.0-54.0); HEMOGLOBIN 10.1 g/dL (13.5-17.5); IMMATURE GRANULOCYTES 0.7 % (0-5); LYMPHOCYTES 4.1 % (15-50); MCH 29.4 pg (26.0-34.0); MCHC 33.4 g/dL (31.0-37.0); MCV 87.8 fL (80.0-100.0); MEAN PLATELET VOLUME 10.7 fL (7.4-10.4); MONOCYTES 8.2 % (2-11); NEUTROPHILS 85.4 % (40-80); PLATELET COUNT 195 10x3/uL (130-400); RBC 3.44 10x6/uL (4.20-6.10); RDW 17.1 % (11.5-14.5)
[2017-06-19 05:44] LABS: ALBUMIN 2.5 g/dL (3.4-5.0); CALCIUM 8.9 mg/dL (8.5-10.1); CARBON DIOXIDE 22.7 mmol/L (21.0-32.0); CREATININE - SERUM 8.8 mg/dL (0.6-1.3); POTASSIUM - SERUM 4.7 mmol/L (3.5-5.1)
[2017-06-19 05:55] LABS: INR 1.5 (0.85-1.17); PROTIME 17.6 SECONDS (11.6-15.0)
[2017-06-19 06:21] LABS: BILIRUBIN - TOTAL 2.19 mg/dL (0.2-1.3); PROTEIN - SERUM 6.2 g/dL (6.4-8.2); VANCOMYCIN - RANDOM 15.5 ug/mL (10.0-20.0)
[2017-06-20] VITALS (50 sets, daily range): BP systolic 110–156; BP diastolic 40–58
[2017-06-20 06:26] LABS: BASOPHILS 0.3 % (0-2); EOSINOPHILS 1.1 % (0-7); HEMATOCRIT 30.8 % (42.0-54.0); IMMATURE GRANULOCYTES 0.9 % (0-5); LYMPHOCYTES 6.7 % (15-50); MCH 29.1 pg (26.0-34.0); MCHC 32.5 g/dL (31.0-37.0); MCV 89.5 fL (80.0-100.0); MEAN PLATELET VOLUME 11.9 fL (7.4-10.4); PLATELET COUNT 209 10x3/uL (130-400); RBC 3.44 10x6/uL (4.20-6.10); RDW 17.5 % (11.5-14.5); WBC 13.1 10x3/uL (4.8-10.8)
[2017-06-20 06:30] LABS: INR 1.57 (0.85-1.17); PROTIME 18.2 SECONDS (11.6-15.0)
[2017-06-20 06:38] LABS: ANION GAP 19.2 mmol/L (8-16); CALCIUM 9.2 mg/dL (8.5-10.1); CARBON DIOXIDE 22.9 mmol/L (21.0-32.0); POTASSIUM - SERUM 4.1 mmol/L (3.5-5.1); VANCOMYCIN - RANDOM 18.7 ug/mL (10.0-20.0)
[2017-06-20 06:40] LABS: CREATININE - SERUM 6.3 mg/dL (0.6-1.3)
[2017-06-21] VITALS (44 sets, daily range): BP systolic 100–147; BP diastolic 35–82
[2017-06-21 05:42] LABS: INR 1.59 (0.85-1.17); PROTIME 18.4 SECONDS (11.6-15.0)
[2017-06-21 05:53] LABS: BASOPHILS 0.3 % (0-2); EOSINOPHILS 1.6 % (0-7); HEMATOCRIT 29.4 % (42.0-54.0); HEMOGLOBIN 9.7 g/dL (13.5-17.5); IMMATURE GRANULOCYTES 0.8 % (0-5); LYMPHOCYTES 7.3 % (15-50); MCH 29.4 pg (26.0-34.0); MCV 89.1 fL (80.0-100.0); MEAN PLATELET VOLUME 10.8 fL (7.4-10.4); MONOCYTES 7.3 % (2-11); NEUTROPHILS 82.7 % (40-80); PLATELET COUNT 182 10x3/uL (130-400); RDW 18.2 % (11.5-14.5); WBC 11.4 10x3/uL (4.8-10.8)
[2017-06-21 05:58] LABS: ALBUMIN 2.2 g/dL (3.4-5.0); ANION GAP 16.7 mmol/L (8-16); BILIRUBIN - TOTAL 2.16 mg/dL (0.2-1.3); CALCIUM 8.7 mg/dL (8.5-10.1); CARBON DIOXIDE 25.9 mmol/L (21.0-32.0); CREATININE - SERUM 5.5 mg/dL (0.6-1.3); POTASSIUM - SERUM 3.6 mmol/L (3.5-5.1); PROTEIN - SERUM 5.9 g/dL (6.4-8.2); VANCOMYCIN - RANDOM 14.3 ug/mL (10.0-20.0)
[2017-06-22] VITALS (31 sets, daily range): BP systolic 119–151; BP diastolic 41–82
[2017-06-22 06:17] LABS: BASOPHILS 0.4 % (0-2); EOSINOPHILS 1.8 % (0-7); HEMATOCRIT 29.8 % (42.0-54.0); HEMOGLOBIN 9.9 g/dL (13.5-17.5); LYMPHOCYTES 7.3 % (15-50); MCH 29.3 pg (26.0-34.0); MCHC 33.2 g/dL (31.0-37.0); MCV 88.2 fL (80.0-100.0); MONOCYTES 5.8 % (2-11); NEUTROPHILS 83.7 % (40-80); PLATELET COUNT 158 10x3/uL (130-400); RBC 3.38 10x6/uL (4.20-6.10); RDW 18.6 % (11.5-14.5); WBC 9.3 10x3/uL (4.8-10.8)
[2017-06-22 06:28] LABS: INR 1.57 (0.85-1.17); PROTIME 18.2 SECONDS (11.6-15.0)
[2017-06-22 06:29] LABS: APTT 38.6 SECONDS (22.8-39.4)
[2017-06-22 06:51] LABS: ALBUMIN 2.2 g/dL (3.4-5.0); ANION GAP 17.3 mmol/L (8-16); BILIRUBIN - TOTAL 1.9 mg/dL (0.2-1.3); CALCIUM 8.7 mg/dL (8.5-10.1); CARBON DIOXIDE 23.3 mmol/L (21.0-32.0); PHOSPHOROUS 7.4 mg/dL (2.5-4.9); POTASSIUM - SERUM 3.6 mmol/L (3.5-5.1); PROTEIN - SERUM 5.9 g/dL (6.4-8.2); VANCOMYCIN - RANDOM 22.3 ug/mL (10.0-20.0)
[2017-06-23] VITALS (24 sets, daily range): BP systolic 111–144; BP diastolic 41–80
[2017-06-23 06:19] LABS: BASOPHILS 0.4 % (0-2); EOSINOPHILS 1.8 % (0-7); HEMATOCRIT 27.5 % (42.0-54.0); HEMOGLOBIN 9.4 g/dL (13.5-17.5); IMMATURE GRANULOCYTES 0.8 % (0-5); MCH 29.9 pg (26.0-34.0); MCHC 34.2 g/dL (31.0-37.0); MCV 87.6 fL (80.0-100.0); MONOCYTES 7.3 % (2-11); NEUTROPHILS 81.7 % (40-80); PLATELET COUNT 158 10x3/uL (130-400); RBC 3.14 10x6/uL (4.20-6.10); RDW 19.2 % (11.5-14.5); WBC 7.9 10x3/uL (4.8-10.8)
[2017-06-23 06:26] LABS: INR 1.53 (0.85-1.17); PROTIME 17.9 SECONDS (11.6-15.0)
[2017-06-23 06:27] LABS: APTT 36.5 SECONDS (22.8-39.4)
[2017-06-23 06:38] LABS: ANION GAP 15.3 mmol/L (8-16); CALCIUM 8.6 mg/dL (8.5-10.1); CREATININE - SERUM 5.9 mg/dL (0.6-1.3); MAGNESIUM - SERUM 2.1 mg/dL (1.8-2.4); PHOSPHOROUS 6.6 mg/dL (2.5-4.9); POTASSIUM - SERUM 3.3 mmol/L (3.5-5.1); VANCOMYCIN - RANDOM 17.7 ug/mL (10.0-20.0)
[2017-06-24] VITALS (41 sets, daily range): BP systolic 97–137; BP diastolic 36–78
[2017-06-24 06:40] LABS: BASOPHILS 0.3 % (0-2); EOSINOPHILS 1.6 % (0-7); HEMATOCRIT 27.5 % (42.0-54.0); HEMOGLOBIN 9.2 g/dL (13.5-17.5); IMMATURE GRANULOCYTES 0.5 % (0-5); LYMPHOCYTES 8.3 % (15-50); MCH 29.7 pg (26.0-34.0); MCHC 33.5 g/dL (31.0-37.0); MCV 88.7 fL (80.0-100.0); MONOCYTES 6.5 % (2-11); NEUTROPHILS 82.8 % (40-80); PLATELET COUNT 142 10x3/uL (130-400); RDW 20.1 % (11.5-14.5); WBC 7.5 10x3/uL (4.8-10.8)
[2017-06-24 06:50] LABS: APTT 37.9 SECONDS (22.8-39.4); INR 1.54 (0.85-1.17)
[2017-06-24 06:56] LABS: ANION GAP 15.9 mmol/L (8-16); CALCIUM 8.4 mg/dL (8.5-10.1); CARBON DIOXIDE 23.5 mmol/L (21.0-32.0); CREATININE - SERUM 7.2 mg/dL (0.6-1.3); PHOSPHOROUS 7.9 mg/dL (2.5-4.9); POTASSIUM - SERUM 3.4 mmol/L (3.5-5.1); VANCOMYCIN - RANDOM 16.3 ug/mL (10.0-20.0)
[2017-06-24 18:10] LABS: AEROBE ID Final report (())
[2017-06-25] VITALS (21 sets, daily range): BP systolic 94–121; BP diastolic 32–52
[2017-06-25 06:38] LABS: BASOPHILS 0.3 % (0-2); EOSINOPHILS 1.2 % (0-7); HEMATOCRIT 25.2 % (42.0-54.0); HEMOGLOBIN 8.2 g/dL (13.5-17.5); IMMATURE GRANULOCYTES 0.7 % (0-5); LYMPHOCYTES 6.8 % (15-50); MCH 29.5 pg (26.0-34.0); MCHC 32.5 g/dL (31.0-37.0); MCV 90.6 fL (80.0-100.0); MONOCYTES 6.2 % (2-11); NEUTROPHILS 84.8 % (40-80); RBC 2.78 10x6/uL (4.20-6.10); RDW 21.3 % (11.5-14.5); WBC 8.9 10x3/uL (4.8-10.8)
[2017-06-25 06:40] LABS: PLATELET COUNT 173 10x3/uL (130-400)
[2017-06-25 07:10] LABS: ALBUMIN 1.8 g/dL (3.4-5.0); CALCIUM 8.2 mg/dL (8.5-10.1); CARBON DIOXIDE 25.8 mmol/L (21.0-32.0); CREATININE - SERUM 6.3 mg/dL (0.6-1.3); PHOSPHOROUS 6.4 mg/dL (2.5-4.9); POTASSIUM - SERUM 3.8 mmol/L (3.5-5.1)
[2017-06-25 07:12] LABS: PRE-ALBUMIN 8.8 mg/dL (18.0-35.7)
[2017-06-25 07:51] LABS: APTT 47.5 SECONDS (22.8-39.4); INR 2.03 (0.85-1.17); PROTIME 22.3 SECONDS (11.6-15.0)
[2017-06-26] VITALS (18 sets, daily range): BP systolic 100–126; BP diastolic 35–50
[2017-06-26 06:09] LABS: BASOPHILS 0.2 % (0-2); EOSINOPHILS 1.4 % (0-7); HEMATOCRIT 26.2 % (42.0-54.0); HEMOGLOBIN 8.6 g/dL (13.5-17.5); IMMATURE GRANULOCYTES 0.9 % (0-5); LYMPHOCYTES 9.9 % (15-50); MCH 30.1 pg (26.0-34.0); MCHC 32.8 g/dL (31.0-37.0); MCV 91.6 fL (80.0-100.0); MONOCYTES 7.9 % (2-11); NEUTROPHILS 79.7 % (40-80); PLATELET COUNT 148 10x3/uL (130-400); RBC 2.86 10x6/uL (4.20-6.10); RDW 21.6 % (11.5-14.5); WBC 8.6 10x3/uL (4.8-10.8)
[2017-06-26 06:23] LABS: ANION GAP 17.4 mmol/L (8-16); CALCIUM 8.4 mg/dL (8.5-10.1); CARBON DIOXIDE 23.6 mmol/L (21.0-32.0); CREATININE - SERUM 7.6 mg/dL (0.6-1.3); VANCOMYCIN - TROUGH 20.6 ug/mL (10.0-20.0)
[2017-06-26 06:29] LABS: APTT 73.6 SECONDS (22.8-39.4); INR 2.57 (0.85-1.17); PROTIME 26.9 SECONDS (11.6-15.0)
[2017-06-27] VITALS (15 sets, daily range): BP systolic 107–143; BP diastolic 39–55
[2017-06-27 06:48] LABS: BASOPHILS 0.3 % (0-2); EOSINOPHILS 1.2 % (0-7); HEMATOCRIT 25.9 % (42.0-54.0); HEMOGLOBIN 8.5 g/dL (13.5-17.5); IMMATURE GRANULOCYTES 0.8 % (0-5); LYMPHOCYTES 10.1 % (15-50); MCH 30.2 pg (26.0-34.0); MCHC 32.8 g/dL (31.0-37.0); MCV 92.2 fL (80.0-100.0); MEAN PLATELET VOLUME 9.8 fL (7.4-10.4); MONOCYTES 9.8 % (2-11); NEUTROPHILS 77.8 % (40-80); PLATELET COUNT 128 10x3/uL (130-400); RBC 2.81 10x6/uL (4.20-6.10); RDW 21.7 % (11.5-14.5); WBC 7.4 10x3/uL (4.8-10.8)
[2017-06-27 07:05] LABS: ANION GAP 17.7 mmol/L (8-16); CALCIUM 8.5 mg/dL (8.5-10.1); CARBON DIOXIDE 21.6 mmol/L (21.0-32.0); CREATININE - SERUM 9.1 mg/dL (0.6-1.3); POTASSIUM - SERUM 4.3 mmol/L (3.5-5.1); VANCOMYCIN - RANDOM 17.2 ug/mL (10.0-20.0)
[2017-06-27 09:04] LABS: INR 3.06 (0.85-1.17); PROTIME 30.9 SECONDS (11.6-15.0)
[2017-06-27] MEDS ORDERED: COUMADIN2 MG PO (09:59)
[2017-06-27] MEDS ORDERED: CORDARONE200 MG PO (10:00)
== END 2017-06-27 17:28 | disposition home health service (06) | DRG 371 ==
LOC: D.ER 17:43 → D.CVICU 21:11
PROVIDERS: Emergency Medicine; Family Medicine; Internal Medicine; Internal Medicine Cardiovascular Disease; Internal Medicine Gastroenterology; Internal Medicine Nephrology; Internal Medicine Pulmonary Disease; Surgery
PROC: 5A1935Z Respiratory Ventilation, Less than 24 Consecutive Hours (ICD-10-PCS; 2017-06-15)
PROC: 3E1M38Z Irrigation of Peritoneal Cavity using Irrigating Substance, Percutaneous Approach (ICD-10-PCS; principal; 2017-06-15 12:30)
PROC: B4141ZZ Fluoroscopy of Superior Mesenteric Artery using Low Osmolar Contrast (ICD-10-PCS; 2017-06-20)
DX: K65.9 Peritonitis, unspecified (principal); N18.6 End stage renal disease; K55.059 Acute (reversible) ischemia of intestine, part and extent unspecified; J95.821 Acute postprocedural respiratory failure; K92.2 Gastrointestinal hemorrhage, unspecified; I13.2 Hypertensive heart and chronic kidney disease with heart failure and with stage 5 chronic kidney disease, or end stage renal disease; G72.81 Critical illness myopathy; D62 Acute posthemorrhagic anemia; R18.8 Other ascites; N25.81 Secondary hyperparathyroidism of renal origin; J98.11 Atelectasis; I95.81 Postprocedural hypotension; B95.2 Enterococcus as the cause of diseases classified elsewhere; I48.0 Paroxysmal atrial fibrillation; Z79.01 Long term (current) use of anticoagulants; I50.9 Heart failure, unspecified; Z99.2 Dependence on renal dialysis; J44.9 Chronic obstructive pulmonary disease, unspecified; I25.10 Atherosclerotic heart disease of native coronary artery without angina pectoris; Z95.2 Presence of prosthetic heart valve; Z87.891 Personal history of nicotine dependence

== ENCOUNTER → 2017-07-08 12:14 | Outpatient (CLI) | payer MEDICARE, OTHER ==
[2017-06-16 18:02] VITALS: BMI 30.3
[~2017-07-08 12:14] MED LIST changes: +COUMADIN2 MG PO
== END | disposition home or self-care (01) ==
LOC: D.RAD 12:14
DX: D63.1 Anemia in chronic kidney disease (principal); I25.701 Atherosclerosis of coronary artery bypass graft(s), unspecified, with angina pectoris with documented spasm